=== PATIENT | female | born 1950 | race African-American/Black ===

== ENCOUNTER → 2017-02-17 | Outpatient (CLI) | payer MEDICAID ==
[2016-04-05 20:13] VITALS: BP 210/103
--- NOTE | 2017-02-17 13:11 | CT ---
HISTORY: Persistent headache and visual loss. Study: CT brain without contrast Comparison: None. Technique: Multiple axial images of the brain were obtained from the skull base to the vertex without administra tion of IV contrast. Dose reduction techniques including Automated Exposure Control (AEC) and adjust ment of mA and kV were utilized. Findings: Age related cortical atrophy and chronic small vessel ischemic changes. No acute intraparenchymal hem orrhage or mass can be identified. No extra-axial fluid collections are seen. No alteration in the attenuation of the brain parenchyma can be identified to suggest acute or subacute ischemic change. The ventricular system is symmetric and nondilated. The extracranial structures are grossly unremark able. IMPRESSION: No acute intracranial pathology. Reported By:
== END ==
LOC: RAD 12:02
PROVIDERS: ATTEND Nurse Practitioner Family
DX: G44.52 New daily persistent headache (NDPH) (principal); H54.7 Unspecified visual loss
CPT/HCPCS: 70450

== ENCOUNTER 2017-05-25 16:21 | Observation (INO) | payer MEDICAID ==
[2017-05-25 19:55] LABS: BASOPHILS # (AUTO) 0.1 X10^3/uL (0.0-0.1); BASOPHILS % (AUTO) 1.3 % (0.2-1.0); EOSINOPHILS # (AUTO) 0.1 x10^3/uL (0.0-0.2); EOSINOPHILS % (AUTO) 2.6 % (0.9-2.9); HEMATOCRIT 37.4 % (36.0-47.0); HEMOGLOBIN 12.2 g/dL (12.0-16.0); LYMPHOCYTES # (AUTO) 1.1 X10^3/uL (1.3-2.9); LYMPHOCYTES % (AUTO) 22.9 % (21.0-51.0); MEAN CORPUSCULAR HEMOGLOBIN 26.4 pg (27.0-34.0); MEAN CORPUSCULAR HGB CONC 32.7 g/dL (33.0-35.0); MEAN CORPUSCULAR VOLUME 80.9 fL (80.0-100.0); MEAN PLATELET VOLUME 8.1 fL (7.4-11.0); MONOCYTES # (AUTO) 0.3 x10^3/uL (0.3-0.8); MONOCYTES % (AUTO) 5.6 % (0.0-13.0); NEUTROPHILS # (AUTO) 3.3 x10^3/uL (2.2-4.8); NEUTROPHILS % (AUTO) 67.6 % (42.0-75.0); PLATELET COUNT 198 X10^3/uL (150.0-450.0); RED BLOOD COUNT 4.62 X10^6/uL (3.5-5.4); RED CELL DISTRIBUTION WIDTH 15.8 % (11.6-16.5); WHITE BLOOD COUNT 4.9 X10^3/uL (3.6-10.0)
[2017-05-25] MEDS ORDERED: NS 1/2 1000 ML IV 1,000 ML IV SCH (20:00)
[2017-05-25] MEDS ORDERED: NS 1000 ML 0 ML ONE (20:01)
[2017-05-25 20:07] LABS: BLOOD UREA NITROGEN 33 mg/dL (7-18); CALCIUM 9.3 mg/dL (8.5-10.1); CARBON DIOXIDE 30.3 mmol/L (21-32); CHLORIDE 102 mmol/L (98-107); COR NA(FOR HYPERGLY) 140 mmol/L (136-145); CREATININE 1.96 mg/dL (0.55-1.02); SODIUM 139 mmol/L (136-145); TROPONIN I 0.05 ng/mL (0-1.5); eGFR BLACK RACES 33 (>60); eGFR NON BLACK RACES 27 (>60)
[2017-05-25 20:12] LABS: ALANINE AMINOTRANSFERASE 20 Units/L (12-78); ALBUMIN 3.6 g/dL (3.4-5.0); ALKALINE PHOSPHATASE 72 Units/L (46-116); ASPARTATE AMINO TRANSFERASE 14 Units/L (15-37); CHOL/HDL RATIO 3.2 (0.0-5.0); CHOLESTEROL 224 mg/dL (0-200); CKMB % 0.9 % (<4); CREATINE KINASE 184 Units/L (26-192); CREATINE KINASE MB 1.7 ng/mL (0-4.0); HDL CHOLESTEROL 71 mg/dL (40-60); TOTAL PROTEIN 7.8 g/dL (6.4-8.2); TRIGLYCERIDES 136 mg/dL (0-150); TSH (3RD GENERATION) 2.583 uIU/mL (0.358-3.74)
[2017-05-25] MEDS ORDERED: RANITIDINE HCL 300 MG PO SCH (21:00)
[2017-05-25] MEDS: CATAPRES TAB 0.1 MG PO SCH ×2 (21:03→21:04)
[2017-05-25] MEDS: ZANTAC PO SCH (21:03)
[2017-05-25] MEDS: COREG TAB 25 MG PO SCH (21:04)
[2017-05-25] MEDS: ANTIVERT TAB 25 MG PO SCH (21:06)
[2017-05-25] MEDS ORDERED: NS 1/2 1000 ML IV 1,000 ML IV ONE (21:10)
--- NOTE | 2017-05-25 21:41 | CT ---
HISTORY: Vision impairment and dizziness. Study: CT brain without contrast Comparison: CT head dated February 17, 2017. Technique: Multiple axial images of the brain were obtained from the skull base to the vertex without administra tion of IV contrast. Dose reduction techniques including Automated Exposure Control (AEC) and adjust ment of mA and kV were utilized. Findings: Age-related cortical atrophy and chronic small vessel ischemic changes. No acute intraparenchymal hem orrhage or mass can be identified. No extra-axial fluid collections are seen. No alteration in the attenuation of the brain parenchyma can be identified to suggest acute or subacute ischemic change. The ventricular system is symmetric and nondilated. The extracranial structures are grossly unremark able. IMPRESSION: No acute intracranial pathology. Reported By:
[2017-05-25] MEDS ORDERED: PATIENT'S HOME MEDICATION (Meclizine Hcl [Meclizine Hcl] 12.5 MG) PO SCH (22:00)
--- NOTE | 2017-05-25 22:28 | RAD ---
HISTORY: Cardiomegaly and dizziness. Study: Portable chest. Comparison: Chest x-ray dated July 13, 2015. Findings: The trachea is midline. The cardiac silhouette is unremarkable. No obvious focal consolidation, ple ural effusion, or pneumothorax.. The bony thorax is unremarkable. IMPRESSION: No acute cardiopulmonary disease. Reported By:
[2017-05-26 04:13] LABS: BILIRUBIN,URINE NEGATIVE (NEGATIVE); BLOOD/HEMOGLOBIN,URINE 3+ (NEGATIVE); GLUCOSE, URINE NEGATIVE (NEGATIVE); KETONES,URINE NEGATIVE (NEGATIVE); LEUKOCYTE ESTERASE ,URINE 1+ (NEGATIVE); NITRITES,URINE NEGATIVE (NEGATIVE); PROTEIN,URINE 3+ (NEGATIVE); UROBILINOGEN,URINE NORMAL (NORMAL)
[2017-05-26 05:03] LABS: BASOPHILS # (AUTO) 0.1 X10^3/uL (0.0-0.1); BASOPHILS % (AUTO) 1.9 % (0.2-1.0); EOSINOPHILS # (AUTO) 0.1 x10^3/uL (0.0-0.2); EOSINOPHILS % (AUTO) 1.8 % (0.9-2.9); HEMATOCRIT 35.8 % (36.0-47.0); HEMOGLOBIN 11.8 g/dL (12.0-16.0); LYMPHOCYTES # (AUTO) 1.4 X10^3/uL (1.3-2.9); LYMPHOCYTES % (AUTO) 23.1 % (21.0-51.0); MEAN CORPUSCULAR HEMOGLOBIN 26.5 pg (27.0-34.0); MEAN CORPUSCULAR VOLUME 80.3 fL (80.0-100.0); MEAN PLATELET VOLUME 8.8 fL (7.4-11.0); MONOCYTES # (AUTO) 0.3 x10^3/uL (0.3-0.8); MONOCYTES % (AUTO) 5.2 % (0.0-13.0); NEUTROPHILS # (AUTO) 4.2 x10^3/uL (2.2-4.8); PLATELET COUNT 172 X10^3/uL (150.0-450.0); RED BLOOD COUNT 4.46 X10^6/uL (3.5-5.4); RED CELL DISTRIBUTION WIDTH 15.7 % (11.6-16.5); WHITE BLOOD COUNT 6.1 X10^3/uL (3.6-10.0)
[2017-05-26] MEDS: ANTIVERT TAB 25 MG PO SCH (05:12)
[2017-05-26] MEDS: NORCO 5/325 MG TAB PO PRN ×2 (05:13→10:53)
[2017-05-26 05:15] LABS: ALBUMIN 3.3 g/dL (3.4-5.0); CALCIUM 8.8 mg/dL (8.5-10.1); CARBON DIOXIDE 24.6 mmol/L (21-32); COR CA(FOR HYPOALB) 9.4 mg/dL (8.5-10.1); CREATININE 1.88 mg/dL (0.55-1.02); TOTAL PROTEIN 7.3 g/dL (6.4-8.2)
[2017-05-26 06:09] LABS: APPEARANCE,URINE CLOUDY (CLEAR); BACTERIA,URINE 3+ /HPF (NEGATIVE); COLOR,URINE DARK YELLOW (YELLOW); SQUAMOUS EPITHELIAL CELL,UR NUMEROUS /HPF (NEGATIVE)
[2017-05-26 06:10] LABS: AMORPHOUS SEDIMENT,UR 2+ /HPF (NEGATIVE)
[2017-05-26] MEDS ORDERED: NORVASC TAB 10 MG PO SCH (09:00)
[2017-05-26] MEDS ORDERED: PATIENT'S HOME MEDICATION (Amlodipine Besylate [Amlodipine Besylate] 10 MG) PO SCH (09:00)
[2017-05-26] MEDS ORDERED: ZESTRIL TAB 40 MG PO SCH (09:00)
[2017-05-26] MEDS: CATAPRES TAB 0.1 MG PO SCH (09:36)
[2017-05-26] MEDS: COREG TAB 25 MG PO SCH (09:36)
[2017-05-26] MEDS: ZANTAC PO SCH (09:37)
[2017-05-26 12:48] VITALS: BP 124/76
[2017-05-26 14:30] VITALS: BMI 55.7
== END 2017-05-26 16:45 | disposition home or self-care (01) ==
LOC: MED/SURG 16:21
PROVIDERS: ADMIT Internal Medicine; ATTEND Internal Medicine
DX: I16.0 Hypertensive urgency (principal); R94.31 Abnormal electrocardiogram [ECG] [EKG]; R94.4 Abnormal results of kidney function studies; R73.09 Other abnormal glucose; E78.00 Pure hypercholesterolemia, unspecified; R51 Headache; I50.30 Unspecified diastolic (congestive) heart failure; K21.9 Gastro-esophageal reflux disease without esophagitis; M19.90 Unspecified osteoarthritis, unspecified site; H53.8 Other visual disturbances
CPT/HCPCS: 36415; 70450; 71010; 80053; 80061; 81001; 82550; 82553; 84439; 84443; 84484; 85025; 93005; 93010; A4222; G0378

== ENCOUNTER 2017-10-31 11:58 | Inpatient (IN) | payer MEDICAID ==
[2017-10-31] MEDS ORDERED: HumuLIN R SUBCUT PRN (12:14)
--- NOTE | 2017-10-31 12:20 | DR.H&P ---
H&P - History & Physical for Day of: H&P Date: 10/31/17 - Chief Complaint Chief Complaint: sob, wheezing, swelling to legs - Allergies Allergies/Adverse Reactions: Allergies Allergy/AdvReac Type Severity Reaction Status Date / Time No Known Drug Allergies Allergy Verified 05/25/17 19:41 - History of Present Illness History of Present Illness: PT IS 67 WF DIRECT ADMIT FROM DR SIMS OFFICE WITH CO SOB, COUGH AND WHEEZING, LOWER EXTREMITY EDEMA. PT HAS PMH OF CHF, COPD , OA, HTN, DM. PT ADMITTED FOR TREATMENT AND EVALUATION FOR INCREASED SOB AND COPD WITH EXCERBATION. - Past Medical History Past Medical History: Arthritis, CHF, Coronary Artery Disease, Diabetes, Hypertension - Past Surgical History Surgical History: - Family History Family Medical History: Hypertension - Social History Does patient currently use any type of tobacco product: No Have you used tobacco products in the last 12 months: No Type of Tobacco Use: None Does any household member use tobacco: No Alcohol Use: None Drug Use: None - Review of Systems Constitutional: Weakness, Malaise Eyes: No Symptoms Reported ENT: Throat Pain Respiratory: Shortness of Breath, SOB with Excertion, Wheezing Cardiovascular: Edema Gastrointestinal: Nausea Genitourinary: No Symptoms Reported Musculoskeletal: Back Pain, Leg Pain Skin: No Symptoms Reported Neurological: Weakness - Physical Exam Vital Signs: Blood Pressure [Right Arm] 124/76 Blood Pressure 124/76 Oriented: Normal Eyes: Normal Ear: Normal Nose: Normal Throat: Normal Respiratory: Wheezes Throughout, RLL Diminished, LLL Diminished Cardiovascular: Edema : Normal Auscultation: Bowel Sounds: Normal Palpation: Normal Tenderness: Normal Skin: Decreased Turgur Musculoskeletal: Back:Thoracic, Back:Lumbar Psychiatric: Anxiety Affect: Anxious Speech Pattern: Clear, Appropriate - Assessment/Plan (1) COPD (chronic obstructive pulmonary disease) with acute bronchitis Status: Acute Plan: ADMIT, PNEUMONIA PROTOCOL. IV ABTX, SPUTUM, ABG ON ADMISSION. TELEMETRY , BP CONTROL. RESP THERAPY, ADMISSION LABS. BLOOD SUGAR CONTROL (2) CHF (congestive heart failure) Status: Acute (3) Hypertension Status: Acute (4) Hypertension Status: Acute
[2017-10-31] MEDS ORDERED: SNACK - Diabetic Appropriate PO SCH (20:00)
[2017-10-31] MEDS ORDERED: NS 1/2 1000 ML IV 1,000 ML IV SCH (21:20)
[2017-10-31] MEDS ORDERED: TUSSIONEX PENNKINETIC SUSP PO PRN (21:20)
[2017-10-31] MEDS ORDERED: NS 1/2 1000 ML IV 1,000 ML IV ONE (21:41)
[2017-10-31] MEDS: ROBITUSSIN DM PO SCH (22:01)
[2017-10-31] MEDS: ZITHROMAX INJ 500 MG VIAL 500 MG in NS 250 ML IV 250 ML IV SCH (22:02)
[2017-10-31 22:15] LABS: BASOPHILS # (AUTO) 0.1 X10^3/uL (0.0-0.1); BASOPHILS % (AUTO) 0.8 % (0.2-1.0); EOSINOPHILS # (AUTO) 0.1 x10^3/uL (0.0-0.2); EOSINOPHILS % (AUTO) 2.1 % (0.9-2.9); HEMATOCRIT 35.9 % (36.0-47.0); HEMOGLOBIN 11.8 g/dL (12.0-16.0); LYMPHOCYTES # (AUTO) 1.8 X10^3/uL (1.3-2.9); LYMPHOCYTES % (AUTO) 28.2 % (21.0-51.0); MEAN CORPUSCULAR HEMOGLOBIN 26.7 pg (27.0-34.0); MEAN CORPUSCULAR HGB CONC 32.9 g/dL (33.0-35.0); MEAN CORPUSCULAR VOLUME 80.9 fL (80.0-100.0); MEAN PLATELET VOLUME 8.8 fL (7.4-11.0); MONOCYTES # (AUTO) 0.2 x10^3/uL (0.3-0.8); MONOCYTES % (AUTO) 3.9 % (0.0-13.0); NEUTROPHILS # (AUTO) 4.1 x10^3/uL (2.2-4.8); PLATELET COUNT 182 X10^3/uL (150.0-450.0); RED BLOOD COUNT 4.44 X10^6/uL (3.5-5.4); RED CELL DISTRIBUTION WIDTH 16.6 % (11.6-16.5); WHITE BLOOD COUNT 6.3 X10^3/uL (3.6-10.0)
[2017-10-31 22:43] VITALS: BMI 57.4
[2017-10-31 23:26] LABS: ALBUMIN 3.3 g/dL (3.4-5.0); CALCIUM 8.2 mg/dL (8.5-10.1); CARBON DIOXIDE 25.7 mmol/L (21-32); COR CA(FOR HYPOALB) 8.8 mg/dL (8.5-10.1); CREATININE 2.14 mg/dL (0.55-1.02); TOTAL PROTEIN 7.2 g/dL (6.4-8.2)
[2017-10-31 23:52] LABS: ABG BASE EXCESS 1.7 mmol/L (-2.0-2.0); ABG HCO3 26.6 mmol/L (22-26)
[2017-10-31 23:53] LABS: ABG ALLEN TEST POS
[2017-11-01] MEDS ORDERED: SALINE 3% 15 ML NEB TX ONE (01:23)
[2017-11-01] MEDS ORDERED: SALINE 3% 15 ML NEB TX NEB ONE (01:30)
[2017-11-01] MEDS ORDERED: NORMODYNE INJ 20 MG VIAL IV PRN (02:16)
--- NOTE | 2017-11-01 04:07 | RAD ---
PA and lateral Chest Indication: Shortness of breath Comparison: 05/25/2017 Findings: The trachea is midline. The cardiac silhouette is unremarkable. Increased peribronchial thickening bilaterally suggest bronchitis. No focal airspace opacity, pleural effusion or pneumothorax.. The [place] thorax is unremarkable. IMPRESSION: 1. Bilateral increased peribronchial thickening suggests acute bronchitis without evidence of bronch opneumonia. Reported By:
[2017-11-01] MEDS: DUONEB 0.5 MG/3 MG NEB SCH ×5 (05:50→20:46)
[2017-11-01 06:14] LABS: BASOPHILS % (AUTO) 0.5 % (0.2-1.0); EOSINOPHILS # (AUTO) 0.1 x10^3/uL (0.0-0.2); EOSINOPHILS % (AUTO) 2.1 % (0.9-2.9); HEMATOCRIT 33.2 % (36.0-47.0); LYMPHOCYTES # (AUTO) 1.6 X10^3/uL (1.3-2.9); LYMPHOCYTES % (AUTO) 30.6 % (21.0-51.0); MEAN CORPUSCULAR HEMOGLOBIN 26.6 pg (27.0-34.0); MEAN CORPUSCULAR HGB CONC 33.1 g/dL (33.0-35.0); MEAN CORPUSCULAR VOLUME 80.2 fL (80.0-100.0); MEAN PLATELET VOLUME 8.1 fL (7.4-11.0); MONOCYTES # (AUTO) 0.2 x10^3/uL (0.3-0.8); MONOCYTES % (AUTO) 4.6 % (0.0-13.0); NEUTROPHILS # (AUTO) 3.4 x10^3/uL (2.2-4.8); NEUTROPHILS % (AUTO) 62.2 % (42.0-75.0); PLATELET COUNT 155 X10^3/uL (150.0-450.0); RED BLOOD COUNT 4.14 X10^6/uL (3.5-5.4); RED CELL DISTRIBUTION WIDTH 16.2 % (11.6-16.5); WHITE BLOOD COUNT 5.4 X10^3/uL (3.6-10.0)
[2017-11-01 06:53] LABS: ALBUMIN 3.1 g/dL (3.4-5.0); CALCIUM 8.1 mg/dL (8.5-10.1); COR CA(FOR HYPOALB) 8.8 mg/dL (8.5-10.1); CREATININE 1.94 mg/dL (0.55-1.02)
[2017-11-01] MEDS: ROBITUSSIN DM PO SCH ×4 (08:20→20:50)
[2017-11-01] MEDS: PULMICORT NEB TX 0.5 MG NEB SCH ×2 (09:38→20:46)
--- NOTE | 2017-11-01 12:39 | RAD ---
Right shoulder three views Indication: Pain after fall Findings: Acromioclavicular and glenohumeral joints demonstrate degenerative change without cortical lucency or malalignment. Impression: Degenerative change without acute fracture Reported By:
--- NOTE | 2017-11-01 12:42 | RAD ---
Cervical spine three views Indication: Pain after fall Findings: Prevertebral soft tissues are normal. Craniocervical junction is intact there is disc space narrowing at C6-C7 cervicothoracic junction not well visualized. Impression: 1. No convincing displaced fracture, within the cervical thoracic junction is poorly evaluated. Corre late with point tenderness and follow-up with further imaging if there is high suspicion for acute in jury Reported By:
--- NOTE | 2017-11-01 13:39 | PCM.PROG ---
Progress Note - Progress Note for Day of Date: 11/01/17 - Subjective Subjective: 67 BF ADMITTED ON 10/31 WITH COPD EXACERBATION, SOB, WHEEZING AND LOWER EXTREMITY SWELLING WITH WEAKNESS. 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 PT CONTINUES WITH CO SOB AND WHEEZING. PT CO RIGHT SHOULDER PAIN AND NECK PAIN FROM FALL COMMUNICATION EQUIPMENT MECHANIC DUE TO WEAKNESS. PLAN TO OBTAIN XRAYS OF SHOULDER AND CPSINE, CONTINUE JT NEBS, LOW DOSE STEROIDS, IV ATBX, BLOOD SUGAR CONTROL - Past Medical Family Social History Past Med/Fam/Surg Hx: No changes since H&P Allergies: Allergies No Known Drug Allergies Allergy (Verified 10/31/17 21:01) - Review of Systems ROS: No change since H&P - Vital Signs and I&O's Vital Signs: Temperature 97.6 F Pulse Rate [Radial] 67 Pulse Rate 69 Respiratory Rate 17 Blood Pressure [Right Arm] 141/85 Blood Pressure 124/76 O2 Sat by Pulse Oximetry 95 Intake and Output: Intake & Output 10/30/17 10/31/17 11/01/17 11/02/17 11:59 11:59 11:59 11:59 Intake Total 500 Balance 500 - Physical Exam Oriented: Normal Eyes: Normal Ear: Normal Nose: Normal Throat: Normal Respiratory: Diminished, Wheezes Cardiovascular: Edema : Normal Auscultation: Bowel Sounds: Normal Tenderness: Normal Skin: Decreased Turgur Musculoskeletal: Right, Shoulder, Back:Thoracic, Back:Lumbar Psychiatric: Anxiety Affect: Anxious Speech Pattern: Clear, Appropriate - Laboratory and Diagnostics Result Diagrams: 11/01/17 05:32 11/01/17 05:32 Labs: Laboratory WBC 5.4 X10^3/uL (3.6-10.0) 11/01/17 05:32 RBC 4.14 X10^6/uL (3.5-5.4) 11/01/17 05:32 Hgb 11.0 g/dL (12.0-16.0) L 11/01/17 05:32 Hct 33.2 % (36.0-47.0) L 11/01/17 05:32 MCV 80.2 fL (80.0-100.0) 11/01/17 05:32 MCH 26.6 pg (27.0-34.0) L 11/01/17 05:32 MCHC 33.1 g/dL (33.0-35.0) 11/01/17 05:32 RDW 16.2 % (11.6-16.5) 11/01/17 05:32 Plt Count 155 X10^3/uL (150.0-450.0) 11/01/17 05:32 MPV 8.1 fL (7.4-11.0) 11/01/17 05:32 Neut % (Auto) 62.2 % (42.0-75.0) 11/01/17 05:32 Lymph % (Auto) 30.6 % (21.0-51.0) 11/01/17 05:32 [place] % (Auto) 4.6 % (0.0-13.0) 11/01/17 05:32 Eos % (Auto) 2.1 % (0.9-2.9) 11/01/17 05:32 Baso % (Auto) 0.5 % (0.2-1.0) 11/01/17 05:32 Neut # (Auto) 3.4 x10^3/uL (2.2-4.8) 11/01/17 05:32 Lymph # (Auto) 1.6 X10^3/uL (1.3-2.9) 11/01/17 05:32 [place] # (Auto) 0.2 x10^3/uL (0.3-0.8) L 11/01/17 05:32 Eos # (Auto) 0.1 x10^3/uL (0.0-0.2) 11/01/17 05:32 Baso # (Auto) 0.0 X10^3/uL (0.0-0.1) 11/01/17 05:32 Absolute Nucleated RBC 0.0 /100WBC 11/01/17 05:32 Sample Site Right radial 10/31/17 23:45 ABG pH 7.410 (7.35-7.45) 10/31/17 23:45 ABG pCO2 42.0 mmHg (35.0-45.0) 10/31/17 23:45 ABG pO2 85.0 mmHg (80.0-100.0) 10/31/17 23:45 ABG HCO3 26.6 mmol/L (22-26) H 10/31/17 23:45 ABG O2 Saturation 96.0 % (90-100) 10/31/17 23:45 ABG Base Excess 1.7 mmol/L (-2.0-2.0) 10/31/17 23:45 Francisco Javier Test Pos 10/31/17 23:45 A-a Gradient 12.0 mmHg 10/31/17 23:45 FiO2 21.000 10/31/17 23:45 Blood Gas Comments Pricila well jts 10/31/17 23:45 Sodium 139 mmol/L (136-145) 11/01/17 05:32 Corrected Sodium 140 mmol/L (136-145) 11/01/17 05:32 Potassium 3.6 mmol/L (3.5-5.1) 11/01/17 05:32 Chloride 106 mmol/L (98-107) 11/01/17 05:32 Carbon Dioxide 25.0 mmol/L (21-32) 11/01/17 05:32 BUN 29 mg/dL (7-18) H 11/01/17 05:32 Creatinine 1.94 mg/dL (0.55-1.02) H 11/01/17 05:32 Est GFR (MDRD) Af Amer 33 (>60) L 11/01/17 05:32 Est GFR (MDRD) Non-Af 28 (>60) L 11/01/17 05:32 Glucose 131 mg/dL (65-99) H 11/01/17 05:32 POC Glucose (mg/dL) 129 mg/dL (65-99) H 11/01/17 11:23 Calcium 8.1 mg/dL (8.5-10.1) L 11/01/17 05:32 Corrected Calcium 8.8 mg/dL (8.5-10.1) 11/01/17 05:32 Magnesium 1.8 mg/dL (1.7-2.9) 11/01/17 05:32 Total Bilirubin 0.40 mg/dL (0.2-1.0) 11/01/17 05:32 AST 14 Units/L (15-37) L 11/01/17 05:32 ALT 15 Units/L (12-78) 11/01/17 05:32 Alkaline Phosphatase 67 Units/L (46-116) 11/01/17 05:32 Total Protein 7.0 g/dL (6.4-8.2) 11/01/17 05:32 Albumin 3.1 g/dL (3.4-5.0) L 11/01/17 05:32 Globulin 3.9 g/dL (2.5-4.5) 11/01/17 05:32 Albumin/Globulin Ratio 0.8 Ratio (1.1-2.1) L 11/01/17 05:32 - Plan (1) COPD (chronic obstructive pulmonary disease) with acute bronchitis Status: Acute Plan: PNEUMONIA PROTOCOL. IV ABTX, SPUTUM, ABG ON ADMISSION. TELEMETRY, BP CONTROL. RESP THERAPY, AM LABS, LOW DOSE SOLU MEDROL IV. 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 PAIN CONTROL
[2017-11-01] MEDS: ANTIVERT TAB 25 MG PO SCH ×2 (13:45→21:00)
[2017-11-01] MEDS: MILK OF MAGNESIA PO SCH ×2 (13:57→21:05)
[2017-11-01] MEDS: COLACE CAP 100 MG PO SCH ×2 (13:57→21:05)
[2017-11-01] MEDS: SOLU-Medrol 40 MG VIAL IVP SCH ×2 (15:21→22:09)
[2017-11-01] MEDS: NORCO 7.5/325 MG TAB PO PRN (15:22)
[2017-11-01] MEDS ORDERED: SNACK - Diabetic Appropriate PO SCH (20:00)
[2017-11-01] MEDS: SNACK - Diabetic Appropriate PO SCH (20:48)
[2017-11-01] MEDS: COREG TAB 25 MG PO SCH (20:49)
[2017-11-01] MEDS: ZANTAC PO SCH (20:50)
[2017-11-01] MEDS: ZITHROMAX INJ 500 MG VIAL 500 MG in NS 250 ML IV 250 ML IV SCH (20:51)
[2017-11-01] MEDS: CATAPRES TAB 0.1 MG PO SCH (20:57)
[2017-11-01] MEDS: HumuLIN R SUBCUT PRN (21:11)
[2017-11-02] MEDS: DUONEB 0.5 MG/3 MG NEB SCH ×6 (01:14→20:41)
[2017-11-02] MEDS ORDERED: K-LYTE EFFERVESCENT PO PRN (02:32)
[2017-11-02] MEDS ORDERED: K-RIDER 10 MEQ/NS 100 ML 10 MEQ/100 ML BAG IV PRN (02:32)
[2017-11-02] MEDS ORDERED: POTASSIUM CHL 60 MEQ/NS 0.45% 500 ML IV PRN (02:32)
[2017-11-02] MEDS ORDERED: POTASSIUM CHLORIDE LIQ 20 MEQ UDC PO PRN (02:32)
[2017-11-02] MEDS ORDERED: POTASSIUM CHL 40 MEQ/NS 0.45% 500 ML IV PRN (02:32)
[2017-11-02] MEDS: MAGNESIUM SULFATE 1 GM/100 mL PREMIX 1 GM/100 ML BAG IV PRN ×2 (02:41→03:50)
[2017-11-02] MEDS: ANTIVERT TAB 25 MG PO SCH ×3 (05:49→21:00)
[2017-11-02] MEDS: SOLU-Medrol 40 MG VIAL IVP SCH (05:52)
[2017-11-02] MEDS: HumuLIN R SUBCUT PRN ×2 (06:32→12:25)
[2017-11-02 06:42] LABS: BASOPHILS % (AUTO) 0.5 % (0.2-1.0); EOSINOPHILS % (AUTO) 0.1 % (0.9-2.9); HEMATOCRIT 38.5 % (36.0-47.0); HEMOGLOBIN 12.5 g/dL (12.0-16.0); LYMPHOCYTES # (AUTO) 0.5 X10^3/uL (1.3-2.9); LYMPHOCYTES % (AUTO) 5.9 % (21.0-51.0); MEAN CORPUSCULAR HEMOGLOBIN 26.8 pg (27.0-34.0); MEAN CORPUSCULAR HGB CONC 32.6 g/dL (33.0-35.0); MEAN CORPUSCULAR VOLUME 82.3 fL (80.0-100.0); MONOCYTES # (AUTO) 0.1 x10^3/uL (0.3-0.8); MONOCYTES % (AUTO) 0.7 % (0.0-13.0); NEUTROPHILS # (AUTO) 7.3 x10^3/uL (2.2-4.8); NEUTROPHILS % (AUTO) 92.8 % (42.0-75.0); PLATELET COUNT 211 X10^3/uL (150.0-450.0); RED BLOOD COUNT 4.68 X10^6/uL (3.5-5.4); RED CELL DISTRIBUTION WIDTH 16.3 % (11.6-16.5); WHITE BLOOD COUNT 7.9 X10^3/uL (3.6-10.0)
[2017-11-02] MEDS: NORCO 7.5/325 MG TAB PO PRN ×3 (06:57→20:56)
[2017-11-02 07:09] LABS: ALANINE AMINOTRANSFERASE 19 Units/L (12-78); ALBUMIN 3.7 g/dL (3.4-5.0); ALKALINE PHOSPHATASE 82 Units/L (46-116); ASPARTATE AMINO TRANSFERASE 13 Units/L (15-37); BLOOD UREA NITROGEN 28 mg/dL (7-18); CALCIUM 8.5 mg/dL (8.5-10.1); CARBON DIOXIDE 25.6 mmol/L (21-32); CHLORIDE 102 mmol/L (98-107); COR NA(FOR HYPERGLY) 138 mmol/L (136-145); CREATININE 1.74 mg/dL (0.55-1.02); SODIUM 136 mmol/L (136-145); TOTAL PROTEIN 8.2 g/dL (6.4-8.2); eGFR BLACK RACES 38 (>60); eGFR NON BLACK RACES 31 (>60)
[2017-11-02 07:26] LABS: PLATELET MORPHOLOGY COMMENT NORMAL (NORMAL)
[2017-11-02] MEDS: ROBITUSSIN DM PO SCH ×4 (08:53→20:56)
[2017-11-02] MEDS: ZANTAC PO SCH ×2 (08:53→20:55)
[2017-11-02] MEDS: COREG TAB 25 MG PO SCH ×2 (08:53→20:55)
[2017-11-02] MEDS: ASPIRIN 81 MG CHEWTAB PO SCH (08:54)
[2017-11-02] MEDS: CATAPRES TAB 0.1 MG PO SCH ×2 (08:54→20:56)
[2017-11-02] MEDS: ZESTRIL TAB 40 MG PO SCH (08:54)
[2017-11-02] MEDS: PULMICORT NEB TX 0.5 MG NEB SCH ×2 (09:25→20:41)
--- NOTE | 2017-11-02 11:54 | PCM.PROG ---
Progress Note - Progress Note for Day of Date: 11/02/17 - Subjective Subjective: 67 BF ADMITTED ON 10/31 WITH COPD EXACERBATION, SOB, WHEEZING AND LOWER EXTREMITY SWELLING WITH WEAKNESS. 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 PT CONTINUES WITH CO SOB AND WHEEZING, UNABLE TO PRODUCE SPUTUM. CONTINUE JT NEBS, LOW DOSE STEROIDS, IV ATBX, BLOOD SUGAR CONTROL - Past Medical Family Social History Past Med/Fam/Surg Hx: No changes since H&P Allergies: Allergies No Known Drug Allergies Allergy (Verified 10/31/17 21:01) - Review of Systems ROS: No change since H&P - Vital Signs and I&O's Vital Signs: Temperature 97.5 F Pulse Rate [Right] 64 Pulse Rate [Radial] 59 Pulse Rate 73 Respiratory Rate 15 Blood Pressure [Right Arm] 184/83 Blood Pressure 124/76 O2 Sat by Pulse Oximetry 96 Intake and Output: Intake & Output 10/30/17 10/31/17 11/01/17 11/02/17 11:59 11:59 11:59 11:59 Intake Total 500 1750 Output Total 670 Balance 500 1080 - Physical Exam Oriented: Normal Eyes: Normal Ear: Normal Nose: Normal Throat: Normal Respiratory: Wheezes, Rhonchi Cardiovascular: Edema : Normal Auscultation: Bowel Sounds: Normal Tenderness: Normal Skin: Decreased Turgur Musculoskeletal: Right, Shoulder, Back:Thoracic, Back:Lumbar Psychiatric: Anxiety Affect: Anxious Speech Pattern: Clear, Appropriate - Laboratory and Diagnostics Result Diagrams: 11/02/17 06:15 11/02/17 06:15 Labs: 10/31/17 21:52 Blood Blood Culture - Preliminary 10/31/17 21:40 Blood Blood Culture - Preliminary Laboratory WBC 7.9 X10^3/uL (3.6-10.0) 11/02/17 06:15 RBC 4.68 X10^6/uL (3.5-5.4) 11/02/17 06:15 Hgb 12.5 g/dL (12.0-16.0) 11/02/17 06:15 Hct 38.5 % (36.0-47.0) 11/02/17 06:15 MCV 82.3 fL (80.0-100.0) 11/02/17 06:15 MCH 26.8 pg (27.0-34.0) L 11/02/17 06:15 MCHC 32.6 g/dL (33.0-35.0) L 11/02/17 06:15 RDW 16.3 % (11.6-16.5) 11/02/17 06:15 Plt Count 211 X10^3/uL (150.0-450.0) 11/02/17 06:15 Plt Count Comment Adequate (ADEQUATE) 11/02/17 06:15 MPV 8.0 fL (7.4-11.0) 11/02/17 06:15 Neut % (Auto) 92.8 % (42.0-75.0) H 11/02/17 06:15 Lymph % (Auto) 5.9 % (21.0-51.0) L 11/02/17 06:15 [place] % (Auto) 0.7 % (0.0-13.0) 11/02/17 06:15 Eos % (Auto) 0.1 % (0.9-2.9) L 11/02/17 06:15 Baso % (Auto) 0.5 % (0.2-1.0) 11/02/17 06:15 Neut # (Auto) 7.3 x10^3/uL (2.2-4.8) H 11/02/17 06:15 Lymph # (Auto) 0.5 X10^3/uL (1.3-2.9) L 11/02/17 06:15 [place] # (Auto) 0.1 x10^3/uL (0.3-0.8) L 11/02/17 06:15 Eos # (Auto) 0.0 x10^3/uL (0.0-0.2) 11/02/17 06:15 Baso # (Auto) 0.0 X10^3/uL (0.0-0.1) 11/02/17 06:15 Absolute Nucleated RBC 0.0 /100WBC 11/02/17 06:15 Total Counted 100 11/02/17 06:15 Neutrophils % (Manual) 93 % (39-76) H 11/02/17 06:15 Lymphocytes % (Manual) 7 % (13-43) L 11/02/17 06:15 Plt Morphology Comment Normal (NORMAL) 11/02/17 06:15 RBC Morphology Normal (NORMAL) 11/02/17 06:15 Sample Site Right radial 10/31/17 23:45 ABG pH 7.410 (7.35-7.45) 10/31/17 23:45 ABG pCO2 42.0 mmHg (35.0-45.0) 10/31/17 23:45 ABG pO2 85.0 mmHg (80.0-100.0) 10/31/17 23:45 ABG HCO3 26.6 mmol/L (22-26) H 10/31/17 23:45 ABG O2 Saturation 96.0 % (90-100) 10/31/17 23:45 ABG Base Excess 1.7 mmol/L (-2.0-2.0) 10/31/17 23:45 Francisco Javier Test Pos 10/31/17 23:45 A-a Gradient 12.0 mmHg 10/31/17 23:45 FiO2 21.000 10/31/17 23:45 Blood Gas Comments Pricila well jts 10/31/17 23:45 Sodium 136 mmol/L (136-145) 11/02/17 06:15 Corrected Sodium 138 mmol/L (136-145) 11/02/17 06:15 Potassium 4.4 mmol/L (3.5-5.1) 11/02/17 06:15 Chloride 102 mmol/L (98-107) 11/02/17 06:15 Carbon Dioxide 25.6 mmol/L (21-32) 11/02/17 06:15 BUN 28 mg/dL (7-18) H 11/02/17 06:15 Creatinine 1.74 mg/dL (0.55-1.02) H 11/02/17 06:15 Est GFR (MDRD) Af Amer 38 (>60) L 11/02/17 06:15 Est GFR (MDRD) Non-Af 31 (>60) L 11/02/17 06:15 Glucose 172 mg/dL (65-99) H 11/02/17 06:15 POC Glucose (mg/dL) 241 mg/dL (65-99) H 11/02/17 11:12 Calcium 8.5 mg/dL (8.5-10.1) 11/02/17 06:15 Corrected Calcium TNP 11/02/17 06:15 Magnesium 2.7 mg/dL (1.7-2.9) 11/02/17 06:15 Total Bilirubin 0.30 mg/dL (0.2-1.0) 11/02/17 06:15 AST 13 Units/L (15-37) L 11/02/17 06:15 ALT 19 Units/L (12-78) 11/02/17 06:15 Alkaline Phosphatase 82 Units/L (46-116) 11/02/17 06:15 Total Protein 8.2 g/dL (6.4-8.2) 11/02/17 06:15 Albumin 3.7 g/dL (3.4-5.0) 11/02/17 06:15 Globulin 4.5 g/dL (2.5-4.5) 11/02/17 06:15 Albumin/Globulin Ratio 0.8 Ratio (1.1-2.1) L 11/02/17 06:15 - Plan (1) COPD (chronic obstructive pulmonary disease) with acute bronchitis Status: Acute Plan: PNEUMONIA PROTOCOL. IV ABTX, SPUTUM UNCOLLECTED, ENCOURAGED PULMONARY TOILETING. ABG ON ADMISSION. TELEMETRY, BP CONTROL. RESP THERAPY, AM LABS, LOW DOSE SOLU MEDROL IV WITH IMPROVED SOB AND WHEEZING THIS AM. 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 PAIN CONTROL
[2017-11-02] MEDS ORDERED: SALINE 3% 15 ML NEB TX ONE (13:48)
[2017-11-02] MEDS: SNACK - Diabetic Appropriate PO SCH (20:55)
[2017-11-02] MEDS: COLACE CAP 100 MG PO SCH (20:56)
[2017-11-02] MEDS: MILK OF MAGNESIA PO SCH (20:57)
[2017-11-03] MEDS: DUONEB 0.5 MG/3 MG NEB SCH ×3 (00:57→09:29)
[2017-11-03 05:38] LABS: BASOPHILS % (AUTO) 0.3 % (0.2-1.0); EOSINOPHILS % (AUTO) 0.1 % (0.9-2.9); HEMATOCRIT 32.7 % (36.0-47.0); HEMOGLOBIN 10.9 g/dL (12.0-16.0); LYMPHOCYTES # (AUTO) 1.4 X10^3/uL (1.3-2.9); LYMPHOCYTES % (AUTO) 18.8 % (21.0-51.0); MEAN CORPUSCULAR HEMOGLOBIN 26.6 pg (27.0-34.0); MEAN CORPUSCULAR HGB CONC 33.3 g/dL (33.0-35.0); MEAN CORPUSCULAR VOLUME 79.8 fL (80.0-100.0); MEAN PLATELET VOLUME 8.2 fL (7.4-11.0); MONOCYTES # (AUTO) 0.4 x10^3/uL (0.3-0.8); MONOCYTES % (AUTO) 4.6 % (0.0-13.0); NEUTROPHILS # (AUTO) 5.8 x10^3/uL (2.2-4.8); NEUTROPHILS % (AUTO) 76.2 % (42.0-75.0); PLATELET COUNT 186 X10^3/uL (150.0-450.0); WHITE BLOOD COUNT 7.6 X10^3/uL (3.6-10.0)
[2017-11-03 05:39] LABS: ALBUMIN 3.2 g/dL (3.4-5.0); CALCIUM 8.1 mg/dL (8.5-10.1); CARBON DIOXIDE 28.4 mmol/L (21-32); COR CA(FOR HYPOALB) 8.7 mg/dL (8.5-10.1); CREATININE 2.04 mg/dL (0.55-1.02); TOTAL PROTEIN 7.4 g/dL (6.4-8.2)
[2017-11-03] MEDS: ANTIVERT TAB 25 MG PO SCH (06:00)
[2017-11-03] MEDS: PULMICORT NEB TX 0.5 MG NEB SCH (09:30)
[2017-11-03] MEDS: ZANTAC PO SCH (09:56)
[2017-11-03] MEDS: CATAPRES TAB 0.1 MG PO SCH (09:57)
[2017-11-03] MEDS: ZESTRIL TAB 40 MG PO SCH (09:57)
[2017-11-03] MEDS: ASPIRIN 81 MG CHEWTAB PO SCH (09:57)
[2017-11-03] MEDS: COREG TAB 25 MG PO SCH (09:57)
[2017-11-03] MEDS: ROBITUSSIN DM PO SCH (09:57)
[2017-11-03 11:11] VITALS: BP 174/76
== END 2017-11-03 11:10 | disposition home or self-care (01) | DRG 192 ==
LOC: ICU 11:58 → OBSVTOIN 11-01 09:00 → MED/SURG 11-02 19:05
PROVIDERS: ADMIT Internal Medicine; ATTEND Internal Medicine
DX: J44.1 Chronic obstructive pulmonary disease with (acute) exacerbation (principal); J20.8 Acute bronchitis due to other specified organisms; R94.4 Abnormal results of kidney function studies; E11.65 Type 2 diabetes mellitus with hyperglycemia; R06.02 Shortness of breath; R60.0 Localized edema; I10 Essential (primary) hypertension; I25.10 Atherosclerotic heart disease of native coronary artery without angina pectoris; I50.9 Heart failure, unspecified; M25.511 Pain in right shoulder; M54.2 Cervicalgia; Z91.81 History of falling
CPT/HCPCS: 36415; 36600; 71046; 72040; 73030; 80053; 82803; 83735; 85025; 87040; 87070; 87205; 93005; 93010; 94640; A4222; G0378; J0456; J1815; J2920; J3490; J7620; J7626

== ENCOUNTER 2018-05-25 12:51 | Observation (INO) ==
[2018-05-25 13:00] VITALS: BMI 59.5
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
[2018-05-25 16:16] LABS: BASOPHILS % (AUTO) 0.8 % (0.2-1.0); EOSINOPHILS # (AUTO) 0.1 x10^3/uL (0.0-0.2); EOSINOPHILS % (AUTO) 1.3 % (0.9-2.9); HEMATOCRIT 34.6 % (36.0-47.0); HEMOGLOBIN 10.9 g/dL (12.0-16.0); LYMPHOCYTES # (AUTO) 2.2 X10^3/uL (1.3-2.9); MEAN CORPUSCULAR HEMOGLOBIN 26.3 pg (27.0-34.0); MEAN CORPUSCULAR HGB CONC 31.5 g/dL (33.0-35.0); MEAN CORPUSCULAR VOLUME 83.6 fL (80.0-100.0); MEAN PLATELET VOLUME 8.1 fL (7.4-11.0); MONOCYTES # (AUTO) 0.4 x10^3/uL (0.3-0.8); MONOCYTES % (AUTO) 7.1 % (0.0-13.0); NEUTROPHILS # (AUTO) 2.5 x10^3/uL (2.2-4.8); NEUTROPHILS % (AUTO) 48.8 % (42.0-75.0); PLATELET COUNT 211 X10^3/uL (150.0-450.0); RED BLOOD COUNT 4.14 X10^6/uL (3.5-5.4); RED CELL DISTRIBUTION WIDTH 16.3 % (11.6-16.5); WHITE BLOOD COUNT 5.2 X10^3/uL (3.6-10.0)
[2018-05-25 16:24] LABS: ALBUMIN 3.3 g/dL (3.4-5.0); CALCIUM 8.8 mg/dL (8.5-10.1); CARBON DIOXIDE 24.9 mmol/L (21-32); COR CA(FOR HYPOALB) 9.4 mg/dL (8.5-10.1); CREATININE 2.39 mg/dL (0.55-1.02); TOTAL PROTEIN 7.7 g/dL (6.4-8.2)
[2018-05-25 16:39] LABS: PLATELET MORPHOLOGY COMMENT NORMAL (NORMAL)
[2018-05-25] MEDS ORDERED: NS 1000 ML 1,000 ML IV ONE (17:36)
[2018-05-25] MEDS ORDERED: NS 1000 ML 1,000 ML ONE (17:37)
[2018-05-25 18:32] LABS: BILIRUBIN,URINE NEGATIVE (NEGATIVE); BLOOD/HEMOGLOBIN,URINE 1+ (NEGATIVE); GLUCOSE, URINE NEGATIVE (NEGATIVE); KETONES,URINE NEGATIVE (NEGATIVE); LEUKOCYTE ESTERASE ,URINE NEGATIVE (NEGATIVE); NITRITES,URINE NEGATIVE (NEGATIVE); PROTEIN,URINE 2+ (NEGATIVE); UROBILINOGEN,URINE NORMAL (NORMAL)
[2018-05-25 18:33] LABS: APPEARANCE,URINE HAZY (CLEAR); COLOR,URINE YELLOW (YELLOW)
[2018-05-25 18:38] LABS: RBC,URINE 0-2 /HPF (NONE SEEN)
[2018-05-25 18:39] LABS: AMORPHOUS SEDIMENT,UR TRACE /HPF (NEGATIVE); BACTERIA,URINE NEGATIVE /HPF (NEGATIVE); SQUAMOUS EPITHELIAL CELL,UR NEGATIVE /HPF (NEGATIVE)
--- NOTE | 2018-05-25 19:37 | DR.DIZZY ---
HPI Time seen Time Seen by Provider: 05/25/18 14:34 PCP Primary Care Physician: KARLEE Complaint Chief Complaint:: PT. HAD A FALL AT HOME. EMS WENT TO ASSIST PT. AND PT. WAS UNABLE TO STAND. PT. JUST GOT HOME YESTERDAY FROM [facility] IN [place], [place]. PT. STATES SHE AMBULATES WITH A CANE AT HOME. PT. DENIES PAIN FROM FALL. Source History Provided: Patient and EMS Mode of Arrival Mode of Arrival: EMS Timing Onset of Chief Complaint: 05/25/18 Context Stroke Symptoms: None PMH PMH Past Medical History: Yes Past Medical History: Arthritis, CHF, Coronary Artery Disease, CVA, Diabetes and Hypertension Past Surgical History: Yes Surgical History: Family History History of Family Medical Conditions: Yes Family Medical History: Hypertension Social History Does patient currently use any type of tobacco product: No Have you used tobacco products in the last 12 months: No Type of Tobacco Use: None Does any household member use tobacco: No Alcohol Use: None Do you use any recreational Drugs:: No Lives With: Family Lives Where: Home infectious screening In the last 2 months have you had wt loss of >10#?: NO Have you had fever, night sweats or hemotysis?: No Have you traveled outside the country in the last 6 months?: No Isolation: Standard PE Vital Signs Vitals: Temperature 99 F Pulse Rate [Right Brachial] 70 Pulse Rate 70 Respiratory Rate 20 Blood Pressure [Left Arm] 186/84 Blood Pressure [Right Arm] 136/71 Blood Pressure 138/89 O2 Sat by Pulse Oximetry 100 General Limitations: No Limitations and Language Barrier General Appearance: Alert and In No Apparent Distress Head Head Exam: Normal Inspection, Atraumatic and Normocephalic Eyes Eye exam: Normal Appearance, PERRL and EOMI Pupils: Regular, Round: Bilateral Sclera/Conjunctival: Normal Inspection: Bilateral Posterior Chamber: Deferred: Bilateral ENT ENT Exam: Normal Exam and Normal Oropharynx Neck Neck Exam: Normal Inspection and Trachea Midline Chest Chest Inspection: Normal Inspection and Tenderness Respiratory Respiratory Exam: Normal Lung Sounds Bilat Respiratory Exam: Bilateral: Clear to Auscultation Cardiovascular Cardiovascular Exam: Regular Rate and Normal Rhythm Abdominal Exam Abdominal Exam: Normal Bowel Sounds and Soft Extremeties Extremities Exam: Normal Inspection Back Back Exam: Normal Inspection Neurologic Neurological Exam: Alert, Oriented X3 and CN II-XII Intact Cranial Nerve Exam: EOM Function (II, III, IV, ): Normal Psychiatric Psychiatric Exam: Normal Affect, Normal Mood and Depressed Skin Skin Exam: Warm, Dry and Intact COURSE Treatment Treatment: NS 1.5L. Reevaluation 1st: Improved ROR Labs Reviewed Laboratory Results Reviewed?: Yes Result Diagrams: 05/25/18 16:05 05/25/18 16:05 Laboratory: WBC 5.2 X10^3/uL (3.6-10.0) 05/25/18 16:05 RBC 4.14 X10^6/uL (3.5-5.4) 05/25/18 16:05 Hgb 10.9 g/dL (12.0-16.0) L 05/25/18 16:05 Hct 34.6 % (36.0-47.0) L 05/25/18 16:05 MCV 83.6 fL (80.0-100.0) 05/25/18 16:05 MCH 26.3 pg (27.0-34.0) L 05/25/18 16:05 MCHC 31.5 g/dL (33.0-35.0) L 05/25/18 16:05 RDW 16.3 % (11.6-16.5) 05/25/18 16:05 Plt Count 211 X10^3/uL (150.0-450.0) 05/25/18 16:05 Plt Count Comment Adequate (ADEQUATE) 05/25/18 16:05 MPV 8.1 fL (7.4-11.0) 05/25/18 16:05 Neut % (Auto) 48.8 % (42.0-75.0) 05/25/18 16:05 Lymph % (Auto) 42.0 % (21.0-51.0) 05/25/18 16:05 Crisp % (Auto) 7.1 % (0.0-13.0) 05/25/18 16:05 Eos % (Auto) 1.3 % (0.9-2.9) 05/25/18 16:05 Baso % (Auto) 0.8 % (0.2-1.0) 05/25/18 16:05 Neut # (Auto) 2.5 x10^3/uL (2.2-4.8) 05/25/18 16:05 Lymph # (Auto) 2.2 X10^3/uL (1.3-2.9) 05/25/18 16:05 Crisp # (Auto) 0.4 x10^3/uL (0.3-0.8) 05/25/18 16:05 Eos # (Auto) 0.1 x10^3/uL (0.0-0.2) 05/25/18 16:05 Baso # (Auto) 0.0 X10^3/uL (0.0-0.1) 05/25/18 16:05 Absolute Nucleated RBC 0.1 /100WBC 05/25/18 16:05 Total Counted 100 05/25/18 16:05 Neutrophils % (Manual) 65 % (39-76) 05/25/18 16:05 Lymphocytes % (Manual) 30 % (13-43) 05/25/18 16:05 Monocytes % (Manual) 5 % (4-9) 05/25/18 16:05 Plt Morphology Comment Normal (NORMAL) 05/25/18 16:05 RBC Morphology Normal (NORMAL) 05/25/18 16:05 Sodium 139 mmol/L (136-145) 05/25/18 16:05 Corrected Sodium 140 mmol/L (136-145) 05/25/18 16:05 Potassium 4.1 mmol/L (3.5-5.1) 05/25/18 16:05 Chloride 104 mmol/L (98-107) 05/25/18 16:05 Carbon Dioxide 24.9 mmol/L (21-32) 05/25/18 16:05 BUN 52 mg/dL (7-18) H 05/25/18 16:05 Creatinine 2.39 mg/dL (0.55-1.02) H 05/25/18 16:05 Est GFR (MDRD) Af Amer 26 (>60) L 05/25/18 16:05 Est GFR (MDRD) Non-Af 22 (>60) L 05/25/18 16:05 Glucose 161 mg/dL (65-99) H 05/25/18 16:05 POC Glucose (mg/dL) 142 mg/dL (65-99) H 05/25/18 15:09 Calcium 8.8 mg/dL (8.5-10.1) 05/25/18 16:05 Corrected Calcium 9.4 mg/dL (8.5-10.1) 05/25/18 16:05 Total Bilirubin 0.20 mg/dL (0.2-1.0) 05/25/18 16:05 AST 12 Units/L (15-37) L 05/25/18 16:05 ALT 14 Units/L (12-78) 05/25/18 16:05 Alkaline Phosphatase 63 Units/L (46-116) 05/25/18 16:05 Total Protein 7.7 g/dL (6.4-8.2) 05/25/18 16:05 Albumin 3.3 g/dL (3.4-5.0) L 05/25/18 16:05 Globulin 4.4 g/dL (2.5-4.5) 05/25/18 16:05 Albumin/Globulin Ratio 0.8 Ratio (1.1-2.1) L 05/25/18 16:05 Specimen Type Catherized urine 05/25/18 18: Urine Color Yellow (YELLOW) 05/25/18: Urine Appearance Hazy (CLEAR) 05/25/18 18: Urine pH 5.0 (5.0 - 8.0) 05/25/18: Ur Specific [place] 1.020 (1.000-1.030) 05/25/18: Urine Protein 2+ (NEGATIVE) 05/25/18 18: Urine Glucose (UA) Negative (NEGATIVE) 05/25/18 18: Urine Ketones Negative (NEGATIVE) 05/25/18: Urine Occult Blood 1+ (NEGATIVE) 05/25/18: Urine Nitrite Negative (NEGATIVE) 05/25/18 18: Urine Bilirubin Negative (NEGATIVE) 05/25/18 18: Urine Urobilinogen Normal (NORMAL) 05/25/18 18: Ur Leukocyte Esterase Negative (NEGATIVE) 05/25/18: Urine RBC 0-2 /HPF (NONE SEEN) 05/25/18 18: Urine WBC None seen /HPF (NONE SEEN) 05/25/18 18:23 Ur Squamous Epith Cells Negative /HPF (NEGATIVE) 05/25/18 18: Amorphous Sediment Trace /HPF (NEGATIVE) 05/25/18 18: Urine Bacteria Negative /HPF (NEGATIVE) 05/25/18 18:23 Ur Culture Indicated? No/not indicated 05/25/18 18:23 Diagnosis Discharge Problem: Non-specific low back pain, Prerenal azotemia ADDITIONAL NOTES Additional Notes Additional Notes: Patient admitted to hospital
[2018-05-25] MEDS ORDERED: LEVAQUIN PREMIX IV 750 MG 750 MG/150 ML BAG IV ONE (19:43)
[2018-05-25] MEDS: NS 1000 ML 1,000 ML IV SCH (19:57)
[2018-05-25] MEDS ORDERED: ROBITUSSIN DM PO PRN (20:03)
[2018-05-25] MEDS ORDERED: ZOFRAN TAB 4 MG SL PRN ×2 (20:03→20:13)
[2018-05-25] MEDS ORDERED: RESTORIL CAP 15 MG PO PRN (20:03)
[2018-05-25] MEDS ORDERED: MAALOX or MYLANTA PO PRN (20:03)
[2018-05-25] MEDS ORDERED: TYLENOL SUPP 650 MG PR PRN (20:03)
[2018-05-25] MEDS ORDERED: PHENERGAN INJ 25 MG IM PRN (20:03)
--- NOTE | 2018-05-25 20:45 | RAD ---
History: Status post fall Exam: Portable chest Comparison: 10/31/2017 Technique: Portable AP chest was obtained Findings: The heart is mildly enlarged but unchanged. The pulmonary vessels are normal. No consolidation or effusion is seen. The bones are intact. IMPRESSION: Stable chest with no acute abnormality seen. Reported By:
[2018-05-25] MEDS ORDERED: NORCO 5/325 MG TAB PO PRN (21:03)
[2018-05-25] MEDS: ZANTAC PO SCH (22:00)
[2018-05-26] MEDS: COREG TAB 25 MG PO SCH ×3 (01:06→21:07)
[2018-05-26] MEDS: NS 1000 ML 1,000 ML IV SCH ×5 (04:48→22:45)
[2018-05-26 05:10] LABS: BASOPHILS # (AUTO) 0.1 X10^3/uL (0.0-0.1); BASOPHILS % (AUTO) 1.4 % (0.2-1.0); EOSINOPHILS # (AUTO) 0.1 x10^3/uL (0.0-0.2); EOSINOPHILS % (AUTO) 1.9 % (0.9-2.9); HEMATOCRIT 32.4 % (36.0-47.0); HEMOGLOBIN 10.2 g/dL (12.0-16.0); LYMPHOCYTES # (AUTO) 1.2 X10^3/uL (1.3-2.9); LYMPHOCYTES % (AUTO) 22.4 % (21.0-51.0); MEAN CORPUSCULAR HEMOGLOBIN 26.4 pg (27.0-34.0); MEAN CORPUSCULAR HGB CONC 31.4 g/dL (33.0-35.0); MEAN PLATELET VOLUME 8.1 fL (7.4-11.0); MONOCYTES # (AUTO) 0.4 x10^3/uL (0.3-0.8); MONOCYTES % (AUTO) 7.4 % (0.0-13.0); NEUTROPHILS # (AUTO) 3.6 x10^3/uL (2.2-4.8); NEUTROPHILS % (AUTO) 66.9 % (42.0-75.0); PLATELET COUNT 212 X10^3/uL (150.0-450.0); RED BLOOD COUNT 3.86 X10^6/uL (3.5-5.4); RED CELL DISTRIBUTION WIDTH 16.3 % (11.6-16.5); WHITE BLOOD COUNT 5.4 X10^3/uL (3.6-10.0)
[2018-05-26 05:31] LABS: ALANINE AMINOTRANSFERASE 14 Units/L (12-78); ALBUMIN 3.1 g/dL (3.4-5.0); ALKALINE PHOSPHATASE 57 Units/L (46-116); ASPARTATE AMINO TRANSFERASE 13 Units/L (15-37); BLOOD UREA NITROGEN 46 mg/dL (7-18); CALCIUM 8.5 mg/dL (8.5-10.1); CARBON DIOXIDE 26.9 mmol/L (21-32); CHLORIDE 105 mmol/L (98-107); COR CA(FOR HYPOALB) 9.2 mg/dL (8.5-10.1); CREATINE KINASE 186 Units/L (26-192); CREATINE KINASE MB 1.9 ng/mL (0-4.0); CREATININE 2.19 mg/dL (0.55-1.02); SODIUM 141 mmol/L (136-145); TOTAL PROTEIN 7.2 g/dL (6.4-8.2); TROPONIN I < 0.02 ng/mL (0-1.5); eGFR NON BLACK RACES 24 (>60)
[2018-05-26] MEDS ORDERED: LANTUS SC SCH ×2 (09:00→21:00)
[2018-05-26] MEDS ORDERED: LEVAQUIN PREMIX IV 750 MG 750 MG/150 ML BAG IV SCH (09:00)
[2018-05-26] MEDS ORDERED: PREVNAR 13 IM ONE (09:30)
[2018-05-26] MEDS ORDERED: FLUVIRIN IM ONE (09:30)
[2018-05-26] MEDS: NORVASC TAB 10 MG PO SCH (09:54)
[2018-05-26] MEDS: MOBIC TAB 15 MG PO SCH (09:54)
[2018-05-26] MEDS: ZESTRIL TAB 40 MG PO SCH (09:54)
[2018-05-26] MEDS: ZANTAC PO SCH (09:54)
[2018-05-26] MEDS ORDERED: HumuLIN R SUBCUT PRN (10:44)
[2018-05-26] MEDS ORDERED: NS 1000 ML 1,000 ML IV ONE (11:18)
[2018-05-26 14:12] LABS: CALCIUM 8.6 mg/dL (8.5-10.1); CREATININE 2.16 mg/dL (0.55-1.02)
[2018-05-26] MEDS ORDERED: SNACK - Diabetic Appropriate PO SCH ×2 (20:00)
[2018-05-27] MEDS: NS 1000 ML 1,000 ML IV SCH (05:00)
[2018-05-27 06:21] LABS: BASOPHILS % (AUTO) 0.9 % (0.2-1.0); EOSINOPHILS # (AUTO) 0.1 x10^3/uL (0.0-0.2); HEMATOCRIT 28.4 % (36.0-47.0); HEMOGLOBIN 9.3 g/dL (12.0-16.0); LYMPHOCYTES # (AUTO) 1.6 X10^3/uL (1.3-2.9); LYMPHOCYTES % (AUTO) 32.7 % (21.0-51.0); MEAN CORPUSCULAR HEMOGLOBIN 26.6 pg (27.0-34.0); MEAN CORPUSCULAR HGB CONC 32.6 g/dL (33.0-35.0); MEAN CORPUSCULAR VOLUME 81.7 fL (80.0-100.0); MEAN PLATELET VOLUME 8.3 fL (7.4-11.0); MONOCYTES # (AUTO) 0.3 x10^3/uL (0.3-0.8); NEUTROPHILS # (AUTO) 2.7 x10^3/uL (2.2-4.8); NEUTROPHILS % (AUTO) 57.4 % (42.0-75.0); PLATELET COUNT 168 X10^3/uL (150.0-450.0); RED BLOOD COUNT 3.48 X10^6/uL (3.5-5.4); RED CELL DISTRIBUTION WIDTH 16.1 % (11.6-16.5); WHITE BLOOD COUNT 4.7 X10^3/uL (3.6-10.0)
[2018-05-27 06:40] LABS: CARBON DIOXIDE 24.6 mmol/L (21-32); COR CA(FOR HYPOALB) 9.8 mg/dL (8.5-10.1); CREATININE 1.92 mg/dL (0.55-1.02); TOTAL PROTEIN 6.8 g/dL (6.4-8.2)
[2018-05-27 07:15] LABS: PLATELET MORPHOLOGY COMMENT NORMAL (NORMAL)
[2018-05-27] MEDS ORDERED: ZANTAC PO SCH (09:00)
[2018-05-27] MEDS: ZESTRIL TAB 40 MG PO SCH (09:16)
[2018-05-27] MEDS: MOBIC TAB 15 MG PO SCH (09:17)
[2018-05-27] MEDS: COREG TAB 25 MG PO SCH (09:17)
[2018-05-27] MEDS: NORVASC TAB 10 MG PO SCH (09:18)
[2018-05-27 12:28] VITALS: BP 134/68
--- NOTE | 2018-06-13 23:03 | DR.H&P ---
H&P - History & Physical for Day of: H&P Date: 05/25/18 - Chief Complaint Chief Complaint: WEAKNESS, SOB, FALLS, BACK PAIN - History of Present Illness History of Present Illness: IS A 67 YEAR OLD PATIENT OF WHO PRESENTED TO THE EMERGENCY ROOM WITH COMPLAINTS OF FALLING AT HOME. SHE CALLED EMS FOR ASSISTANCE WHEN SHE FELL. EMS REPORTED THAT SHE WAS UNABLE TO STAND. SHE WAS REPORTEDLY RELEASED FROM [facility] ONE DAY PRIOR. SHE WAS IN REHAB FOR THERAPY DUE TO CVA. ON ARRIVAL, SHE COMPLAINED OF SHORTNESS OF BREATH, WEAKNESS, AND LOWER BACK PAIN. VITALS WERE 99.0-70-20-100%NC-138/89. LABS WERE OBTAINED. ABNORMAL LAB VALUES INCLUDED THE FOLLOWING: HGB 10.9, HCT 34.6, BUN 52, CREATININE 2.39, GLUCOSE 161, AST 12, ALBUMIN 3.3. URINALYSIS UNREMARKABLE. A CHEST XRAY WAS OBTAINED AND REVEALED: Stable chest with no acute abnormality seen. SHE WAS GIVEN A NORMAL SALINE BOLUS IN THE ER AND THEN STARTED ON NORMAL SALINE AT 150ML/HR. SHE WAS ADMITTED FOR FURTHER EVALUATION AND TREATMENT OF COPD EXACERBATION, DEHYDRATION, AND FREQUENT FALLS. WE PLANNED TO FOLLOW UP WITH AM LABS AND CONTINUE TO MONITOR. - Past Medical History Past Medical History: Coronary Artery Disease, Hypertension, Diabetes, CVA, Arthritis, CHF - Past Surgical History Surgical History: - Family History Family Medical History: Hypertension - Social History Does patient currently use any type of tobacco product: No Have you used tobacco products in the last 12 months: No Type of Tobacco Use: None Does any household member use tobacco: No Alcohol Use: None Drug Use: None - Medications Home Medications: No Known Drug Allergies Allergy (Verified 05/25/18 12:55) CONTINUE taking the following medications hydroxyzine HCl 25 mg PO HS 05/25/18 [History] - Review of Systems Constitutional: Weakness. denies: Fever, Chills Eyes: No Symptoms Reported ENT: No Symptoms Reported Respiratory: Cough, Shortness of Breath Cardiovascular: No Symptoms Reported Gastrointestinal: No Symptoms Reported Genitourinary: No Symptoms Reported Musculoskeletal: Back Pain Skin: No Symptoms Reported Neurological: Weakness - Physical Exam Vital Signs: Temperature 98.1 F Pulse Rate [Left Brachial] 65 Pulse Rate [Right Brachial] 58 Pulse Rate 70 Respiratory Rate 18 Blood Pressure [Left Arm] 165/74 Blood Pressure [Right Arm] 134/68 Blood Pressure 138/89 O2 Sat by Pulse Oximetry 96 Oriented: Normal Eyes: Normal Ear: Normal Nose: Normal Throat: Normal Respiratory: Diminished Throughout Cardiovascular: Normal. negative: S3, S4, Murmur : Normal Auscultation: Bowel Sounds: Normal Palpation: Normal Tenderness: Normal Skin: Normal Musculoskeletal: Back:Lumbar Psychiatric: Normal Mood Description: Calm Affect: Normal Speech Pattern: Clear - Assessment/Plan (1) Dehydration Status: Acute Plan: ADMIT, NORMAL SALINE AT 150ML/HR, CONTINUE TO MONITOR (2) COPD exacerbation Status: Acute Plan: LEVAQUIN IV, RESPIRATORY TX, SUPPLEMENTAL OXYGEN, CONTINUE TO MONITOR (3) Generalized weakness Status: Acute (4) Non-specific low back pain Status: Acute (5) Prerenal azotemia Status: Acute Plan: NORMAL SALINE AT 150ML/HR, CONTINUE TO MONITOR - Allergies Allergies/Adverse Reactions: Allergies Allergy/AdvReac Type Severity Reaction Status Date / Time No Known Drug Allergies Allergy Verified 05/25/18 12:55
--- NOTE | 2018-06-13 23:18 | PCM.PROG ---
Progress Note - Progress Note for Day of Date of Exam: 05/26/18 - Subjective Subjective: WAS ADMITTED FOR FURTHER EVALUATION AND TREATMENT OF COPD EXACERBATION, DEHYDRATION, GENERALIZED WEAKNESS, AND FREQUENT FALLS. TODAY, SHE IS ALERT AND ORIENTED, LYING IN BED ON MORNING ROUNDS. SHE CONTINUES WITH COMPLAINTS OF GENERALIZED WEAKNESS AND SHORTNESS OF BREATH. STAFF REPORTS THAT SHE HAS BEEN OUT OF BED AND AMBULATED TO THE BATHROOM WITH ASSISTANCE. ON EXAMINATION, HEART IS REGULAR IN RATE AND RHYTHM. BILATERAL LUNGS ARE NOTED WITH DIMINISHED LUNG SOUNDS THROUGHOUT. ABDOMEN IS ROUND, SOFT, AND NON-TENDER WITH NORMAL BOWEL SOUNDS NOTED IN ALL QUADRANTS. SHE IS NOTED WITH GENERALIZED EDEMA. HER VITALS THIS MORNING ARE 97.9-64-20-100%-119/58. LABS WERE OBTAINED. ABNORMAL LAB VALUES INCLUDE THE FOLLOWING: BUN 46, CREATININE 2.19, GLUCOSE 108, AST 13, ALBUMIN 3.1. TODAY, WE WILL CONTINUE WITH IV FLUIDS, IV ANTIBIOTICS, AND CURRENT PLAN OF CARE. WE WILL HAVE PHYSICAL THERAPY CONSULT WITH PATIENT TODAY. OTHERWISE, WE PLAN TO FOLLOW UP WITH AM LABS AND CONTINUE TO MONITOR. - Past Medical Family Social History Past Med/Fam/Surg Hx: No changes since H&P Allergies: Allergies No Known Drug Allergies Allergy (Verified 05/25/18 12:55) - Review of Systems ROS: No change since H&P - Vital Signs and I&O's Vital Signs: Temperature 98.1 F Pulse Rate [Left Brachial] 65 Pulse Rate [Right Brachial] 58 Pulse Rate 70 Respiratory Rate 18 Blood Pressure [Left Arm] 165/74 Blood Pressure [Right Arm] 134/68 Blood Pressure 138/89 O2 Sat by Pulse Oximetry 96 - Physical Exam Oriented: Normal Eyes: Normal Ear: Normal Nose: Normal Throat: Normal Respiratory: Diminished Cardiovascular: Normal. negative: S3, S4, Murmur : Normal Auscultation: Bowel Sounds: Normal Palpation: Normal Tenderness: Normal Skin: Normal Musculoskeletal: Back:Lumbar Psychiatric: Normal Mood Description: Calm Affect: Normal Speech Pattern: Clear - Laboratory and Diagnostics Result Diagrams: 05/27/18 05:20 05/27/18 05:20 Labs: Laboratory WBC 4.7 X10^3/uL (3.6-10.0) 05/27/18 05:20 RBC 3.48 X10^6/uL (3.5-5.4) L 05/27/18 05:20 Hgb 9.3 g/dL (12.0-16.0) L 05/27/18 05:20 Hct 28.4 % (36.0-47.0) L 05/27/18 05:20 MCV 81.7 fL (80.0-100.0) 05/27/18 05:20 MCH 26.6 pg (27.0-34.0) L 05/27/18 05:20 MCHC 32.6 g/dL (33.0-35.0) L 05/27/18 05:20 RDW 16.1 % (11.6-16.5) 05/27/18 05:20 Plt Count 168 X10^3/uL (150.0-450.0) 05/27/18 05:20 Plt Count Comment Adequate (ADEQUATE) 05/27/18 05:20 MPV 8.3 fL (7.4-11.0) 05/27/18 05:20 Neut % (Auto) 57.4 % (42.0-75.0) 05/27/18 05:20 Lymph % (Auto) 32.7 % (21.0-51.0) 05/27/18 05:20 [place] % (Auto) 7.0 % (0.0-13.0) 05/27/18 05:20 Eos % (Auto) 2.0 % (0.9-2.9) 05/27/18 05:20 Baso % (Auto) 0.9 % (0.2-1.0) 05/27/18 05:20 Neut # (Auto) 2.7 x10^3/uL (2.2-4.8) 05/27/18 05:20 Lymph # (Auto) 1.6 X10^3/uL (1.3-2.9) 05/27/18 05:20 [place] # (Auto) 0.3 x10^3/uL (0.3-0.8) 05/27/18 05:20 Eos # (Auto) 0.1 x10^3/uL (0.0-0.2) 05/27/18 05:20 Baso # (Auto) 0.0 X10^3/uL (0.0-0.1) 05/27/18 05:20 Absolute Nucleated RBC 0.0 /100WBC 05/27/18 05:20 Total Counted 100 05/27/18 05:20 Neutrophils % (Manual) 58 % (39-76) 05/27/18 05:20 Lymphocytes % (Manual) 34 % (13-43) 05/27/18 05:20 Monocytes % (Manual) 6 % (4-9) 05/27/18 05:20 Eosinophils % (Manual) 2 % (0-6) 05/27/18 05:20 Plt Morphology Comment Normal (NORMAL) 05/27/18 05:20 RBC Morphology Normal (NORMAL) 05/27/18 05:20 Sodium 142 mmol/L (136-145) 05/27/18 05:20 Corrected Sodium 143 mmol/L (136-145) 05/27/18 05:20 Potassium 3.7 mmol/L (3.5-5.1) 05/27/18 05:20 Chloride 108 mmol/L (98-107) H 05/27/18 05:20 Carbon Dioxide 24.6 mmol/L (21-32) 05/27/18 05:20 BUN 40 mg/dL (7-18) H 05/27/18 05:20 Creatinine 1.92 mg/dL (0.55-1.02) H 05/27/18 05:20 Est GFR (MDRD) Af Amer 34 (>60) L 05/27/18 05:20 Est GFR (MDRD) Non-Af 28 (>60) L 05/27/18 05:20 Glucose 123 mg/dL (65-99) H 05/27/18 05:20 POC Glucose (mg/dL) 124 mg/dL (65-99) H 05/27/18 05:58 Calcium 9.0 mg/dL (8.5-10.1) 05/27/18 05:20 Corrected Calcium 9.8 mg/dL (8.5-10.1) 05/27/18 05:20 Total Bilirubin 0.20 mg/dL (0.2-1.0) 05/27/18 05:20 AST 15 Units/L (15-37) 05/27/18 05:20 ALT 15 Units/L (12-78) 05/27/18 05:20 Alkaline Phosphatase 54 Units/L (46-116) 05/27/18 05:20 Creatine Kinase 186 Units/L (26-192) 05/26/18 04:40 CK-MB (CK-2) 1.9 ng/mL (0-4.0) 05/26/18 04:40 CK/CKMB % Calc 1.0 % (<4) 05/26/18 04:40 Troponin I < 0.02 ng/mL (0-1.5) 05/26/18 04:40 Total Protein 6.8 g/dL (6.4-8.2) 05/27/18 05:20 Albumin 3.0 g/dL (3.4-5.0) L 05/27/18 05:20 Globulin 3.8 g/dL (2.5-4.5) 05/27/18 05:20 Albumin/Globulin Ratio 0.8 Ratio (1.1-2.1) L 05/27/18 05:20 Specimen Type Catherized urine 05/25/18 18: Urine Color Yellow (YELLOW) 05/25/18: Urine Appearance Hazy (CLEAR) 05/25/18: Urine pH 5.0 (5.0 - 8.0) 05/25/18: Ur Specific [place] 1.020 (1.000-1.030) 05/25/18: Urine Protein 2+ (NEGATIVE) 05/25/18 Urine Glucose (UA) Negative (NEGATIVE) 05/25/18: Urine Ketones Negative (NEGATIVE) 05/25/18 18: Urine Occult Blood 1+ (NEGATIVE) 05/25/18: Urine Nitrite Negative (NEGATIVE) 05/25/18: Urine Bilirubin Negative (NEGATIVE) 05/25/18 18: Urine Urobilinogen Normal (NORMAL) 05/25/18: Ur Leukocyte Esterase Negative (NEGATIVE) 05/25/18: Urine RBC 0-2 /HPF (NONE SEEN) 05/25/18: Urine WBC None seen /HPF (NONE SEEN) 05/25/18: Ur Squamous Epith Cells Negative /HPF (NEGATIVE) 05/25/18 18: Amorphous Sediment Trace /HPF (NEGATIVE) 05/25/18 18: Urine Bacteria Negative /HPF (NEGATIVE) 05/25/18 18: Ur Culture Indicated? No/not indicated 05/25/18 18:23 - Plan (1) Dehydration Status: Acute Plan: ADMIT, NORMAL SALINE AT 150ML/HR, CONTINUE TO MONITOR (2) COPD exacerbation Status: Acute Plan: LEVAQUIN IV, RESPIRATORY TX, SUPPLEMENTAL OXYGEN, CONTINUE TO MONITOR (3) Generalized weakness Status: Acute (4) Non-specific low back pain Status: Acute (5) Prerenal azotemia Status: Acute Plan: NORMAL SALINE AT 150ML/HR, CONTINUE TO MONITOR
--- NOTE | 2018-06-15 22:50 | DR.CARTERD ---
- Discharge Summary for: Discharge Summary for Date of:: 05/27/18 - Admission Date Date of Admission: 05/25/18 - Admission Diagnoses Admission Diagnosis: (1) COPD exacerbation (2) Dehydration (3) Generalized weakness (4) Non-specific low back pain (5) Prerenal azotemia - Discharge Date Discharge Date: 05/27/18 - Discharge Diagnoses Discharge Diagnosis: (1) COPD exacerbation (2) Dehydration (3) Generalized weakness (4) Non-specific low back pain (5) Prerenal azotemia - Hospital Course Hospital Course: DAY ONE, IS A 67 YEAR OLD PATIENT OF WHO PRESENTED TO THE EMERGENCY ROOM WITH COMPLAINTS OF FALLING AT HOME. SHE CALLED EMS FOR ASSISTANCE WHEN SHE FELL. EMS REPORTED THAT SHE WAS UNABLE TO STAND. SHE WAS REPORTEDLY RELEASED FROM [facility] ONE DAY PRIOR. SHE WAS IN REHAB FOR THERAPY DUE TO CVA. ON ARRIVAL, SHE COMPLAINED OF SHORTNESS OF BREATH, WEAKNESS, AND LOWER BACK PAIN. VITALS WERE 99.0-70-20-100%NC-138/89. LABS WERE OBTAINED. ABNORMAL LAB VALUES INCLUDED THE FOLLOWING: HGB 10.9, HCT 34.6, BUN 52, CREATININE 2.39, GLUCOSE 161, AST 12, ALBUMIN 3.3. URINALYSIS UNREMARKABLE. A CHEST XRAY WAS OBTAINED AND REVEALED: Stable chest with no acute abnormality seen. SHE WAS GIVEN A NORMAL SALINE BOLUS IN THE ER AND THEN STARTED ON NORMAL SALINE AT 150ML/HR. SHE WAS ADMITTED FOR FURTHER EVALUATION AND TREATMENT OF COPD EXACERBATION, DEHYDRATION, AND FREQUENT FALLS. WE FOLLOWED UP WITH AM LABS AND CONTINUED TO MONITOR. DAY TWO, SHE WAS ALERT AND ORIENTED, LYING IN BED ON MORNING ROUNDS. SHE CONTINUED WITH COMPLAINTS OF GENERALIZED WEAKNESS AND SHORTNESS OF BREATH. STAFF REPORTED THAT SHE HAD BEEN OUT OF BED AND AMBULATED TO THE BATHROOM WITH ASSISTANCE. ON EXAMINATION, HEART WAS REGULAR IN RATE AND RHYTHM. BILATERAL LUNGS WERE NOTED WITH DIMINISHED LUNG SOUNDS THROUGHOUT. ABDOMEN WAS ROUND, SOFT, AND NON-TENDER WITH NORMAL BOWEL SOUNDS NOTED IN ALL QUADRANTS. SHE WAS NOTED WITH GENERALIZED EDEMA. HER VITALS THIS MORNING ARE 97.9-64-20-100%-119/58. LABS WERE OBTAINED. ABNORMAL LAB VALUES INCLUDED THE FOLLOWING: BUN 46, CREATININE 2.19, GLUCOSE 108, AST 13, ALBUMIN 3.1. WE CONTINUED WITH IV FLUIDS, IV ANTIBIOTICS, AND CURRENT PLAN OF CARE.WE HAD PHYSICAL THERAPY CONSULT WITH PATIENT TODAY. WE FOLLOWED UP WITH AM LABS AND CONTINUED TO MONITOR. DAY THREE, PATIENT ALERT AND ORIENTED ON MORNING ROUNDS. NO COMPLAINTS VOICED WERE VOICED THIS AM. NO SIGNS AND SYMPTOMS OF ACUTE DISTRESS NOTED. LUNG SOUNDS NOTED TO BE CLEAR ON AUSCULTATION. LABS WERE WITHIN NORMAL RANGE FOR PATIENT. VITALS WERE STABLE. WE PLANNED FOR DISCHARGE. INSTRUCTIONS FOR MEDICATIONS AND FOLLOW UP WERE DISCUSSED WITH PATIENT AND FAMILY, BOTH VOICED UNDERSTANDING. PATIENT DISCHARGED HOME IN STABLE CONDITION WITH FAMILY. - Discharge Medications Discharge Medications: Home Medication List hydroxyzine HCl 25 mg PO HS 05/25/18 [History] Prescriptions: Ambulatory Orders lisinopril 40 mg PO DAILY #30 tab 05/26/17 ranitidine HCl 300 mg PO BID #60 tab 05/26/17 amlodipine 10 mg PO DAILY 11/01/17 carvedilol 12.5 mg PO BID 11/01/17 insulin glargine [Lantus U-100 Insulin] 50 unit SQ DAILY 11/01/17 meloxicam 15 mg PO DAILY 11/01/17 - Discharge Disposition Discharge Disposition: PATIENT TO FOLLOW UP WITH PCP DR. Jose DESIR IN ONE WEEK.
== END 2018-05-27 12:50 | disposition home or self-care (01) ==
LOC: ER 12:51 → OBS 12:51 → MED/SURG 20:38
PROVIDERS: ADMIT Internal Medicine; ATTEND Internal Medicine
DX: Z86.73 Personal history of transient ischemic attack (TIA), and cerebral infarction without residual deficits; E86.0 Dehydration; R94.4 Abnormal results of kidney function studies; J44.1 Chronic obstructive pulmonary disease with (acute) exacerbation; Y92.89 Other specified places as the place of occurrence of the external cause; Z23 Encounter for immunization; R29.6 Repeated falls; I25.10 Atherosclerotic heart disease of native coronary artery without angina pectoris; R53.1 Weakness; I10 Essential (primary) hypertension; E87.6 Hypokalemia; R06.02 Shortness of breath; M54.5 Low back pain; R79.89 Other specified abnormal findings of blood chemistry; E11.65 Type 2 diabetes mellitus with hyperglycemia; R26.89 Other abnormalities of gait and mobility; W18.39XA Other fall on same level, initial encounter; Z79.899 Other long term (current) drug therapy
CPT/HCPCS: 36415; 51702; 71010; 71045; 80048; 80053; 81001; 82550; 82553; 84484; 85025; 90686; 94760; 96367; 96372; 96374; 96375; 97162; 97166; 99282; 99284; A4222; 90670; G0378; J1956; J7030

== ENCOUNTER 2018-07-01 02:29 | Inpatient (IN) ==
[2018-07-01 02:45] VITALS: BMI 63.5
[2018-07-01] MEDS ORDERED: NORMODYNE INJ 100 MG VIAL IVP ONE ×2 (02:45→03:35)
[2018-07-01] MEDS ORDERED: NORMODYNE INJ 100 MG VIAL ONE ×2 (02:46→04:27)
[2018-07-01] MEDS ORDERED: ZOFRAN INJ 4 MG VIAL ONE (03:04)
[2018-07-01] MEDS ORDERED: ZOFRAN INJ 4 MG VIAL IVP ONE ×2 (03:04→06:36)
--- NOTE | 2018-07-01 03:21 | DR.HTN ---
HPI Time Seen Time Seen by Provider: 07/01/18 02:34 Primary Care Physician Primary Care Physician: KARLEE HPI Comment HPI Comment: HERE VIA EMS. PATIENT WAS CONFUSE MOST OF THE DAY. SHE IS WEAK AND SLEEPY. NO FEVER. PATIENT SAID SHE IS NOT FEELING WELL. PATIENTS FAMILY SAID SHE WAS COMPLAINING OF DIZZINESS. Complaints Chief Complaint Doctors Comments: VOMITIAT HOME AND BP ELEVATED. Chief Complaint:: PT INFORMED EMS THAT SHE STARTED HAVING NAUSEA AND VOMITING ABOUT AN HOUR AGO. UPON EMS ARRIVAL PT HBP 220/124. UPON HER ARRIVAL TO ED PT NOTED WITH HBP AND NOTED HAVING VOMITED A VERY SMALL AMOUNT OF GREEN COLORED EMESIS. Self Treatment fo Chief Complaint: NONE Reviewed Nurses Notes Reviewed: Yes Source History Provided: EMS Mode of Arrival Mode of Arrival: EMS Timing Onset of Chief Complaint: 07/01/18 Severity What was the maximum recorded B/P?: 220/124 Severity: Severe Context Circumstances: Spontaneous Onset History of: Hypertension Treatment of HTN Prior to Arrival: Taking meds as prescribed Associated Signs and Symptoms HTN Associated Signs and Symptoms: N/V and Dizziness PMH PMH Past Medical History: Yes Past Medical History: Arthritis, CHF, Coronary Artery Disease, CVA, Diabetes and Hypertension Past Surgical History: Yes Surgical History: Past Surgical History Comment: PERICARDIAL WINDOW Family History History of Family Medical Conditions: Yes Family Medical History: Hypertension Social History Does patient currently use any type of tobacco product: No Have you used tobacco products in the last 12 months: No Type of Tobacco Use: None Does any household member use tobacco: No Alcohol Use: None Do you use any recreational Drugs:: No Lives With: Family Lives Where: Home infectious screening In the last 2 months have you had wt loss of >10#?: NO Have you had fever, night sweats or hemotysis?: No Have you traveled outside the country in the last 6 months?: No ROS Review of Systems Constitutional: Weakness and Fatigue Eyes: No Symptoms Reported ENTM: No Symptoms Reported Respiratoy: Non-Productive Cough, Short of Breath and Wheezing Cardiovascular: Edema Gastrointestinal/Abdominal: Abdominal Pain, Nausea and Vomiting Genitourinary: No Symptoms Reported Neurological: Headache, Weakness and Dizziness Musculoskeletal: Joint Pain and Joint Swelling Integumentary: Change in Color and Dryness Hematologic/Lymphatic: Easy Bleeding and Easy Bruising Endocrine: No Symptoms Reported Psychiatric: No Symptoms Reported All Other Systems: Reviewed and Negative Unable to Obtain Due To: Altered mental status PE Vital Signs Vitals: Temperature 98.7 F Pulse Rate [Apical] 56 Pulse Rate 67 Respiratory Rate 18 Blood Pressure [Left Arm] 175/90 Blood Pressure [Right Arm] 134/68 Blood Pressure 237/105 O2 Sat by Pulse Oximetry 100 General Limitations: Altered Mental Status and Other (SLEEPY.) General Appearance: Alert and In Distress Head Head Exam: Normal Inspection Eyes Eye exam: PERRL; negative Scleral Icterus and Conjunctival Injection Pupils: Regular, Round: Bilateral Sclera/Conjunctival: Normal Inspection: Bilateral ENT ENT Exam: Normal Oropharynx, Normal External Ear Exam and TM's Normal Bilaterally Neck Neck Exam: Trachea Midline; negative Tenderness, Meningismus and Lymphadenopathy Chest Chest Inspection: Normal Inspection and Symmetric Chest Wall Rise Respiratory Respiratory Exam: Normal Lung Sounds Bilat Respiratory Exam: Bilateral: Clear to Auscultation Cardiovascular Cardiovascular Exam: Regular Rate and Normal Rhythm Abdominal Exam Abdominal Exam: Normal Inspection, Normal Bowel Sounds, Soft and Tenderness Abdominal Tenderness: Diffuse and Moderate Extremities Extremities Exam: Normal Inspection Back Back Exam: Normal Inspection and Paraspinal Tenderness Neurologic Speech: Total Aphasia (SLEEPY) Cranial Nerve Exam: Gag reflex (XI): Normal Upper Motor Neuron Exam: Babinski Sign: Normal Psychiatric Psychiatric Exam: Normal Affect and Normal Mood Skin Skin Exam: Dry and Erythema MDM Additional Information Obtained Additional Information Obtained From: Old Records and Family Differential Diagnosis Differential Diagnosis: CHF, Hypertensive urgency, Pulmonary edema and Renal insufficiency Differential Diagnosis Comment: NM, PNEUMONIA, GASTRITIS, CHOLECYSTITIS, GALL STONE, UTI COURSE Treatment Treatment: SEE ORDERS. Consultation Consultation Comments: DISCUSS PATIENT WITH KARLEE MAYER. HE WILL ADMIT PATIENT. Education/Counseling Education/Counseling: Patient and Family Educated On: Diagnosis ROR Labs Reviewed Laboratory Results Reviewed?: Yes Result Diagrams: 07/01/18 03:26 07/01/18 03:26 Laboratory: WBC 7.8 X10^3/uL (3.6-10.0) 07/01/18 03:26 RBC 4.31 X10^6/uL (3.5-5.4) 07/01/18 03:26 Hgb 11.3 g/dL (12.0-16.0) L 07/01/18 03:26 Hct 35.5 % (36.0-47.0) L 07/01/18 03:26 MCV 82.2 fL (80.0-100.0) 07/01/18 03:26 MCH 26.3 pg (27.0-34.0) L 07/01/18 03:26 MCHC 31.9 g/dL (33.0-35.0) L 07/01/18 03:26 RDW 16.3 % (11.6-16.5) 07/01/18 03:26 Plt Count 249 X10^3/uL (150.0-450.0) 07/01/18 03:26 MPV 7.8 fL (7.4-11.0) 07/01/18 03:26 Neut % (Auto) 73.2 % (42.0-75.0) 07/01/18 03:26 Lymph % (Auto) 18.8 % (21.0-51.0) L 07/01/18 03:26 [place] % (Auto) 4.0 % (0.0-13.0) 07/01/18 03:26 Eos % (Auto) 2.8 % (0.9-2.9) 07/01/18 03:26 Baso % (Auto) 1.2 % (0.2-1.0) H 07/01/18 03:26 Neut # (Auto) 5.7 x10^3/uL (2.2-4.8) H 07/01/18 03:26 Lymph # (Auto) 1.5 X10^3/uL (1.3-2.9) 07/01/18 03:26 [place] # (Auto) 0.3 x10^3/uL (0.3-0.8) 07/01/18 03:26 Eos # (Auto) 0.2 x10^3/uL (0.0-0.2) 07/01/18 03:26 Baso # (Auto) 0.1 X10^3/uL (0.0-0.1) 07/01/18 03:26 Absolute Nucleated RBC 0.0 /100WBC 07/01/18 03:26 Sodium 139 mmol/L (136-145) 07/01/18 03:26 Corrected Sodium 141 mmol/L (136-145) 07/01/18 03:26 Potassium 3.5 mmol/L (3.5-5.1) 07/01/18 03:26 Chloride 104 mmol/L (98-107) 07/01/18 03:26 Carbon Dioxide 24.9 mmol/L (21-32) 07/01/18 03:26 BUN 44 mg/dL (7-18) H 07/01/18 03:26 Creatinine 2.11 mg/dL (0.55-1.02) H 07/01/18 03:26 Est GFR (MDRD) Af Amer 30 (>60) L 07/01/18 03:26 Est GFR (MDRD) Non-Af 25 (>60) L 07/01/18 03:26 Glucose 192 mg/dL (65-99) H 07/01/18 03:26 Calcium 9.2 mg/dL (8.5-10.1) 07/01/18 03:26 Corrected Calcium TNP 07/01/18 03:26 Total Bilirubin 0.20 mg/dL (0.2-1.0) 07/01/18 03:26 AST 15 Units/L (15-37) 07/01/18 03:26 ALT 19 Units/L (12-78) 07/01/18 03:26 Alkaline Phosphatase 80 Units/L (46-116) 07/01/18 03:26 Total Protein 8.2 g/dL (6.4-8.2) 07/01/18 03:26 Albumin 3.6 g/dL (3.4-5.0) 07/01/18 03:26 Globulin 4.6 g/dL (2.5-4.5) H 07/01/18 03:26 Albumin/Globulin Ratio 0.8 Ratio (1.1-2.1) L 07/01/18 03:26 EKG [place]: Normal Rhythm: NSR
[2018-07-01 03:36] LABS: BASOPHILS # (AUTO) 0.1 X10^3/uL (0.0-0.1); BASOPHILS % (AUTO) 1.2 % (0.2-1.0); EOSINOPHILS # (AUTO) 0.2 x10^3/uL (0.0-0.2); EOSINOPHILS % (AUTO) 2.8 % (0.9-2.9); HEMATOCRIT 35.5 % (36.0-47.0); HEMOGLOBIN 11.3 g/dL (12.0-16.0); LYMPHOCYTES # (AUTO) 1.5 X10^3/uL (1.3-2.9); LYMPHOCYTES % (AUTO) 18.8 % (21.0-51.0); MEAN CORPUSCULAR HEMOGLOBIN 26.3 pg (27.0-34.0); MEAN CORPUSCULAR HGB CONC 31.9 g/dL (33.0-35.0); MEAN CORPUSCULAR VOLUME 82.2 fL (80.0-100.0); MEAN PLATELET VOLUME 7.8 fL (7.4-11.0); MONOCYTES # (AUTO) 0.3 x10^3/uL (0.3-0.8); NEUTROPHILS # (AUTO) 5.7 x10^3/uL (2.2-4.8); NEUTROPHILS % (AUTO) 73.2 % (42.0-75.0); PLATELET COUNT 249 X10^3/uL (150.0-450.0); RED BLOOD COUNT 4.31 X10^6/uL (3.5-5.4); RED CELL DISTRIBUTION WIDTH 16.3 % (11.6-16.5); WHITE BLOOD COUNT 7.8 X10^3/uL (3.6-10.0)
[2018-07-01 03:47] LABS: ALANINE AMINOTRANSFERASE 19 Units/L (12-78); ALBUMIN 3.6 g/dL (3.4-5.0); ALKALINE PHOSPHATASE 80 Units/L (46-116); ASPARTATE AMINO TRANSFERASE 15 Units/L (15-37); BLOOD UREA NITROGEN 44 mg/dL (7-18); CALCIUM 9.2 mg/dL (8.5-10.1); CARBON DIOXIDE 24.9 mmol/L (21-32); CHLORIDE 104 mmol/L (98-107); COR NA(FOR HYPERGLY) 141 mmol/L (136-145); CREATININE 2.11 mg/dL (0.55-1.02); SODIUM 139 mmol/L (136-145); TOTAL PROTEIN 8.2 g/dL (6.4-8.2); eGFR NON BLACK RACES 25 (>60)
[2018-07-01] MEDS ORDERED: PHENERGAN INJ 25 MG ONE (04:19)
[2018-07-01] MEDS ORDERED: PHENERGAN INJ 25 MG IVP ONE (04:19)
[2018-07-01] MEDS ORDERED: NORMODYNE INJ 20 MG VIAL IVP ONE (04:23)
[2018-07-01] MEDS ORDERED: NS 250 ML IV 250 ML IV ONE (04:27)
[2018-07-01] MEDS: NORMODYNE INJ 100 MG VIAL 250 MG in NS 250 ML IV 200 ML IV PRN ×2 (04:41→09:48)
--- NOTE | 2018-07-01 05:15 | RAD ---
AP chest Indication: Nausea and vomiting with elevated blood pressure Comparison: 05/25/2018 Findings: Heart size is enlarged. Increased interstitial opacities suspicious for mild interstitial edema. No focal airspace consolidation, pleural effusion or pneumothorax. No acute osseous abnormality. Impression: Cardiomegaly with increased interstitial opacities suspicious for cardiomegaly in the setting of CHF. Reported By:
--- NOTE | 2018-07-01 05:18 | CT ---
CT brain without contrast Indication: Elevated blood pressure Comparison: 04/28/18 Technique: Multiple axial images of the brain were obtained from the skull base to the vertex without administration of IV contrast. Findings: Bilateral periventricular and deep white matter hypoattenuation with bilateral lacunar infarcts within the basal ganglia and internal capsules are again noted. Mild generalized cerebral atrophy. No acute intraparenchymal hemorrhage or mass can be identified. No extra-axial fluid collections are seen. No alteration in the attenuation of the brain parenchyma can be identified to suggest acute or subacute ischemic change. The ventricular system is symmetric and nondilated. The extracranial structures are grossly unremarkable. IMPRESSION: 1. No acute intracranial hemorrhage. 2. Stable generalized cerebral atrophy with bilateral basal ganglia and internal capsule lacunar infarcts. Reported By:
--- NOTE | 2018-07-01 05:27 | CT ---
CT abdomen and pelvis without contrast Indication: Nausea and vomiting Comparison: 04/05/2016 Technique: Multiple axial images of the abdomen and pelvis were obtained from the lung bases to the pubic symphysis without the administration of IV contrast. Coronal and sagittal reformatted images were also provided. Findings: Overall sensitivity in detection of solid organ injury, mass or inflammatory change along with vascular injury or mesenteric hematoma is severely limited given lack of IV contrast administration. The lung bases are clear. Given limitations of a noncontrast examination no focal hepatic lesion is identified. The gallbladder contains tiny amount of layering stones/sludge without pericholecystic stranding or fluid. Bile ducts are normal in caliber. The spleen, pancreas and adrenal glands are normal. The right kidney contains nonobstructing stone like within the renal pelvis. The left kidney also suspect represent a tiny nonobstructing stone within the upper pole. No hydronephrosis or ureteral stone identified within either collecting system. Streak artifact significantly limits visualization of the pelvis. The colon is unremarkable. The appendix is not identified. No definite pelvic free fluid. Abdominal aorta is normal in caliber. Review of bone windows demonstrates no acute osseous abnormality. There is a minimal grade 1 anterolisthesis of L4. There is moderate spondylosis at L5-S1. Impression: Suspected tiny stones within the right renal pelvis and left upper pole without evidence of hydronephrosis or ureteral stone. Cholelithiasis and/or gallbladder sludge without CT evidence of acute cholecystitis. Reported By:
[2018-07-01] MEDS ORDERED: ZOFRAN INJ 4 MG VIAL IVP PRN (06:36)
[2018-07-01 07:34] LABS: BILIRUBIN,URINE NEGATIVE (NEGATIVE); BLOOD/HEMOGLOBIN,URINE 3+ (NEGATIVE); GLUCOSE, URINE 2+ (NEGATIVE); KETONES,URINE NEGATIVE (NEGATIVE); LEUKOCYTE ESTERASE ,URINE NEGATIVE (NEGATIVE); NITRITES,URINE NEGATIVE (NEGATIVE); PH,URINE 6.5 (5.0 - 8.0); PROTEIN,URINE 3+ (NEGATIVE); UROBILINOGEN,URINE NORMAL (NORMAL)
[2018-07-01 07:51] LABS: APPEARANCE,URINE CLEAR (CLEAR); BACTERIA,URINE NEGATIVE /HPF (NEGATIVE); COLOR,URINE YELLOW (YELLOW); SQUAMOUS EPITHELIAL CELL,UR MODERATE /HPF (NEGATIVE)
[2018-07-01 07:52] LABS: AMORPHOUS SEDIMENT,UR 1+ /HPF (NEGATIVE)
[2018-07-01] MEDS: LASIX IVP SCH (09:38)
[2018-07-01] MEDS: ROCEPHIN VIAL 1 GRAM IVP SCH (09:38)
[2018-07-01] MEDS: XOPENEX 1.25 MG/3 ML NEBULE NEB SCH ×3 (11:21→17:43)
--- NOTE | 2018-07-01 13:48 | DR.H&P ---
H&P - History & Physical for Day of: H&P Date: 07/01/18 - Chief Complaint Chief Complaint: weakness, dizzy, co n/v - History of Present Illness History of Present Illness: 67 BF ER ADMISSION AFTER PRESENTING HERE VIA EMS. PATIENT FAMILY REPORTS SHE WAS CONFUSED MOST OF THE DAY. SHE IS WEAK AND SLEEPY. NO FEVER. PATIENT SAID SHE IS NOT FEELING WELL. PATIENTS FAMILY SAID SHE WAS COMPLAINING OF DIZZINESS. HAD N/V X1 PRIOR TO ARRIVAL. PT HAS PMH OF COPD, HTN, CVD, OA, DM. PT RECENTLY SUFFERED A STROKE AFFECTING LEFT UPPER AND LOWER MOBILITY. PT ADMITTED TO TREAT HYPERTENSIVE URGENCY, EVALUATE ACUTE ILLNESS, GI COMPLAINTS. - Past Medical History Past Medical History: Coronary Artery Disease, Hypertension, Diabetes, CVA, Arthritis, CHF - Past Surgical History Surgical History: - Family History Family Medical History: Hypertension - Social History Does patient currently use any type of tobacco product: No Have you used tobacco products in the last 12 months: No Type of Tobacco Use: None Does any household member use tobacco: No Alcohol Use: None Drug Use: None - Medications Home Medications: No Known Drug Allergies Allergy (Verified 07/01/18 02:37) - Review of Systems Constitutional: Weakness Eyes: No Symptoms Reported ENT: No Symptoms Reported Respiratory: Shortness of Breath Cardiovascular: Edema Gastrointestinal: Nausea, Vomiting Musculoskeletal: Back Pain, Leg Pain Skin: No Symptoms Reported Neurological: Weakness - Physical Exam Vital Signs: Temperature 97.8 F Pulse Rate [Apical] 56 Pulse Rate 57 Respiratory Rate 14 Blood Pressure [Left Arm] 155/79 Blood Pressure [Right Arm] 134/68 Blood Pressure 158/74 O2 Sat by Pulse Oximetry 89 Oriented: Normal Eyes: Normal Ear: Normal Nose: Normal Throat: Normal Respiratory: RLL Diminished, LLL Diminished Cardiovascular: Normal, Edema : Normal Auscultation: Bowel Sounds: Normal Palpation: Normal Tenderness: Epigastric, Mild Skin: Decreased Turgur Musculoskeletal: Left, Arm, Leg, Back:Thoracic, Back:Lumbar, Motor Deficit, Sensory Deficit Mood Description: Calm Speech Pattern: Appropriate, Delayed - Assessment/Plan (1) Hypertensive urgency Status: Acute Plan: ADMIT ICU, R/O ACUTE CVA. BP MANAGEMENT AND CARDIAC MONITORING. STRICT I & OS, SSI, RESP CONSULT, SUPPLEMENTAL O2. PAIN AND NAUSEA CONTROL. RESUME COREG AND NORVASC PO, CXR ON ADMISSION. REPEAT AM LABS AND CXR. (2) Generalized weakness Status: Acute (3) Nausea & vomiting Status: Acute (4) CHF (congestive heart failure) Status: Acute (5) Hypertension Status: Acute - Allergies Allergies/Adverse Reactions: Allergies Allergy/AdvReac Type Severity Reaction Status Date / Time No Known Drug Allergies Allergy Verified 07/01/18 02:37
[2018-07-01] MEDS: NORVASC TAB 10 MG PO SCH (15:12)
[2018-07-01] MEDS ORDERED: K-RIDER 10 MEQ/NS 100 ML 10 MEQ/100 ML BAG IV PRN (15:59)
[2018-07-01] MEDS ORDERED: POTASSIUM CHL 60 MEQ/NS 0.45% 500 ML IV PRN (15:59)
[2018-07-01] MEDS ORDERED: POTASSIUM CHLORIDE LIQ 20 MEQ UDC PO PRN (15:59)
[2018-07-01] MEDS ORDERED: KLOR-CON PO PRN (15:59)
[2018-07-01] MEDS ORDERED: K-DUR TAB 20 MEQ PO PRN (15:59)
[2018-07-01] MEDS ORDERED: MICRO K EXTEN CAP 10 MEQ PO PRN (15:59)
[2018-07-01] MEDS ORDERED: POTASSIUM CHL 40 MEQ/NS 0.45% 500 ML IV PRN (15:59)
[2018-07-01] MEDS ORDERED: MAGNESIUM SULFATE 1 GRAM/100 mL PREMIX 1 GM/100 ML BAG IV PRN (15:59)
[2018-07-01] MEDS: APRESOLINE TAB 10 MG PO SCH ×2 (16:50→20:24)
[2018-07-01] MEDS: SNACK - Diabetic Appropriate PO SCH (20:05)
[2018-07-01] MEDS ORDERED: COREG TAB 12.5 MG PO SCH (21:00)
[2018-07-01] MEDS ORDERED: COREG TAB 25 MG PO SCH (21:00)
[2018-07-02] MEDS: XOPENEX 1.25 MG/3 ML NEBULE NEB SCH ×5 (00:13→17:04)
[2018-07-02] MEDS ORDERED: TYLENOL 325 MG TAB PO PRN (01:04)
[2018-07-02] MEDS ORDERED: TYLENOL 325 MG TAB PO ONE (01:06)
[2018-07-02 06:06] LABS: BASOPHILS # (AUTO) 0.1 X10^3/uL (0.0-0.1); BASOPHILS % (AUTO) 0.9 % (0.2-1.0); EOSINOPHILS % (AUTO) 0.7 % (0.9-2.9); HEMATOCRIT 38.9 % (36.0-47.0); HEMOGLOBIN 12.5 g/dL (12.0-16.0); LYMPHOCYTES # (AUTO) 1.7 X10^3/uL (1.3-2.9); LYMPHOCYTES % (AUTO) 28.1 % (21.0-51.0); MEAN CORPUSCULAR HGB CONC 32.1 g/dL (33.0-35.0); MEAN PLATELET VOLUME 7.8 fL (7.4-11.0); MONOCYTES # (AUTO) 0.3 x10^3/uL (0.3-0.8); MONOCYTES % (AUTO) 4.3 % (0.0-13.0); NEUTROPHILS # (AUTO) 3.9 x10^3/uL (2.2-4.8); PLATELET COUNT 190 X10^3/uL (150.0-450.0); RED CELL DISTRIBUTION WIDTH 16.7 % (11.6-16.5); WHITE BLOOD COUNT 5.9 X10^3/uL (3.6-10.0)
[2018-07-02 06:12] LABS: PLATELET MORPHOLOGY COMMENT NORMAL (NORMAL)
[2018-07-02 06:21] LABS: ALANINE AMINOTRANSFERASE 17 Units/L (12-78); ALBUMIN 3.4 g/dL (3.4-5.0); ALKALINE PHOSPHATASE 78 Units/L (46-116); ASPARTATE AMINO TRANSFERASE 14 Units/L (15-37); BLOOD UREA NITROGEN 38 mg/dL (7-18); CALCIUM 9.2 mg/dL (8.5-10.1); CARBON DIOXIDE 31.3 mmol/L (21-32); CHLORIDE 103 mmol/L (98-107); COR NA(FOR HYPERGLY) 141 mmol/L (136-145); CREATININE 2.07 mg/dL (0.55-1.02); SODIUM 141 mmol/L (136-145); TOTAL PROTEIN 7.8 g/dL (6.4-8.2); eGFR NON BLACK RACES 26 (>60)
[2018-07-02] MEDS: ROCEPHIN VIAL 1 GRAM IVP SCH (09:34)
[2018-07-02] MEDS: LASIX IVP SCH (09:34)
[2018-07-02] MEDS: APRESOLINE TAB 10 MG PO SCH ×4 (09:34→20:28)
[2018-07-02] MEDS: NORVASC TAB 10 MG PO SCH (09:34)
--- NOTE | 2018-07-02 15:34 | RAD ---
Examination: KUB History: Abdominal pain the intestinal gas pattern is unremarkable. There is no evidence for abdominal mass, pathologic calcification or ascites. Impression: No acute findings on KUB. Reported By:
[2018-07-02 15:45] LABS: AMYLASE 69 Units/L (25-115); LIPASE 86 Units/L (73-393)
[2018-07-02] MEDS: SNACK - Diabetic Appropriate PO SCH (20:17)
[2018-07-02] MEDS: PROTONIX INJ 40 MG VIAL IVP SCH (20:28)
[2018-07-02] MEDS: COREG TAB 6.25 MG PO SCH (20:28)
[2018-07-02] MEDS: HumuLIN R SUBCUT PRN (20:28)
[2018-07-03] MEDS: XOPENEX 1.25 MG/3 ML NEBULE NEB SCH ×4 (00:56→17:12)
[2018-07-03] MEDS ORDERED: NORCO 5/325 MG TAB PO PRN (03:21)
[2018-07-03] MEDS ORDERED: NORCO 5/325 MG TAB ONE (03:22)
[2018-07-03 06:00] LABS: BASOPHILS # (AUTO) 0.1 X10^3/uL (0.0-0.1); EOSINOPHILS # (AUTO) 0.1 x10^3/uL (0.0-0.2); EOSINOPHILS % (AUTO) 2.3 % (0.9-2.9); HEMATOCRIT 32.9 % (36.0-47.0); LYMPHOCYTES # (AUTO) 1.8 X10^3/uL (1.3-2.9); LYMPHOCYTES % (AUTO) 34.6 % (21.0-51.0); MEAN CORPUSCULAR HEMOGLOBIN 26.2 pg (27.0-34.0); MEAN CORPUSCULAR VOLUME 81.8 fL (80.0-100.0); MEAN PLATELET VOLUME 8.1 fL (7.4-11.0); MONOCYTES # (AUTO) 0.4 x10^3/uL (0.3-0.8); MONOCYTES % (AUTO) 6.9 % (0.0-13.0); NEUTROPHILS # (AUTO) 2.9 x10^3/uL (2.2-4.8); NEUTROPHILS % (AUTO) 55.2 % (42.0-75.0); PLATELET COUNT 204 X10^3/uL (150.0-450.0); RED BLOOD COUNT 4.02 X10^6/uL (3.5-5.4); RED CELL DISTRIBUTION WIDTH 16.4 % (11.6-16.5); WHITE BLOOD COUNT 5.2 X10^3/uL (3.6-10.0)
[2018-07-03 06:02] LABS: HEMOGLOBIN 10.5 g/dL (12.0-16.0)
[2018-07-03 06:10] LABS: ALANINE AMINOTRANSFERASE 18 Units/L (12-78); ALBUMIN 2.9 g/dL (3.4-5.0); ALKALINE PHOSPHATASE 66 Units/L (46-116); ASPARTATE AMINO TRANSFERASE 14 Units/L (15-37); BLOOD UREA NITROGEN 44 mg/dL (7-18); CALCIUM 8.6 mg/dL (8.5-10.1); CARBON DIOXIDE 28.1 mmol/L (21-32); CHLORIDE 103 mmol/L (98-107); COR CA(FOR HYPOALB) 9.5 mg/dL (8.5-10.1); CREATININE 2.73 mg/dL (0.55-1.02); SODIUM 139 mmol/L (136-145); TOTAL PROTEIN 6.7 g/dL (6.4-8.2); eGFR NON BLACK RACES 19 (>60)
[2018-07-03] MEDS: PROTONIX INJ 40 MG VIAL IVP SCH ×2 (08:58→20:41)
[2018-07-03] MEDS: NORVASC TAB 10 MG PO SCH (08:58)
[2018-07-03] MEDS: COREG TAB 6.25 MG PO SCH ×2 (08:58→20:40)
[2018-07-03] MEDS: LASIX IVP SCH (08:58)
[2018-07-03] MEDS: APRESOLINE TAB 10 MG PO SCH ×4 (08:58→21:30)
[2018-07-03] MEDS: ROCEPHIN VIAL 1 GRAM IVP SCH (08:58)
--- NOTE | 2018-07-03 17:16 | PCM.PROG ---
Progress Note - Progress Note for Day of Date of Exam: 07/03/18 - Subjective Subjective: Mrs. Duarte is a 67-year-old black female who was an ER admission with TIA, rule out acute CVA, congestive heart failure, as well as cholelithiasis. The patients daughter stated that she had been very weak prior to admission and had an episode of nausea and vomiting times one. The patient had severely elevated blood pressure. She was admitted with hypertensive urgency and was started on IV Labetalol drip, which has been discontinued at this time. The patient is on Coreg and hydralazine, as well as an NORMA for blood pressure control. This morning, the patients blood pressure is 137/65. We did decreased her Coreg to 6.25 mg two times a day due to some bradycardia in the 50s which persisted. The patient denies any chest pain this morning. She continues to complain of some generalized weakness and some nausea. She is currently just on ice chips. The patient does have a history of some mild renal insufficiency. Her BUN on admission was 44 and creatine was 2.11, it is 44 and 2.73 this morning. PT STATES SHE FEELS BETTER THIS AM, IS HOLDING DOWN FLUIDS. PT LASIX D/CD DUE TO RENAL FUNCTION, ENCOURAGED PO HYDRATION - Past Medical Family Social History Past Med/Fam/Surg Hx: No changes since H&P Allergies: Allergies No Known Drug Allergies Allergy (Verified 07/01/18 02:37) - Review of Systems ROS: No change since H&P - Vital Signs and I&O's Vital Signs: Temperature 98.7 F Pulse Rate [Apical] 56 Pulse Rate 70 Respiratory Rate 23 Blood Pressure [Left Arm] 155/79 Blood Pressure [Right Arm] 134/68 Blood Pressure 137/65 O2 Sat by Pulse Oximetry 95 Intake and Output: Intake & Output 07/01/18 07/02/18 07/03/18 07/04/18 11:59 11:59 11:59 11:59 Intake Total 330 / 330 220 / 220 920 / 920 490 / 490 Output Total 1200 / 1200 1800 / 1800 1150 / 1150 500 / 500 Balance -870 / -870 -1580 / -1580 -230 / -230 -10 / -10 - Physical Exam Oriented: Normal Eyes: Normal Ear: Normal Nose: Normal Throat: Normal Respiratory: Diminished Cardiovascular: Normal, Edema : Normal Auscultation: Bowel Sounds: Normal Tenderness: Epigastric, Mild Skin: Decreased Turgur Musculoskeletal: Left, Arm, Leg, Back:Thoracic, Back:Lumbar, Motor Deficit, Sensory Deficit Mood Description: Calm Speech Pattern: Clear, Appropriate - Laboratory and Diagnostics Result Diagrams: 07/03/18 05:08 07/03/18 05:08 Labs: Laboratory WBC 5.2 X10^3/uL (3.6-10.0) 07/03/18 05:08 RBC 4.02 X10^6/uL (3.5-5.4) 07/03/18 05:08 Hgb 10.5 g/dL (12.0-16.0) L D 07/03/18 05:08 Hct 32.9 % (36.0-47.0) L 07/03/18 05:08 MCV 81.8 fL (80.0-100.0) 07/03/18 05:08 MCH 26.2 pg (27.0-34.0) L 07/03/18 05:08 MCHC 32.0 g/dL (33.0-35.0) L 07/03/18 05:08 RDW 16.4 % (11.6-16.5) 07/03/18 05:08 Plt Count 204 X10^3/uL (150.0-450.0) 07/03/18 05:08 Plt Count Comment Adequate (ADEQUATE) 07/02/18 05:46 MPV 8.1 fL (7.4-11.0) 07/03/18 05:08 Neut % (Auto) 55.2 % (42.0-75.0) 07/03/18 05:08 Lymph % (Auto) 34.6 % (21.0-51.0) 07/03/18 05:08 [place] % (Auto) 6.9 % (0.0-13.0) 07/03/18 05:08 Eos % (Auto) 2.3 % (0.9-2.9) 07/03/18 05:08 Baso % (Auto) 1.0 % (0.2-1.0) 07/03/18 05:08 Neut # (Auto) 2.9 x10^3/uL (2.2-4.8) 07/03/18 05:08 Lymph # (Auto) 1.8 X10^3/uL (1.3-2.9) 07/03/18 05:08 [place] # (Auto) 0.4 x10^3/uL (0.3-0.8) 07/03/18 05:08 Eos # (Auto) 0.1 x10^3/uL (0.0-0.2) 07/03/18 05:08 Baso # (Auto) 0.1 X10^3/uL (0.0-0.1) 07/03/18 05:08 Absolute Nucleated RBC 0.1 /100WBC 07/03/18 05:08 Total Counted 100 07/02/18 05:46 Neutrophils % (Manual) 81 % (39-76) H 07/02/18 05:46 Lymphocytes % (Manual) 17 % (13-43) 07/02/18 05:46 Monocytes % (Manual) 2 % (4-9) L 07/02/18 05:46 Plt Morphology Comment Normal (NORMAL) 07/02/18 05:46 RBC Morphology Normal (NORMAL) 07/02/18 05:46 INR Target Range - 07/01/18 03:26 INR 0.96 (0.8-1.3) 07/01/18 03:26 APTT 29.3 SECONDS (22.9-36.5) 07/01/18 03:26 PTT Comment - 07/01/18 03:26 Sodium 139 mmol/L (136-145) 07/03/18 05:08 Corrected Sodium TNP 07/03/18 05:08 Potassium 3.8 mmol/L (3.5-5.1) 07/03/18 05:08 Chloride 103 mmol/L (98-107) 07/03/18 05:08 Carbon Dioxide 28.1 mmol/L (21-32) 07/03/18 05:08 BUN 44 mg/dL (7-18) H 07/03/18 05:08 Creatinine 2.73 mg/dL (0.55-1.02) H 07/03/18 05:08 Est GFR (MDRD) Af Amer 22 (>60) L 07/03/18 05:08 Est GFR (MDRD) Non-Af 19 (>60) L 07/03/18 05:08 Glucose 110 mg/dL (65-99) H 07/03/18 05:08 Calcium 8.6 mg/dL (8.5-10.1) 07/03/18 05:08 Corrected Calcium 9.5 mg/dL (8.5-10.1) 07/03/18 05:08 Magnesium 2.0 mg/dL (1.7-2.9) 07/01/18 03:26 Total Bilirubin 0.20 mg/dL (0.2-1.0) 07/03/18 05:08 AST 14 Units/L (15-37) L 07/03/18 05:08 ALT 18 Units/L (12-78) 07/03/18 05:08 Alkaline Phosphatase 66 Units/L (46-116) 07/03/18 05:08 Total Protein 6.7 g/dL (6.4-8.2) 07/03/18 05:08 Albumin 2.9 g/dL (3.4-5.0) L 07/03/18 05:08 Globulin 3.8 g/dL (2.5-4.5) 07/03/18 05:08 Albumin/Globulin Ratio 0.8 Ratio (1.1-2.1) L 07/03/18 05:08 Amylase 69 Units/L (25-115) 07/02/18 15:16 Lipase 86 Units/L (73-393) 07/02/18 15:16 Specimen Type Catherized urine 07/01/18 07:00 Urine Color Yellow (YELLOW) 07/01/18 07:00 Urine Appearance Clear (CLEAR) 07/01/18 07:00 Urine pH 6.5 (5.0 - 8.0) 07/01/18 07:00 Ur Specific [place] 1.010 (1.000-1.030) 07/01/18 07:00 Urine Protein 3+ (NEGATIVE) 07/01/18 07:00 Urine Glucose (UA) 2+ (NEGATIVE) 07/01/18 07:00 Urine Ketones Negative (NEGATIVE) 07/01/18 07:00 Urine Occult Blood 3+ (NEGATIVE) 07/01/18 07:00 Urine Nitrite Negative (NEGATIVE) 07/01/18 07:00 Urine Bilirubin Negative (NEGATIVE) 07/01/18 07:00 Urine Urobilinogen Normal (NORMAL) 07/01/18 07:00 Ur Leukocyte Esterase Negative (NEGATIVE) 07/01/18 07:00 Urine RBC 3-5 /HPF (NONE SEEN) 07/01/18 07:00 Urine WBC 0-2 /HPF (NONE SEEN) 07/01/18 07:00 Ur Squamous Epith Cells Moderate /HPF (NEGATIVE) 07/01/18 07:00 Amorphous Sediment 1+ /HPF (NEGATIVE) 07/01/18 07:00 Urine Bacteria Negative /HPF (NEGATIVE) 07/01/18 07:00 Ur Culture Indicated? No/not indicated 07/01/18 07:00 - Plan (1) Hypertensive urgency Status: Inactive Plan: BP MANAGEMENT AND CARDIAC MONITORING. STRICT I & OS, SSI, RESP CONSULT, SUPPLEMENTAL O2. PAIN AND NAUSEA CONTROL. RESUME COREG AND NORVASC PO, KUB WITHOUT ACUTE FINDINGS. REPEAT AM LABS AND CXR. (2) Generalized weakness Status: Acute (3) Nausea & vomiting Status: Acute (4) CHF (congestive heart failure) Status: Chronic Plan: HOLD LASIX TODAY, CONTINUE STRICT I & OS. BLADDER TRAINING (5) Hypertension Status: Chronic
[2018-07-03] MEDS: SNACK - Diabetic Appropriate PO SCH (20:41)
[2018-07-03] MEDS: HumuLIN R SUBCUT PRN (20:41)
[2018-07-04] MEDS: XOPENEX 1.25 MG/3 ML NEBULE NEB SCH ×4 (00:42→17:23)
[2018-07-04 06:20] LABS: BASOPHILS # (AUTO) 0.1 X10^3/uL (0.0-0.1); BASOPHILS % (AUTO) 1.1 % (0.2-1.0); EOSINOPHILS # (AUTO) 0.2 x10^3/uL (0.0-0.2); EOSINOPHILS % (AUTO) 3.2 % (0.9-2.9); HEMATOCRIT 33.9 % (36.0-47.0); HEMOGLOBIN 10.7 g/dL (12.0-16.0); LYMPHOCYTES # (AUTO) 2.1 X10^3/uL (1.3-2.9); MEAN CORPUSCULAR HEMOGLOBIN 25.8 pg (27.0-34.0); MEAN CORPUSCULAR HGB CONC 31.6 g/dL (33.0-35.0); MEAN CORPUSCULAR VOLUME 81.7 fL (80.0-100.0); MEAN PLATELET VOLUME 8.1 fL (7.4-11.0); MONOCYTES # (AUTO) 0.3 x10^3/uL (0.3-0.8); MONOCYTES % (AUTO) 5.7 % (0.0-13.0); NEUTROPHILS # (AUTO) 2.5 x10^3/uL (2.2-4.8); PLATELET COUNT 188 X10^3/uL (150.0-450.0); RED BLOOD COUNT 4.15 X10^6/uL (3.5-5.4); RED CELL DISTRIBUTION WIDTH 16.6 % (11.6-16.5)
[2018-07-04 06:24] LABS: ALBUMIN 2.9 g/dL (3.4-5.0); CALCIUM 8.7 mg/dL (8.5-10.1); CARBON DIOXIDE 26.1 mmol/L (21-32); COR CA(FOR HYPOALB) 9.6 mg/dL (8.5-10.1); CREATININE 2.46 mg/dL (0.55-1.02); TOTAL PROTEIN 6.7 g/dL (6.4-8.2)
[2018-07-04 07:02] LABS: PLATELET MORPHOLOGY COMMENT NORMAL (NORMAL)
[2018-07-04] MEDS: APRESOLINE TAB 10 MG PO SCH ×5 (08:23→18:40)
[2018-07-04] MEDS: ROCEPHIN VIAL 1 GRAM IVP SCH (10:02)
[2018-07-04] MEDS: NORVASC TAB 10 MG PO SCH (10:02)
[2018-07-04] MEDS: PROTONIX INJ 40 MG VIAL IVP SCH ×2 (10:02→21:30)
[2018-07-04] MEDS: COREG TAB 6.25 MG PO SCH ×2 (10:02→21:30)
[2018-07-04] MEDS ORDERED: NS 1/2 1000 ML IV 1,000 ML IV ONE (11:13)
[2018-07-04] MEDS: HumuLIN R SUBCUT PRN (11:41)
[2018-07-04] MEDS: NS 1/2 1000 ML IV 1,000 ML IV SCH (12:49)
--- NOTE | 2018-07-04 15:30 | PCM.PROG ---
Progress Note - Progress Note for Day of Date of Exam: 07/04/18 - Subjective Subjective: Mrs. Duarte is a 67-year-old black female who was an ER admission with TIA, rule out acute CVA, congestive heart failure, as well as cholelithiasis w/o cystitis. The patients daughter stated that she had been very weak prior to admission and had an episode of nausea and vomiting times one. The patient had severely elevated blood pressure. She was admitted with hypertensive urgency and was started on IV Labetalol drip, which has been discontinued at this time. The patient is on Coreg and hydralazine, as well as norvasc for blood pressure control. This morning, the patients blood pressure is stable. The patient does have a history of some mild renal insufficiency. Her BUN 45, creat2.46 this morning. PT STATES SHE FEELS BETTER THIS AM, IS HOLDING DOWN FLUIDS. PT LASIX D/CD DUE TO RENAL FUNCTION, ENCOURAGED PO HYDRATION. PT CHANGED TO MED/SURG STATUS. REGULAR DIET. - Past Medical Family Social History Past Med/Fam/Surg Hx: No changes since H&P Allergies: Allergies No Known Drug Allergies Allergy (Verified 07/01/18 02:37) - Review of Systems ROS: No change since H&P - Vital Signs and I&O's Vital Signs: Temperature 98.1 F Pulse Rate [Apical] 56 Pulse Rate 61 Respiratory Rate 18 Blood Pressure [Left Arm] 155/79 Blood Pressure [Right Arm] 134/68 Blood Pressure 140/63 O2 Sat by Pulse Oximetry 97 Intake and Output: Intake & Output 07/02/18 07/03/18 07/04/18 07/05/18 11:59 11:59 11:59 11:59 Intake Total 220 / 220 920 / 920 1620 / 1620 Output Total 1800 / 1800 1150 / 1150 1900 / 1900 Balance -1580 / -1580 -230 / -230 -280 / -280 - Physical Exam Oriented: Normal Eyes: Normal Ear: Normal Nose: Normal Throat: Normal Respiratory: Diminished Cardiovascular: Normal, Edema : Normal Auscultation: Bowel Sounds: Normal Tenderness: Epigastric, Mild Skin: Decreased Turgur Musculoskeletal: Left, Arm, Leg, Back:Thoracic, Back:Lumbar, Motor Deficit, Sensory Deficit Mood Description: Calm Speech Pattern: Clear, Appropriate - Laboratory and Diagnostics Result Diagrams: 07/04/18 05:36 01/22/19 05:36 Labs: Laboratory WBC 5.0 X10^3/uL (3.6-10.0) 07/04/18 05:36 RBC 4.15 X10^6/uL (3.5-5.4) 07/04/18 05:36 Hgb 10.7 g/dL (12.0-16.0) L 07/04/18 05:36 Hct 33.9 % (36.0-47.0) L 07/04/18 05:36 MCV 81.7 fL (80.0-100.0) 07/04/18 05:36 MCH 25.8 pg (27.0-34.0) L 07/04/18 05:36 MCHC 31.6 g/dL (33.0-35.0) L 07/04/18 05:36 RDW 16.6 % (11.6-16.5) H 07/04/18 05:36 Plt Count 188 X10^3/uL (150.0-450.0) 07/04/18 05:36 Plt Count Comment Adequate (ADEQUATE) 07/04/18 05:36 MPV 8.1 fL (7.4-11.0) 07/04/18 05:36 Neut % (Auto) 49.0 % (42.0-75.0) 07/04/18 05:36 Lymph % (Auto) 41.0 % (21.0-51.0) 07/04/18 05:36 [place] % (Auto) 5.7 % (0.0-13.0) 07/04/18 05:36 Eos % (Auto) 3.2 % (0.9-2.9) H 07/04/18 05:36 Baso % (Auto) 1.1 % (0.2-1.0) H 07/04/18 05:36 Neut # (Auto) 2.5 x10^3/uL (2.2-4.8) 07/04/18 05:36 Lymph # (Auto) 2.1 X10^3/uL (1.3-2.9) 07/04/18 05:36 [place] # (Auto) 0.3 x10^3/uL (0.3-0.8) 07/04/18 05:36 Eos # (Auto) 0.2 x10^3/uL (0.0-0.2) 07/04/18 05:36 Baso # (Auto) 0.1 X10^3/uL (0.0-0.1) 07/04/18 05:36 Absolute Nucleated RBC 0.1 /100WBC 07/04/18 05:36 Total Counted 100 07/04/18 05:36 Neutrophils % (Manual) 58 % (39-76) 07/04/18 05:36 Lymphocytes % (Manual) 36 % (13-43) 07/04/18 05:36 Monocytes % (Manual) 2 % (4-9) L 07/04/18 05:36 Eosinophils % (Manual) 4 % (0-6) 07/04/18 05:36 Plt Morphology Comment Normal (NORMAL) 07/04/18 05:36 RBC Morphology Normal (NORMAL) 07/04/18 05:36 INR Target Range - 07/01/18 03:26 INR 0.96 (0.8-1.3) 07/01/18 03:26 APTT 29.3 SECONDS (22.9-36.5) 07/01/18 03:26 PTT Comment - 07/01/18 03:26 Sodium 137 mmol/L (136-145) 07/04/18 05:36 Corrected Sodium 138 mmol/L (136-145) 07/04/18 05:36 Potassium 3.9 mmol/L (3.5-5.1) 07/04/18 05:36 Chloride 103 mmol/L (98-107) 07/04/18 05:36 Carbon Dioxide 26.1 mmol/L (21-32) 07/04/18 05:36 BUN 45 mg/dL (7-18) H 07/04/18 05:36 Creatinine 2.46 mg/dL (0.55-1.02) H 07/04/18 05:36 Est GFR (MDRD) Af Amer 25 (>60) L 07/04/18 05:36 Est GFR (MDRD) Non-Af 21 (>60) L 07/04/18 05:36 Glucose 133 mg/dL (65-99) H 07/04/18 05:36 Calcium 8.7 mg/dL (8.5-10.1) 07/04/18 05:36 Corrected Calcium 9.6 mg/dL (8.5-10.1) 07/04/18 05:36 Magnesium 2.0 mg/dL (1.7-2.9) 07/01/18 03:26 Total Bilirubin 0.20 mg/dL (0.2-1.0) 07/04/18 05:36 AST 11 Units/L (15-37) L 07/04/18 05:36 ALT 18 Units/L (12-78) 07/04/18 05:36 Alkaline Phosphatase 65 Units/L (46-116) 07/04/18 05:36 Total Protein 6.7 g/dL (6.4-8.2) 07/04/18 05:36 Albumin 2.9 g/dL (3.4-5.0) L 07/04/18 05:36 Globulin 3.8 g/dL (2.5-4.5) 07/04/18 05:36 Albumin/Globulin Ratio 0.8 Ratio (1.1-2.1) L 07/04/18 05:36 Amylase 69 Units/L (25-115) 07/02/18 15:16 Lipase 86 Units/L (73-393) 07/02/18 15:16 Specimen Type Catherized urine 07/01/18 07:00 Urine Color Yellow (YELLOW) 07/01/18 07:00 Urine Appearance Clear (CLEAR) 07/01/18 07:00 Urine pH 6.5 (5.0 - 8.0) 07/01/18 07:00 Ur Specific [place] 1.010 (1.000-1.030) 07/01/18 07:00 Urine Protein 3+ (NEGATIVE) 07/01/18 07:00 Urine Glucose (UA) 2+ (NEGATIVE) 07/01/18 07:00 Urine Ketones Negative (NEGATIVE) 07/01/18 07:00 Urine Occult Blood 3+ (NEGATIVE) 07/01/18 07:00 Urine Nitrite Negative (NEGATIVE) 07/01/18 07:00 Urine Bilirubin Negative (NEGATIVE) 07/01/18 07:00 Urine Urobilinogen Normal (NORMAL) 07/01/18 07:00 Ur Leukocyte Esterase Negative (NEGATIVE) 07/01/18 07:00 Urine RBC 3-5 /HPF (NONE SEEN) 07/01/18 07:00 Urine WBC 0-2 /HPF (NONE SEEN) 07/01/18 07:00 Ur Squamous Epith Cells Moderate /HPF (NEGATIVE) 07/01/18 07:00 Amorphous Sediment 1+ /HPF (NEGATIVE) 07/01/18 07:00 Urine Bacteria Negative /HPF (NEGATIVE) 07/01/18 07:00 Ur Culture Indicated? No/not indicated 07/01/18 07:00 - Plan (1) Hypertensive urgency Status: Inactive Plan: BP MANAGEMENT AND CARDIAC MONITORING. STRICT I & OS, SSI, RESP CONSULT, SUPPLEMENTAL O2. PAIN AND NAUSEA CONTROL. RESUME COREG AND NORVASC PO, KUB WITHOUT ACUTE FINDINGS. REPEAT AM LABS AND CXR. (2) Generalized weakness Status: Acute (3) Nausea & vomiting Status: Acute (4) CHF (congestive heart failure) Status: Chronic Plan: HOLDING LASIX, D/C VINCENT STRICT I& OS (5) Hypertension Status: Chronic
[2018-07-04 16:07] LABS: CALCIUM 9.4 mg/dL (8.5-10.1); CARBON DIOXIDE 27.7 mmol/L (21-32); CREATININE 2.39 mg/dL (0.55-1.02)
[2018-07-04 16:35] VITALS: BP 133/67
[2018-07-04] MEDS: SNACK - Diabetic Appropriate PO SCH (21:30)
[2018-07-05] MEDS: XOPENEX 1.25 MG/3 ML NEBULE NEB SCH ×4 (01:30→17:07)
[2018-07-05] MEDS: NS 1/2 1000 ML IV 1,000 ML IV SCH (03:17)
[2018-07-05] MEDS ORDERED: NS 1/2 1000 ML IV 1,000 ML IV ONE ×2 (04:44→18:08)
[2018-07-05 06:42] LABS: BASOPHILS # (AUTO) 0.1 X10^3/uL (0.0-0.1); BASOPHILS % (AUTO) 0.9 % (0.2-1.0); EOSINOPHILS # (AUTO) 0.2 x10^3/uL (0.0-0.2); EOSINOPHILS % (AUTO) 2.7 % (0.9-2.9); HEMATOCRIT 36.2 % (36.0-47.0); HEMOGLOBIN 11.6 g/dL (12.0-16.0); LYMPHOCYTES # (AUTO) 2.2 X10^3/uL (1.3-2.9); LYMPHOCYTES % (AUTO) 35.2 % (21.0-51.0); MEAN CORPUSCULAR HGB CONC 32.1 g/dL (33.0-35.0); MEAN PLATELET VOLUME 8.2 fL (7.4-11.0); MONOCYTES # (AUTO) 0.3 x10^3/uL (0.3-0.8); MONOCYTES % (AUTO) 5.3 % (0.0-13.0); NEUTROPHILS # (AUTO) 3.5 x10^3/uL (2.2-4.8); NEUTROPHILS % (AUTO) 55.9 % (42.0-75.0); PLATELET COUNT 220 X10^3/uL (150.0-450.0); RED BLOOD COUNT 4.47 X10^6/uL (3.5-5.4); RED CELL DISTRIBUTION WIDTH 16.8 % (11.6-16.5); WHITE BLOOD COUNT 6.3 X10^3/uL (3.6-10.0)
[2018-07-05 06:52] LABS: ALANINE AMINOTRANSFERASE 16 Units/L (12-78); ALBUMIN 3.4 g/dL (3.4-5.0); ALKALINE PHOSPHATASE 76 Units/L (46-116); ASPARTATE AMINO TRANSFERASE 14 Units/L (15-37); BLOOD UREA NITROGEN 40 mg/dL (7-18); CALCIUM 9.6 mg/dL (8.5-10.1); CARBON DIOXIDE 23.5 mmol/L (21-32); CHLORIDE 99 mmol/L (98-107); COR NA(FOR HYPERGLY) 134 mmol/L (136-145); SODIUM 133 mmol/L (136-145); TOTAL PROTEIN 7.9 g/dL (6.4-8.2); eGFR NON BLACK RACES 25 (>60)
[2018-07-05 07:23] LABS: PLATELET MORPHOLOGY COMMENT NORMAL (NORMAL)
[2018-07-05] MEDS: APRESOLINE TAB 10 MG PO SCH ×5 (09:31→21:52)
[2018-07-05] MEDS: ROCEPHIN VIAL 1 GRAM IVP SCH (09:31)
[2018-07-05] MEDS: PROTONIX INJ 40 MG VIAL IVP SCH ×2 (09:31→21:52)
[2018-07-05] MEDS: COREG TAB 6.25 MG PO SCH ×2 (09:31→21:52)
[2018-07-05] MEDS: NORVASC TAB 10 MG PO SCH (09:31)
[2018-07-05] MEDS: HumuLIN R SUBCUT PRN ×2 (12:01→17:24)
--- NOTE | 2018-07-05 13:37 | PCM.PROG ---
Progress Note - Progress Note for Day of Date of Exam: 07/05/18 - Subjective Subjective: Mrs. Duarte is a 67-year-old black female who was an ER admission with TIA, rule out acute CVA, congestive heart failure, as well as cholelithiasis w/o cystitis. The patients daughter stated that she had been very weak prior to admission and had an episode of nausea and vomiting times one. The patient had severely elevated blood pressure. She was admitted with hypertensive urgency and was started on IV Labetalol drip, which has been discontinued at this time. The patient is on Coreg and hydralazine, as well as norvasc for blood pressure control. This morning, the patients blood pressure is stable. The patient does have a history of some mild renal insufficiency. Her BUN 40, creat2.10 this morning. INCREASED IV FLUIDS TO 75CC/HR PT BASE LINE CREAT ~1.75 PT STATES SHE FEELS BETTER THIS AM, IS HOLDING DOWN FLUIDS. PT LASIX D/CD DUE TO RENAL FUNCTION, ENCOURAGED PO HYDRATION. PT CHANGED TO MED/SURG STATUS. REGULAR DIET. - Past Medical Family Social History Past Med/Fam/Surg Hx: No changes since H&P Allergies: Allergies No Known Drug Allergies Allergy (Verified 07/01/18 02:37) - Review of Systems ROS: No change since H&P - Vital Signs and I&O's Vital Signs: Temperature 98.8 F Pulse Rate [Apical] 56 Pulse Rate 65 Respiratory Rate 20 Blood Pressure [Left Arm] 155/79 Blood Pressure [Right Arm] 134/68 Blood Pressure 133/67 O2 Sat by Pulse Oximetry 98 Intake and Output: Intake & Output 07/03/18 07/04/18 07/05/18 07/06/18 11:59 11:59 11:59 11:59 Intake Total 920 / 920 1620 / 1620 1700 / 1700 Output Total 1150 / 1150 1900 / 1900 Balance -230 / -230 -280 / -280 1700 / 1700 - Physical Exam Oriented: Normal Eyes: Normal Ear: Normal Nose: Normal Throat: Normal Respiratory: Diminished Cardiovascular: Normal, Edema : Normal Auscultation: Bowel Sounds: Normal Tenderness: Epigastric, Mild Skin: Decreased Turgur Musculoskeletal: Left, Arm, Leg, Back:Thoracic, Back:Lumbar, Motor Deficit, Sensory Deficit Mood Description: Calm Speech Pattern: Clear, Appropriate - Laboratory and Diagnostics Result Diagrams: 07/05/18 06:12 07/05/18 06:12 Labs: Laboratory WBC 6.3 X10^3/uL (3.6-10.0) 07/05/18 06:12 RBC 4.47 X10^6/uL (3.5-5.4) 07/05/18 06:12 Hgb 11.6 g/dL (12.0-16.0) L 07/05/18 06:12 Hct 36.2 % (36.0-47.0) 07/05/18 06:12 MCV 81.0 fL (80.0-100.0) 07/05/18 06:12 MCH 26.0 pg (27.0-34.0) L 07/05/18 06:12 MCHC 32.1 g/dL (33.0-35.0) L 07/05/18 06:12 RDW 16.8 % (11.6-16.5) H 07/05/18 06:12 Plt Count 220 X10^3/uL (150.0-450.0) 07/05/18 06:12 Plt Count Comment Adequate (ADEQUATE) 07/05/18 06:12 MPV 8.2 fL (7.4-11.0) 07/05/18 06:12 Neut % (Auto) 55.9 % (42.0-75.0) 07/05/18 06:12 Lymph % (Auto) 35.2 % (21.0-51.0) 07/05/18 06:12 [place] % (Auto) 5.3 % (0.0-13.0) 07/05/18 06:12 Eos % (Auto) 2.7 % (0.9-2.9) 07/05/18 06:12 Baso % (Auto) 0.9 % (0.2-1.0) 07/05/18 06:12 Neut # (Auto) 3.5 x10^3/uL (2.2-4.8) 07/05/18 06:12 Lymph # (Auto) 2.2 X10^3/uL (1.3-2.9) 07/05/18 06:12 [place] # (Auto) 0.3 x10^3/uL (0.3-0.8) 07/05/18 06:12 Eos # (Auto) 0.2 x10^3/uL (0.0-0.2) 07/05/18 06:12 Baso # (Auto) 0.1 X10^3/uL (0.0-0.1) 07/05/18 06:12 Absolute Nucleated RBC 0.0 /100WBC 07/05/18 06:12 Total Counted 100 07/05/18 06:12 Neutrophils % (Manual) 60 % (39-76) 07/05/18 06:12 Lymphocytes % (Manual) 34 % (13-43) 07/05/18 06:12 Monocytes % (Manual) 2 % (4-9) L 07/05/18 06:12 Eosinophils % (Manual) 4 % (0-6) 07/05/18 06:12 Plt Morphology Comment Normal (NORMAL) 07/05/18 06:12 RBC Morphology Normal (NORMAL) 07/05/18 06:12 INR Target Range - 07/01/18 03:26 INR 0.96 (0.8-1.3) 07/01/18 03:26 APTT 29.3 SECONDS (22.9-36.5) 07/01/18 03:26 PTT Comment - 07/01/18 03:26 Sodium 133 mmol/L (136-145) L 07/05/18 06:12 Corrected Sodium 134 mmol/L (136-145) L 07/05/18 06:12 Potassium 3.9 mmol/L (3.5-5.1) 07/05/18 06:12 Chloride 99 mmol/L (98-107) 07/05/18 06:12 Carbon Dioxide 23.5 mmol/L (21-32) 07/05/18 06:12 BUN 40 mg/dL (7-18) H 07/05/18 06:12 Creatinine 2.10 mg/dL (0.55-1.02) H 07/05/18 06:12 Est GFR (MDRD) Af Amer 30 (>60) L 07/05/18 06:12 Est GFR (MDRD) Non-Af 25 (>60) L 07/05/18 06:12 Glucose 133 mg/dL (65-99) H 07/05/18 06:12 Calcium 9.6 mg/dL (8.5-10.1) 07/05/18 06:12 Corrected Calcium TNP 07/05/18 06:12 Magnesium 2.0 mg/dL (1.7-2.9) 07/01/18 03:26 Total Bilirubin 0.30 mg/dL (0.2-1.0) 07/05/18 06:12 AST 14 Units/L (15-37) L 07/05/18 06:12 ALT 16 Units/L (12-78) 07/05/18 06:12 Alkaline Phosphatase 76 Units/L (46-116) 07/05/18 06:12 Total Protein 7.9 g/dL (6.4-8.2) 07/05/18 06:12 Albumin 3.4 g/dL (3.4-5.0) 07/05/18 06:12 Globulin 4.5 g/dL (2.5-4.5) 07/05/18 06:12 Albumin/Globulin Ratio 0.8 Ratio (1.1-2.1) L 07/05/18 06:12 Amylase 69 Units/L (25-115) 07/02/18 15:16 Lipase 86 Units/L (73-393) 07/02/18 15:16 Specimen Type Catherized urine 07/01/18 07:00 Urine Color Yellow (YELLOW) 07/01/18 07:00 Urine Appearance Clear (CLEAR) 07/01/18 07:00 Urine pH 6.5 (5.0 - 8.0) 07/01/18 07:00 Ur Specific [place] 1.010 (1.000-1.030) 07/01/18 07:00 Urine Protein 3+ (NEGATIVE) 07/01/18 07:00 Urine Glucose (UA) 2+ (NEGATIVE) 07/01/18 07:00 Urine Ketones Negative (NEGATIVE) 07/01/18 07:00 Urine Occult Blood 3+ (NEGATIVE) 07/01/18 07:00 Urine Nitrite Negative (NEGATIVE) 07/01/18 07:00 Urine Bilirubin Negative (NEGATIVE) 07/01/18 07:00 Urine Urobilinogen Normal (NORMAL) 07/01/18 07:00 Ur Leukocyte Esterase Negative (NEGATIVE) 07/01/18 07:00 Urine RBC 3-5 /HPF (NONE SEEN) 07/01/18 07:00 Urine WBC 0-2 /HPF (NONE SEEN) 07/01/18 07:00 Ur Squamous Epith Cells Moderate /HPF (NEGATIVE) 07/01/18 07:00 Amorphous Sediment 1+ /HPF (NEGATIVE) 07/01/18 07:00 Urine Bacteria Negative /HPF (NEGATIVE) 07/01/18 07:00 Ur Culture Indicated? No/not indicated 07/01/18 07:00 - Plan (1) Hypertensive urgency Status: Inactive Plan: BP MANAGEMENT AND CARDIAC MONITORING. STRICT I & OS, SSI, RESP CONSULT, SUPPLEMENTAL O2. PAIN AND NAUSEA CONTROL. RESUME COREG AND NORVASC PO. REPEAT AM LABS AND CXR. (2) Generalized weakness Status: Acute (3) Nausea & vomiting Status: Acute (4) CHF (congestive heart failure) Status: Chronic Plan: HOLDING LASIX, D/C VINCENT STRICT I& OS (5) Hypertension Status: Chronic (6) Renal failure (ARF), acute on chronic Status: Acute Plan: GENTLE IV HYDRATION, ENCOURAGE ORAL HYDRATION. BP CONTROL, REPEAT AM LABS
[2018-07-05] MEDS: SNACK - Diabetic Appropriate PO SCH (20:00)
[2018-07-06] MEDS: NS 1/2 1000 ML IV 1,000 ML IV SCH
[2018-07-06] MEDS: XOPENEX 1.25 MG/3 ML NEBULE NEB SCH ×2 (01:15→05:30)
[2018-07-06 06:41] LABS: BASOPHILS % (AUTO) 0.5 % (0.2-1.0); EOSINOPHILS # (AUTO) 0.3 x10^3/uL (0.0-0.2); EOSINOPHILS % (AUTO) 4.6 % (0.9-2.9); HEMATOCRIT 35.4 % (36.0-47.0); HEMOGLOBIN 11.2 g/dL (12.0-16.0); LYMPHOCYTES # (AUTO) 1.6 X10^3/uL (1.3-2.9); LYMPHOCYTES % (AUTO) 27.3 % (21.0-51.0); MEAN CORPUSCULAR HEMOGLOBIN 25.9 pg (27.0-34.0); MEAN CORPUSCULAR HGB CONC 31.6 g/dL (33.0-35.0); MEAN PLATELET VOLUME 8.4 fL (7.4-11.0); MONOCYTES # (AUTO) 0.4 x10^3/uL (0.3-0.8); MONOCYTES % (AUTO) 6.9 % (0.0-13.0); NEUTROPHILS # (AUTO) 3.6 x10^3/uL (2.2-4.8); NEUTROPHILS % (AUTO) 60.7 % (42.0-75.0); PLATELET COUNT 195 X10^3/uL (150.0-450.0); RED BLOOD COUNT 4.31 X10^6/uL (3.5-5.4); RED CELL DISTRIBUTION WIDTH 16.3 % (11.6-16.5); WHITE BLOOD COUNT 5.8 X10^3/uL (3.6-10.0)
[2018-07-06 06:45] LABS: ALBUMIN 3.1 g/dL (3.4-5.0); CARBON DIOXIDE 24.9 mmol/L (21-32); COR CA(FOR HYPOALB) 9.7 mg/dL (8.5-10.1); CREATININE 2.07 mg/dL (0.55-1.02); TOTAL PROTEIN 7.1 g/dL (6.4-8.2)
[2018-07-06 07:04] LABS: PLATELET MORPHOLOGY COMMENT NORMAL (NORMAL)
[2018-07-06] MEDS: COREG TAB 6.25 MG PO SCH (09:11)
[2018-07-06] MEDS: APRESOLINE TAB 10 MG PO SCH (09:11)
[2018-07-06] MEDS: NORVASC TAB 10 MG PO SCH (09:11)
[2018-07-06] MEDS: ROCEPHIN VIAL 1 GRAM IVP SCH (09:12)
[2018-07-06] MEDS: PROTONIX INJ 40 MG VIAL IVP SCH (09:12)
== END 2018-07-06 12:05 | disposition home or self-care (01) | DRG 304 ==
LOC: ER 02:30 → ICU 06:11 → MED/SURG 07-04 12:53
PROVIDERS: ADMIT Internal Medicine; ATTEND Internal Medicine
DX: R10.84 Generalized abdominal pain; I16.0 Hypertensive urgency; R42 Dizziness and giddiness; R47.1 Dysarthria and anarthria; E11.65 Type 2 diabetes mellitus with hyperglycemia; M19.90 Unspecified osteoarthritis, unspecified site; R26.89 Other abnormalities of gait and mobility; R94.31 Abnormal electrocardiogram [ECG] [EKG]; N28.9 Disorder of kidney and ureter, unspecified; I50.9 Heart failure, unspecified; K80.80 Other cholelithiasis without obstruction; I10 Essential (primary) hypertension; I63.81 Other cerebral infarction due to occlusion or stenosis of small artery; R11.2 Nausea with vomiting, unspecified; J44.9 Chronic obstructive pulmonary disease, unspecified; R53.1 Weakness
CPT/HCPCS: 36415; 51702; 70450; 71010; 71045; 74000; 74018; 74176; 80048; 80053; 81001; 82150; 83690; 83735; 85025; 85610; 85730; 92507; 92523; 93005; 94640; 96365; 96374; 96375; 97110; 97116; 97162; 97166; 97535; 99282; 99285; A4222; C9113; J0696; J1815; J1940; J2405; J2550; J3490; J7050

== ENCOUNTER 2019-06-17 14:35 | Inpatient (IN) ==
--- NOTE | 2019-06-17 14:44 | DR.SOBA ---
HPI Time Seen Time Seen by Provider: 06/17/19 14:43 HPI Comment HPI Comment: PATIENT IS 68YR OLD FEMALE WITH INCREASING SOB, ELEVATED BP AND WHEEZING FOR SEVERAL HOURS. PATIENT HAVE HISTORY OF HTN AND CHF. CURRENTLY WITH GENERALIZED BODY PAIN 5/10. RUNNING LOW GRADE FEVER. SOB INCREASES WITH EXERTION . BP ELEVATED IN ER. CHEST TIGHTNESS WITH INCREASE SOB. PATIENT IS WEAK. Complaints Chief Complaint Doctors Comments: INCREASING SOB AND ELEVATED BP. Reviewed Nurses Notes Reviewed: Yes Source History Provided: Patient Mode of Arrival Mode of Arrival: Ambulatory Duration Duration: Hours Context Onset:: At Rest PE Risk Factors:: None History of:: CHF Modifying Factors Worsens:: Exertion Improves:: Rest Associated Signs and Symptoms Associated Signs and Symptoms: Wheeze, Cough and Chest Pain If Chest Pain Quality: Pleuritic and Other (GENERALIZED BODY PAIN, CHEST TIGHTNESS.) Location: denies Chest Wall (GENERALIZED PAIN.) If Cough Cough: Productive and Clear PMH PMH Past Medical History: Arthritis, CHF, Coronary Artery Disease, CVA, Diabetes and Hypertension Past Surgical History: Yes Surgical History: Family History Family Medical History: Hypertension Social History Do you use any recreational Drugs:: No infectious screening Isolation: Standard ROS Review of Systems Constitutional: See HPI, Fever, Weakness and Fatigue Eyes: No Symptoms Reported and See HPI ENTM: No Symptoms Reported and See HPI; negative Ear Pain, Nose Discharge, Nose Congestion and Throat Pain Respiratoy: See HPI, Productive Cough, Short of Breath and Wheezing Cardiovascular: See HPI, Chest Pain and Edema Gastrointestinal/Abdominal: No Symptoms Reported and See HPI; negative Diarrhea and Vomiting Genitourinary: No Symptoms Reported and See HPI; negative Dysuria, Frequency and Hematuria Neurological: No Symptoms Reported and See HPI Musculoskeletal: See HPI and Muscle Pain Integumentary: No Symptoms Reported and See HPI Hematologic/Lymphatic: See HPI, Easy Bleeding and Easy Bruising Endocrine: No Symptoms Reported and See HPI; negative Intolerance to Cold and Intolerance to Heat Psychiatric: No Symptoms Reported and See HPI All Other Systems: Reviewed and Negative PE Vital Signs Vitals: Temperature 99.8 F Pulse Rate 79 Respiratory Rate 36 Blood Pressure [Left Arm] 184/100 Blood Pressure 148/66 O2 Sat by Pulse Oximetry 96 General Limitations: No Limitations General Appearance: Alert and In No Apparent Distress Head Head Exam: Normal Inspection and Atraumatic Eyes Eye exam: Normal Appearance, PERRL and EOMI; negative Scleral Icterus and Conjunctival Injection ENT ENT Exam: Normal External Ear Exam; negative Normal Oropharynx and TM's Normal Bilaterally Neck Neck Exam: Normal Inspection Chest Chest Inspection: Symmetric Chest Wall Rise; negative Tenderness Respiratory Respiratory Exam: Prolonged Expiratory Phase and Respiratory Distress; negative Accessory Muscle Use and Chest Wall Tenderness Respiratory Exam: Bilateral: Wheezing and Bilateral: Rhonchi, Upper: Wheezing and Lower: Wheezing and Lower: Rhonchi Cardiovascular Cardiovascular Exam: Regular Rate, Normal Rhythm, Normal Heart Sounds and +S3; negative Systolic Murmur and Diastolic Murmur Abdominal Exam Abdominal Exam: Normal Inspection, Normal Bowel Sounds and Soft; negative Tenderness Extremities Extremities Exam: Normal Capillary Refill and Edema; negative Tenderness and Calf Tenderness Back Back Exam: Normal Inspection; negative Tenderness, (R) CVA Tenderness, (L) CVA Tenderness, Paraspinal Tenderness and Vertebral Tenderness Neurologic Neurological Exam: Alert, Oriented X3 and CN II-XII Intact; negative Motor Sensory Deficit Psychiatric Psychiatric Exam: Normal Affect and Normal Mood Skin Skin Exam: Warm, Dry, Intact, Normal Color and Other (EDEMA.) MDM Differential Diagnosis Differential Diagnosis: CHF, Hypertensive Emergency, Hyponatremia, Mycardial Infarction, Pneumonia, Pneumothorax, Respiratory Insufficiency, Sinusitis and URI COURSE Treatment Treatment: SEE ORDERS. SALINE NEB, LASIX 40MG IV. Education/Counseling Education/Counseling: Patient Educated On: Diagnosis ROR Labs Reviewed Laboratory Results Reviewed?: Yes Result Diagrams: 06/22/19 06:07 06/22/19 06:07 Laboratory: 06/17/19 17:15 Blood Blood Culture - Final 06/17/19 17:10 Blood Blood Culture - Final 06/17/19 15:48 Sputum - Expectorated Sputum Sputum Culture - Final 06/17/19 15:48 Sputum - Expectorated Sputum - Final WBC 3.7 X10^3/uL (3.6-10.0) 06/18/19 05:25 RBC 4.03 X10^6/uL (3.5-5.4) 06/18/19 05:25 Hgb 10.6 g/dL (12.0-16.0) L 06/18/19 05:25 Hct 32.8 % (36.0-47.0) L 06/18/19 05:25 MCV 81.5 fL (80.0-100.0) 06/18/19 05:25 MCH 26.4 pg (27.0-34.0) L 06/18/19 05:25 MCHC 32.5 g/dL (33.0-35.0) L 06/18/19 05:25 RDW 16.9 % (11.6-16.5) H 06/18/19 05:25 Plt Count 131 X10^3/uL (150.0-450.0) L 06/18/19 05:25 Plt Count Comment Adequate (ADEQUATE) 06/17/19 17:15 MPV 7.7 fL (7.4-11.0) 06/18/19 05:25 Neut % (Auto) 85.2 % (42.0-75.0) H 06/18/19 05:25 Lymph % (Auto) 6.6 % (21.0-51.0) L 06/18/19 05:25 [place] % (Auto) 7.3 % (0.0-13.0) 06/18/19 05:25 Eos % (Auto) 0.2 % (0.9-2.9) L 06/18/19 05:25 Baso % (Auto) 0.7 % (0.2-1.0) 06/18/19 05:25 Neut # (Auto) 3.1 x10^3/uL (2.2-4.8) 06/18/19 05:25 Lymph # (Auto) 0.2 X10^3/uL (1.3-2.9) L 06/18/19 05:25 [place] # (Auto) 0.3 x10^3/uL (0.3-0.8) 06/18/19 05:25 Eos # (Auto) 0.0 x10^3/uL (0.0-0.2) 06/18/19 05:25 Baso # (Auto) 0.0 X10^3/uL (0.0-0.1) 06/18/19 05:25 Absolute Nucleated RBC 0.1 /100WBC 06/18/19 05:25 Total Counted 100 06/17/19 17:15 Neutrophils % (Manual) 89 % (39-76) H 06/17/19 17:15 Lymphocytes % (Manual) 4 % (13-43) L 01/05/20 17:15 Monocytes % (Manual) 6 % (4-9) 06/17/19 17:15 Eosinophils % (Manual) 1 % (0-6) 06/17/19 17:15 Plt Morphology Comment Normal (NORMAL) 06/17/19 17:15 RBC Morphology Abnormal (NORMAL) A 06/17/19 17:15 Hypochromasia Slight A 06/17/19 17:15 Anisocytosis Slight A 06/17/19 17:15 Sample Site Rrad 06/17/19 15:28 ABG pH 7.350 (7.35-7.45) 06/17/19 15:28 ABG pCO2 50.0 mmHg (35.0-45.0) H 06/17/19 15:28 ABG pO2 62.0 mmHg (80.0-100.0) L 06/17/19 15:28 ABG HCO3 27.6 mmol/L (22-26) H 06/17/19 15:28 ABG O2 Saturation 90.0 % (90-100) 06/17/19 15:28 ABG Base Excess 1.3 mmol/L (-2.0-2.0) 06/17/19 15:28 Francisco Javier Test Pos 06/17/19 15:28 A-a Gradient 104.0 mmHg 06/17/19 15:28 FiO2 32.0 06/17/19 15:28 Blood Gas Comments Pt domingo well elj 06/17/19 15:28 Sodium 138 mmol/L (136-145) 06/18/19 05:25 Corrected Sodium 139 mmol/L (136-145) 06/18/19 05:25 Potassium 4.2 mmol/L (3.5-5.1) 06/18/19 05:25 Chloride 102 mmol/L (98-107) 06/18/19 05:25 Carbon Dioxide 26.1 mmol/L (21-32) 06/18/19 05:25 BUN 30 mg/dL (7-18) H 06/18/19 05:25 Creatinine 2.26 mg/dL (0.55-1.02) H 06/18/19 05:25 Est GFR (MDRD) Af Amer 28 (>60) L 06/18/19 05:25 Est GFR (MDRD) Non-Af 23 (>60) L 06/18/19 05:25 Glucose 129 mg/dL (65-99) H 06/18/19 05:25 Lactic Acid 0.6 mmol/L (0.4-2.0) 06/17/19 17:15 Calcium 8.4 mg/dL (8.5-10.1) L 06/18/19 05:25 Corrected Calcium TNP 06/17/19 17:15 Total Bilirubin 0.40 mg/dL (0.2-1.0) 06/17/19 17:15 AST 16 Units/L (15-37) 06/17/19 17:15 ALT 17 Units/L (12-78) 06/17/19 17:15 Alkaline Phosphatase 84 Units/L (46-116) 06/17/19 17:15 Creatine Kinase 191 Units/L (26-192) 06/17/19 17:15 CK-MB (CK-2) 1.7 ng/mL (0-4.0) 06/17/19 17:15 CK/CKMB % Calc 0.9 % (<4) 06/17/19 17:15 Troponin I < 0.02 ng/mL (0-1.5) 06/17/19 17:15 B-Natriuretic Peptide 182 pg/mL (0-79) H 06/17/19 17:15 Total Protein 8.7 g/dL (6.4-8.2) H 06/17/19 17:15 Albumin 3.7 g/dL (3.4-5.0) 06/17/19 17:15 Globulin 5.0 g/dL (2.5-4.5) H 06/17/19 17:15 Albumin/Globulin Ratio 0.7 Ratio (1.1-2.1) L 06/17/19 17:15 Specimen Type Catherized urine 06/17/19 23:00 Urine Color Pale yellow (YELLOW) 06/17/19 23:00 Urine Appearance Clear (CLEAR) 06/17/19 23:00 Urine pH 5.0 (5.0 - 8.0) 06/17/19 23:00 Ur Specific [place] 1.010 (1.000-1.030) 06/17/19 23:00 Urine Protein 4+ (NEGATIVE) 06/17/19 23:00 Urine Glucose (UA) Negative (NEGATIVE) 06/17/19 23:00 Urine Ketones Negative (NEGATIVE) 06/17/19 23:00 Urine Occult Blood 4+ (NEGATIVE) 06/17/19 23:00 Urine Nitrite Negative (NEGATIVE) 06/17/19 23:00 Urine Bilirubin Negative (NEGATIVE) 06/17/19 23:00 Urine Urobilinogen Normal (NORMAL) 06/17/19 23:00 Ur Leukocyte Esterase Negative (NEGATIVE) 06/17/19 23:00 Urine RBC 5-10 /HPF (0-3) A 06/17/19 23:00 Urine WBC 0-2 /HPF (0-5) 06/17/19 23:00 Ur Squamous Epith Cells Rare /HPF (NEGATIVE) 06/17/19 23:00 Urine Bacteria Negative /HPF (NEGATIVE) 06/17/19 23:00 Ur Culture Indicated? No/not indicated 06/17/19 23:00 Influenza Type A (PCR) Positive (NEGATIVE) A 06/17/19 18:57 Influenza Type B (PCR) Negative (NEGATIVE) 06/17/19 18:57 Other Results Comments: CHEST, 1 VIEW History: SOB, WHEEZING, AND ELEVATED BP Comparison: 07/01/2018 Findings: There is stable enlargement of the cardiac silhouette. There is persistent bilateral interstitial prominence, suggestive for mild edema. No acute alveolar infiltrate or significant effusion is identified. No pneumothorax. Impression: Stable cardiomegaly and mild interstitial edema. XRAY XRAY Interpreted by: Radiologist XRAY Findings: REPORT NOTED. EKG Rate: 86 [place]: Normal Rhythm: NSR Block: 1 Hypertrophy: None ST: Inf (ST T CHANGES.) and Nonsp Opioid Opioid Risk Tool Age ([place] box if 16-45): No Total: 0 Total Score Risk Category: Low Risk Copyright: [facility] predicting aberrant behaviors Instructions Instructions: Type 2 Diabetes Mellitus, Diagnosis, Adult Influenza, Adult, [id number]-[id number]-Wzex Hyperglycemia, Lqno-[id number]-Nebz Chronic Obstructive Pulmonary Disease Exacerbation, Uzxi-pn-Vjeh Acute Kidney Injury, Adult Chronic Kidney Disease, Adult, [id number] Community-Acquired Pneumonia, Adult
[2019-06-17 15:35] LABS: ABG BASE EXCESS 1.3 mmol/L (-2.0-2.0); ABG HCO3 27.6 mmol/L (22-26)
[2019-06-17 15:36] LABS: ABG ALLEN TEST POS
[2019-06-17] MEDS ORDERED: SALINE 3% 15 ML NEB TX NEB ONE (15:42)
[2019-06-17] MEDS ORDERED: SALINE 3% 15 ML NEB TX ONE (15:43)
--- NOTE | 2019-06-17 15:57 | RAD ---
CHEST, 1 VIEWHistory: SOB, WHEEZING, AND ELEVATED BPComparison: 07/01/2018Findings: There is stable enlargement of the cardiac silhouette. There is persistent bilateral interstitial prominence, suggestive for mild edema. No acute alveolar infiltrate or significant effusion is identified. No pneumothorax.Impression: Stable cardiomegaly and mild interstitial edema.Electronically signed by: REBECCA LOZADA (Jun 17, 2019 15:55:18)
[2019-06-17] MEDS ORDERED: LASIX IVP ONE ×2 (16:22→16:53)
[2019-06-17 17:30] LABS: BASOPHILS % (AUTO) 0.4 % (0.2-1.0); EOSINOPHILS % (AUTO) 0.2 % (0.9-2.9); HEMATOCRIT 37.2 % (36.0-47.0); LYMPHOCYTES # (AUTO) 2.2 X10^3/uL (1.3-2.9); LYMPHOCYTES % (AUTO) 42.1 % (21.0-51.0); MEAN CORPUSCULAR HEMOGLOBIN 26.4 pg (27.0-34.0); MEAN CORPUSCULAR HGB CONC 32.3 g/dL (33.0-35.0); MEAN CORPUSCULAR VOLUME 81.7 fL (80.0-100.0); MEAN PLATELET VOLUME 7.8 fL (7.4-11.0); MONOCYTES # (AUTO) 0.1 x10^3/uL (0.3-0.8); MONOCYTES % (AUTO) 2.6 % (0.0-13.0); NEUTROPHILS # (AUTO) 2.8 x10^3/uL (2.2-4.8); NEUTROPHILS % (AUTO) 54.7 % (42.0-75.0); PLATELET COUNT 155 X10^3/uL (150.0-450.0); RED BLOOD COUNT 4.55 X10^6/uL (3.5-5.4); RED CELL DISTRIBUTION WIDTH 16.9 % (11.6-16.5); WHITE BLOOD COUNT 5.2 X10^3/uL (3.6-10.0)
[2019-06-17 17:47] LABS: BLOOD UREA NITROGEN 32 mg/dL (7-18); CALCIUM 9.1 mg/dL (8.5-10.1); CARBON DIOXIDE 27.1 mmol/L (21-32); CHLORIDE 101 mmol/L (98-107); COR NA(FOR HYPERGLY) 136 mmol/L (136-145); SODIUM 136 mmol/L (136-145); TROPONIN I < 0.02 ng/mL (0-1.5); eGFR NON BLACK RACES 25 (>60)
[2019-06-17 17:52] LABS: ALANINE AMINOTRANSFERASE 17 Units/L (12-78); ALBUMIN 3.7 g/dL (3.4-5.0); ALKALINE PHOSPHATASE 84 Units/L (46-116); ASPARTATE AMINO TRANSFERASE 16 Units/L (15-37); CKMB % 0.9 % (<4); CREATINE KINASE 191 Units/L (26-192); CREATINE KINASE MB 1.7 ng/mL (0-4.0); TOTAL PROTEIN 8.7 g/dL (6.4-8.2)
[2019-06-17 17:56] LABS: ANISOCYTOSIS SLIGHT; PLATELET MORPHOLOGY COMMENT NORMAL (NORMAL)
[2019-06-17 17:57] LABS: HYPOCHROMASIA SLIGHT
[2019-06-17] MEDS ORDERED: APRESOLINE TAB 10 MG PO SCH ×2 (21:45→23:00)
[2019-06-17] MEDS ORDERED: NEURONTIN CAP 400 MG PO SCH ×2 (22:00→23:00)
[2019-06-17] MEDS ORDERED: CATAPRES TAB 0.2 MG PO ONE (22:15)
[2019-06-17] MEDS ORDERED: CATAPRES TAB 0.2 MG ONE (22:17)
[2019-06-17] MEDS ORDERED: HumuLIN R SUBCUT PRN (22:42)
[2019-06-17 23:24] LABS: BILIRUBIN,URINE NEGATIVE (NEGATIVE); BLOOD/HEMOGLOBIN,URINE 4+ (NEGATIVE); GLUCOSE, URINE NEGATIVE (NEGATIVE); KETONES,URINE NEGATIVE (NEGATIVE); LEUKOCYTE ESTERASE ,URINE NEGATIVE (NEGATIVE); NITRITES,URINE NEGATIVE (NEGATIVE); PROTEIN,URINE 4+ (NEGATIVE); UROBILINOGEN,URINE NORMAL (NORMAL)
[2019-06-17 23:35] LABS: APPEARANCE,URINE CLEAR (CLEAR); BACTERIA,URINE NEGATIVE /HPF (NEGATIVE); COLOR,URINE PALE YELLOW (YELLOW); SQUAMOUS EPITHELIAL CELL,UR RARE /HPF (NEGATIVE)
[2019-06-17] MEDS ORDERED: NS 250 ML IV 0 ML IV ONE (23:42)
[2019-06-17] MEDS ORDERED: FORTAZ or TAZICEF VIAL INJ ONE (23:42)
[2019-06-17] MEDS ORDERED: NS 50 ML IV 0 ML IV ONE (23:43)
[2019-06-18] MEDS ORDERED: DUONEB 0.5 MG/3 MG (3 mL) NEB SCH
[2019-06-18] MEDS: FORTAZ or TAZICEF VIAL INJ 500 MG in NS 25 ML IV 25 ML IV SCH ×4 (00:10→21:27)
[2019-06-18 00:49] VITALS: BMI 63.5
[2019-06-18] MEDS: DUONEB 0.5 MG/3 MG (3 mL) NEB SCH ×6 (01:40→21:00)
[2019-06-18 06:13] LABS: BASOPHILS % (AUTO) 0.7 % (0.2-1.0); EOSINOPHILS % (AUTO) 0.2 % (0.9-2.9); HEMATOCRIT 32.8 % (36.0-47.0); HEMOGLOBIN 10.6 g/dL (12.0-16.0); LYMPHOCYTES # (AUTO) 0.2 X10^3/uL (1.3-2.9); LYMPHOCYTES % (AUTO) 6.6 % (21.0-51.0); MEAN CORPUSCULAR HEMOGLOBIN 26.4 pg (27.0-34.0); MEAN CORPUSCULAR HGB CONC 32.5 g/dL (33.0-35.0); MEAN CORPUSCULAR VOLUME 81.5 fL (80.0-100.0); MEAN PLATELET VOLUME 7.7 fL (7.4-11.0); MONOCYTES # (AUTO) 0.3 x10^3/uL (0.3-0.8); MONOCYTES % (AUTO) 7.3 % (0.0-13.0); NEUTROPHILS # (AUTO) 3.1 x10^3/uL (2.2-4.8); NEUTROPHILS % (AUTO) 85.2 % (42.0-75.0); PLATELET COUNT 131 X10^3/uL (150.0-450.0); RED BLOOD COUNT 4.03 X10^6/uL (3.5-5.4); RED CELL DISTRIBUTION WIDTH 16.9 % (11.6-16.5); WHITE BLOOD COUNT 3.7 X10^3/uL (3.6-10.0)
[2019-06-18 07:35] LABS: CALCIUM 8.4 mg/dL (8.5-10.1); CARBON DIOXIDE 26.1 mmol/L (21-32); CREATININE 2.26 mg/dL (0.55-1.02)
[2019-06-18] MEDS: ZITHROMAX INJ 500 MG VIAL 500 MG in NS 250 ML IV 250 ML IV SCH (08:56)
[2019-06-18] MEDS: LASIX IVP SCH ×2 (08:57→21:27)
[2019-06-18] MEDS: ASPIRIN EC 81 MG PO SCH (08:58)
[2019-06-18] MEDS: NORVASC TAB 10 MG PO SCH (08:58)
[2019-06-18] MEDS: CLARITIN PO SCH (08:58)
[2019-06-18] MEDS ORDERED: CATAPRES TAB 0.1 MG PO SCH ×2 (09:00)
[2019-06-18] MEDS ORDERED: COREG TAB 6.25 MG PO SCH ×2 (09:00)
[2019-06-18] MEDS ORDERED: OMEPRAZOLE 20 MG PO SCH ×2 (09:00)
[2019-06-18] MEDS: NS 1000 ML 1,000 ML IV SCH ×2 (09:00→23:00)
[2019-06-18] MEDS ORDERED: LOVENOX INJ 40 MG SYR SC SCH (09:00)
[2019-06-18] MEDS ORDERED: PriLOSEC PO SCH (09:00)
[2019-06-18] MEDS ORDERED: NS 1000 ML 1,000 ML ONE (09:02)
--- NOTE | 2019-06-18 18:08 | DR.H&P ---
H&P - History & Physical for Day of: H&P Date: 06/18/19 - Chief Complaint Chief Complaint: FEVER, CHILLS, CCC, SOB - History of Present Illness History of Present Illness: PT IS 68 BF ER ADMISSION WITH ACUTE BRONCHITIS, INFLUENZA A CO CCC, CHILLS AND SOB. PT HAD PMH OF CVD, HTN, DM, CRF, OA. PT ADMITTED FOR TREATMENT OF ACUTE RESP DISTRESS, FLU A - Past Medical History Past Medical History: Coronary Artery Disease, Hypertension, Diabetes, CVA, Arthritis, CHF - Past Surgical History Surgical History: , Hysterectomy - Family History Family Medical History: Diabetes Mellitus, Cancer, [place], Hypertension - Social History Does patient currently use any type of tobacco product: No Have you used tobacco products in the last 12 months: No Type of Tobacco Use: None Does any household member use tobacco: No Alcohol Use: None Drug Use: None - Medications Home Medications: No Known Drug Allergies Allergy (Verified 07/01/18 02:37) CONTINUE taking the following medications aspirin [Aspir-81] 81 mg PO DAILY 06/17/19 [History] clonidine HCl 0.1 mg PO BID 06/17/19 [History] gabapentin 800 mg PO TID 06/17/19 [History] hydralazine 10 mg PO Q8H 06/17/19 [History] loratadine 10 mg PO DAILY 06/17/19 [History] omeprazole 20 mg PO DAILY 06/17/19 [History] - Review of Systems Constitutional: Fever, Chills, Sweats, Weakness Eyes: No Symptoms Reported ENT: Nose Discharge, Nose Congestion, Throat Pain Respiratory: Cough, Shortness of Breath, SOB with Excertion, Sputum, Wheezing Cardiovascular: Edema Gastrointestinal: Nausea, Vomiting Genitourinary: No Symptoms Reported Musculoskeletal: Back Pain, Leg Pain Skin: No Symptoms Reported Neurological: Weakness - Physical Exam Vital Signs: Temperature 99.3 F Pulse Rate 84 Respiratory Rate 29 Blood Pressure [Left Arm] 184/100 Blood Pressure 124/59 O2 Sat by Pulse Oximetry 99 Oriented: Normal Eyes: Normal Ear: Normal Nose: Discharge Throat: Dry Respiratory: Rhonchi Throughout, Wheezes Throughout, RLL Diminished, LLL Diminished Cardiovascular: Tachycardia, Edema : Normal Auscultation: Bowel Sounds: Normal Palpation: Normal Tenderness: Normal Skin: Decreased Turgur Musculoskeletal: Back:Thoracic, Back:Lumbar, Motor Deficit Psychiatric: Anxiety Affect: Anxious Speech Pattern: Clear, Appropriate - Assessment/Plan (1) Bronchopneumonia Status: Acute Plan: ADMIT ICU. RESP THERAPY, BLOOD AND SPUTUM CULTURES ORDERED ON ADMISSION. ABG, CXR ON ADMISSION. VERIFY HOME MEDICATION, ABG, SUPPLEMENTAL O2. VINCENT CATH STRICT I & OS, DUO NEBS, CARDIAC MONITORING. SSI CONTROL, BP MONITORING (2) Influenza A Status: Acute (3) Renal failure (ARF), acute on chronic Status: Acute (4) CHF (congestive heart failure) Status: Chronic (5) Hypertension Status: Chronic - Allergies Allergies/Adverse Reactions: Allergies Allergy/AdvReac Type Severity Reaction Status Date / Time No Known Drug Allergies Allergy Verified 07/01/18 02:37
[2019-06-18] MEDS ORDERED: SNACK - Diabetic Appropriate PO SCH (20:00)
[2019-06-18] MEDS: COLACE CAP 100 MG PO SCH (21:26)
[2019-06-18] MEDS: MILK OF MAGNESIA PO SCH (21:27)
[2019-06-19] MEDS: DUONEB 0.5 MG/3 MG (3 mL) NEB SCH ×6 (01:04→21:00)
[2019-06-19] MEDS: FORTAZ or TAZICEF VIAL INJ 500 MG in NS 25 ML IV 25 ML IV SCH (05:57)
[2019-06-19 06:26] LABS: ALBUMIN 2.8 g/dL (3.4-5.0); CALCIUM 8.1 mg/dL (8.5-10.1); CARBON DIOXIDE 28.7 mmol/L (21-32); COR CA(FOR HYPOALB) 9.1 mg/dL (8.5-10.1); CREATININE 2.65 mg/dL (0.55-1.02); TOTAL PROTEIN 7.1 g/dL (6.4-8.2)
[2019-06-19 06:27] LABS: BASOPHILS % (AUTO) 1.3 % (0.2-1.0); EOSINOPHILS % (AUTO) 0.4 % (0.9-2.9); HEMATOCRIT 34.3 % (36.0-47.0); HEMOGLOBIN 10.9 g/dL (12.0-16.0); LYMPHOCYTES # (AUTO) 0.4 X10^3/uL (1.3-2.9); LYMPHOCYTES % (AUTO) 14.1 % (21.0-51.0); MEAN CORPUSCULAR HEMOGLOBIN 26.2 pg (27.0-34.0); MEAN CORPUSCULAR HGB CONC 31.8 g/dL (33.0-35.0); MEAN CORPUSCULAR VOLUME 82.4 fL (80.0-100.0); MEAN PLATELET VOLUME 8.3 fL (7.4-11.0); MONOCYTES # (AUTO) 0.4 x10^3/uL (0.3-0.8); MONOCYTES % (AUTO) 13.3 % (0.0-13.0); NEUTROPHILS # (AUTO) 2.1 x10^3/uL (2.2-4.8); NEUTROPHILS % (AUTO) 70.9 % (42.0-75.0); PLATELET COUNT 120 X10^3/uL (150.0-450.0); RED BLOOD COUNT 4.17 X10^6/uL (3.5-5.4); RED CELL DISTRIBUTION WIDTH 16.9 % (11.6-16.5); WHITE BLOOD COUNT 2.9 X10^3/uL (3.6-10.0)
[2019-06-19 06:57] LABS: PLATELET MORPHOLOGY COMMENT NORMAL (NORMAL)
[2019-06-19] MEDS: LOVENOX INJ 30 MG SYR SC SCH (08:40)
[2019-06-19] MEDS: ASPIRIN EC 81 MG PO SCH (08:41)
[2019-06-19] MEDS: CLARITIN PO SCH (08:41)
[2019-06-19] MEDS: ZITHROMAX INJ 500 MG VIAL 500 MG in NS 250 ML IV 250 ML IV SCH (08:41)
[2019-06-19] MEDS: NORVASC TAB 10 MG PO SCH (08:41)
[2019-06-19] MEDS: NS 1000 ML 1,000 ML IV SCH (17:04)
[2019-06-19] MEDS: SNACK - Diabetic Appropriate PO SCH (20:00)
[2019-06-19] MEDS: COLACE CAP 100 MG PO SCH (21:00)
[2019-06-19] MEDS: MILK OF MAGNESIA PO SCH (21:00)
[2019-06-19] MEDS: FORTAZ or TAZICEF VIAL INJ 1 G in NS 100 ML IV + SPIKE MINIBAG* 100 ML IV SCH (21:00)
[2019-06-20] MEDS: DUONEB 0.5 MG/3 MG (3 mL) NEB SCH ×6 (00:35→20:35)
[2019-06-20] MEDS: NS 1000 ML 1,000 ML IV SCH ×2 (03:07→18:32)
[2019-06-20 06:18] LABS: BASOPHILS % (AUTO) 0.8 % (0.2-1.0); EOSINOPHILS # (AUTO) 0.1 x10^3/uL (0.0-0.2); EOSINOPHILS % (AUTO) 2.6 % (0.9-2.9); HEMATOCRIT 32.7 % (36.0-47.0); HEMOGLOBIN 10.4 g/dL (12.0-16.0); LYMPHOCYTES # (AUTO) 0.6 X10^3/uL (1.3-2.9); LYMPHOCYTES % (AUTO) 24.7 % (21.0-51.0); MEAN CORPUSCULAR HEMOGLOBIN 26.2 pg (27.0-34.0); MEAN CORPUSCULAR HGB CONC 31.8 g/dL (33.0-35.0); MEAN CORPUSCULAR VOLUME 82.1 fL (80.0-100.0); MEAN PLATELET VOLUME 7.5 fL (7.4-11.0); MONOCYTES # (AUTO) 0.3 x10^3/uL (0.3-0.8); MONOCYTES % (AUTO) 11.2 % (0.0-13.0); NEUTROPHILS # (AUTO) 1.5 x10^3/uL (2.2-4.8); NEUTROPHILS % (AUTO) 60.7 % (42.0-75.0); PLATELET COUNT 118 X10^3/uL (150.0-450.0); RED BLOOD COUNT 3.98 X10^6/uL (3.5-5.4); RED CELL DISTRIBUTION WIDTH 16.7 % (11.6-16.5); WHITE BLOOD COUNT 2.5 X10^3/uL (3.6-10.0)
[2019-06-20 06:45] LABS: ALBUMIN 2.6 g/dL (3.4-5.0); CALCIUM 7.9 mg/dL (8.5-10.1); CARBON DIOXIDE 29.6 mmol/L (21-32); CHOL/HDL RATIO 3.2 (0.0-5.0); CREATININE 2.63 mg/dL (0.55-1.02); TOTAL PROTEIN 6.9 g/dL (6.4-8.2)
[2019-06-20] MEDS: LOVENOX INJ 30 MG SYR SC SCH (09:01)
[2019-06-20] MEDS: FORTAZ or TAZICEF VIAL INJ 1 G in NS 100 ML IV + SPIKE MINIBAG* 100 ML IV SCH ×2 (09:02→21:04)
[2019-06-20] MEDS: ZITHROMAX INJ 500 MG VIAL 500 MG in NS 250 ML IV 250 ML IV SCH (09:02)
[2019-06-20] MEDS: ASPIRIN EC 81 MG PO SCH (09:02)
[2019-06-20] MEDS: CLARITIN PO SCH (09:02)
[2019-06-20] MEDS: NORVASC TAB 10 MG PO SCH (09:02)
--- NOTE | 2019-06-20 18:13 | RAD ---
CHEST, 1 VIEWHISTORY: WHEEZING, SOBStudy: Single view of the chest.Comparison:NoneFindings:Cardiomegaly.No focal consolidations, pleural effusions or pneumothorax. Osseous structures demonstrate no acute abnormality.IMPRESSION:1. No acute cardiopulmonary process.Electronically signed by: DELGADO GILL (Jun 20, 2019 18:12:36)
[2019-06-20] MEDS: SOLU-Medrol 40 MG VIAL IVP SCH (18:33)
[2019-06-20] MEDS: MILK OF MAGNESIA PO SCH (21:04)
[2019-06-20] MEDS: SNACK - Diabetic Appropriate PO SCH (21:04)
[2019-06-20] MEDS: COLACE CAP 100 MG PO SCH (21:04)
[2019-06-20] MEDS: HumuLIN R SUBCUT PRN (21:30)
[2019-06-21] MEDS: DUONEB 0.5 MG/3 MG (3 mL) NEB SCH ×6 (01:32→20:05)
[2019-06-21] MEDS ORDERED: SOLU-Medrol 40 MG VIAL ONE (05:40)
[2019-06-21 06:11] LABS: BASOPHILS % (AUTO) 0.5 % (0.2-1.0); HEMATOCRIT 32.9 % (36.0-47.0); HEMOGLOBIN 10.5 g/dL (12.0-16.0); LYMPHOCYTES # (AUTO) 0.2 X10^3/uL (1.3-2.9); MEAN CORPUSCULAR HEMOGLOBIN 26.1 pg (27.0-34.0); MEAN CORPUSCULAR HGB CONC 32.1 g/dL (33.0-35.0); MEAN CORPUSCULAR VOLUME 81.5 fL (80.0-100.0); MEAN PLATELET VOLUME 8.1 fL (7.4-11.0); MONOCYTES # (AUTO) 0.1 x10^3/uL (0.3-0.8); MONOCYTES % (AUTO) 5.4 % (0.0-13.0); NEUTROPHILS # (AUTO) 1.9 x10^3/uL (2.2-4.8); NEUTROPHILS % (AUTO) 86.1 % (42.0-75.0); PLATELET COUNT 144 X10^3/uL (150.0-450.0); RED BLOOD COUNT 4.03 X10^6/uL (3.5-5.4); RED CELL DISTRIBUTION WIDTH 16.2 % (11.6-16.5); WHITE BLOOD COUNT 2.2 X10^3/uL (3.6-10.0)
[2019-06-21] MEDS: HumuLIN R SUBCUT PRN ×4 (06:15→21:45)
[2019-06-21 06:19] LABS: ALBUMIN 2.6 g/dL (3.4-5.0); CALCIUM 8.3 mg/dL (8.5-10.1); COR CA(FOR HYPOALB) 9.4 mg/dL (8.5-10.1); CREATININE 2.55 mg/dL (0.55-1.02); TOTAL PROTEIN 7.2 g/dL (6.4-8.2)
[2019-06-21] MEDS: SOLU-Medrol 40 MG VIAL IVP SCH ×2 (06:23→23:52)
[2019-06-21 06:57] LABS: BAND NEUTROPHILS % 2 % (0-10)
[2019-06-21 06:58] LABS: PLATELET MORPHOLOGY COMMENT NORMAL (NORMAL)
[2019-06-21] MEDS: NS 1000 ML 1,000 ML IV SCH (09:30)
[2019-06-21] MEDS: CLARITIN PO SCH (09:58)
[2019-06-21] MEDS: NORVASC TAB 10 MG PO SCH (09:58)
[2019-06-21] MEDS: FORTAZ or TAZICEF VIAL INJ 1 G in NS 100 ML IV + SPIKE MINIBAG* 100 ML IV SCH (09:58)
[2019-06-21] MEDS: ASPIRIN EC 81 MG PO SCH (09:58)
[2019-06-21] MEDS: LOVENOX INJ 30 MG SYR SC SCH (10:02)
[2019-06-21] MEDS: ZITHROMAX INJ 500 MG VIAL 500 MG in NS 250 ML IV 250 ML IV SCH (10:58)
[2019-06-21] MEDS: SNACK - Diabetic Appropriate PO SCH (20:30)
[2019-06-21] MEDS: COLACE CAP 100 MG PO SCH (21:53)
[2019-06-21] MEDS: MILK OF MAGNESIA PO SCH (21:54)
[2019-06-22] MEDS: DUONEB 0.5 MG/3 MG (3 mL) NEB SCH ×3 (01:19→08:48)
[2019-06-22] MEDS: HumuLIN R SUBCUT PRN ×2 (06:12→12:29)
[2019-06-22 06:30] LABS: BASOPHILS % (AUTO) 1.1 % (0.2-1.0); EOSINOPHILS % (AUTO) 0.2 % (0.9-2.9); HEMATOCRIT 33.5 % (36.0-47.0); HEMOGLOBIN 10.8 g/dL (12.0-16.0); LYMPHOCYTES # (AUTO) 0.3 X10^3/uL (1.3-2.9); LYMPHOCYTES % (AUTO) 11.2 % (21.0-51.0); MEAN CORPUSCULAR HEMOGLOBIN 26.4 pg (27.0-34.0); MEAN CORPUSCULAR HGB CONC 32.3 g/dL (33.0-35.0); MEAN CORPUSCULAR VOLUME 81.9 fL (80.0-100.0); MEAN PLATELET VOLUME 8.1 fL (7.4-11.0); MONOCYTES # (AUTO) 0.1 x10^3/uL (0.3-0.8); MONOCYTES % (AUTO) 4.5 % (0.0-13.0); NEUTROPHILS # (AUTO) 2.3 x10^3/uL (2.2-4.8); PLATELET COUNT 149 X10^3/uL (150.0-450.0); RED BLOOD COUNT 4.09 X10^6/uL (3.5-5.4); RED CELL DISTRIBUTION WIDTH 16.3 % (11.6-16.5); WHITE BLOOD COUNT 2.8 X10^3/uL (3.6-10.0)
[2019-06-22 06:50] LABS: ALBUMIN 2.9 g/dL (3.4-5.0); CALCIUM 8.6 mg/dL (8.5-10.1); CARBON DIOXIDE 26.9 mmol/L (21-32); COR CA(FOR HYPOALB) 9.5 mg/dL (8.5-10.1); CREATININE 2.28 mg/dL (0.55-1.02); TOTAL PROTEIN 7.5 g/dL (6.4-8.2)
[2019-06-22] MEDS ORDERED: SOLU-Medrol 40 MG VIAL ONE (09:27)
[2019-06-22] MEDS: LOVENOX INJ 30 MG SYR SC SCH (09:32)
[2019-06-22] MEDS: ASPIRIN EC 81 MG PO SCH (09:36)
[2019-06-22] MEDS: NORVASC TAB 10 MG PO SCH (09:36)
[2019-06-22] MEDS: CLARITIN PO SCH (09:36)
[2019-06-22] MEDS: SOLU-Medrol 40 MG VIAL IVP SCH (09:37)
[2019-06-22 11:33] VITALS: BP 153/81
== END 2019-06-22 13:00 | disposition home health service (06) | DRG 194 ==
LOC: ER 14:35 → ICU 14:35 → INTOOBSV 23:11
PROVIDERS: ADMIT Internal Medicine; ATTEND Internal Medicine
DX: R06.02 Shortness of breath; I69.341 Monoplegia of lower limb following cerebral infarction affecting right dominant side; N18.9 Chronic kidney disease, unspecified; I50.9 Heart failure, unspecified; R26.89 Other abnormalities of gait and mobility; J10.1 Influenza due to other identified influenza virus with other respiratory manifestations; R94.31 Abnormal electrocardiogram [ECG] [EKG]; E11.65 Type 2 diabetes mellitus with hyperglycemia; I11.0 Hypertensive heart disease with heart failure; I25.10 Atherosclerotic heart disease of native coronary artery without angina pectoris; J18.8 Other pneumonia, unspecified organism; N17.8 Other acute kidney failure; R94.4 Abnormal results of kidney function studies
CPT/HCPCS: 36415; 36600; 71010; 71045; 80048; 80053; 80061; 81001; 82550; 82553; 82803; 83036; 83605; 83735; 83880; 84484; 85025; 87040; 87070; 87205; 87502; 93005; 94640; 96365; 96374; 97110; 97162; 97166; 97530; 97535; 99284; A4222; G0378; J0456; J0713; J1650; J1815; J1940; J2920; J7030; J7050; J7620

== ENCOUNTER 2019-08-01 08:46 | Inpatient (IN) ==
--- NOTE | 2019-08-01 09:21 | DR.WEAKNES ---
HPI - Time Seen Time seen: 17:15 - Primary Care Physician Primary Care Physician: KARLEE - Complaints Chief Complaint Doctors Comments: Chief complaint is leg weakness and leg pain. States she has had this for years and was seen 2 days ago for same. Patient stays at home and is checked on by home health and her daughter lives with her. Chief Complaint:: [facility] DISPATCHED OUT TO PATIENT FOR AMS, WEAKNESS AND WHEEZING. PATIENT STATED THAT HER AIDE CAME TO SEE HER THIS MORNING AND STATED THAT SHE WAS BREATHING BAD SO THEY CALLED EMS. PATIENTS C/O OF WEAKNESS IN LEGS AND LEG PAIN AND STATED THAT SHE HAS BEEN FALLING ALOT THAT SHE FELL X2 THIS AM. PATIENT ALERT AND ORIENTED. - Reviewed Nurses Notes Reviewed: Yes - Source History Provided: Patient, EMS - Mode of Arrival Mode of Arrival: EMS - Timing Onset of Chief Complaint: 08/01/19 Since onset, symptoms are:: Worsened Onset of Symptoms Start Date: 07/26/15 (years) - Duration Duration: Intermittent Duration: Days - Context Onset: Spontaneous Symptoms: Weakness, Difficulty walking Stroke Symptoms: Weakness of limb (both legs weak and entire body weak) - Location Weakness Location: Generalized, Leg (both) - Associated Signs and Symptoms Associated Signs and Symptoms: None (mordid obesity) PMH - PMH Past Medical History: Yes Past Medical History: Coronary Artery Disease, Hypertension, Diabetes, CVA, Arthritis, CHF Past Surgical History: Yes Surgical History: , Hysterectomy - Family History History of Family Medical Conditions: Yes Family Medical History: Diabetes Mellitus, Cancer, [place], Hypertension - Social History Alcohol Use: None Do you use any recreational Drugs:: No - infectious screening Have you traveled outside the country in the last 6 months?: No Isolation: Droplet ROS - Review of Systems Constitutional: Weakness Eyes: No Symptoms Reported ENTM: No Symptoms Reported Respiratoy: Other (distant breath sounds) Cardiovascular: No Symptoms Reported Gastrointestinal/Abdominal: No Symptoms Reported Genitourinary: No Symptoms Reported Neurological: Weakness Musculoskeletal: Leg (pain both legs) Integumentary: Other (lymphedema) Hematologic/Lymphatic: No Symptoms Reported Endocrine: No Symptoms Reported Psychiatric: Depression All Other Systems: Reviewed and Negative PE - General Limitations: Other (morbid obesity with decreased ambulation and ROM of joints) General Appearance: Alert, In No Apparent Distress - Head Head Exam: Normal Inspection - Eyes Eye exam: Normal Appearance, EOMI Pupils: Regular, Round: Bilateral Anterior Chamber: Normal Inspection: Bilateral - ENT ENT Exam: Normal Exam Mouth Exam: Normal Inspection Throat Exam: Normal Inspection - Neck Neck Exam: Normal Inspection - Chest Chest Inspection: Normal Inspection - Respiratory Respiratory Exam: Bilateral Decreased Breath Sounds - Cardiovascular Cardiovascular Exam: Regular Rate - Abdominal Exam Abdominal Exam: Other (morbid obesity) - Extremities Extremities Exam: Edema, Other (bryan lower legs) - Back Back Exam: Normal Inspection - Neurologic Neurological Exam: Alert, Oriented X3, CN II-XII Intact Speech: Fluid Speech Cranial Nerve Exam: EOM Function (II, III, IV, ): Normal, Tongue Deviation: Normal - Psychiatric Psychiatric Exam: Depressed - Skin Skin Exam: Intact - Vital Signs Vitals: Temperature 98.7 F Pulse Rate [Brachial] 71 Pulse Rate 87 Respiratory Rate 18 Blood Pressure [Left Arm] 179/79 Blood Pressure 183/94 O2 Sat by Pulse Oximetry 100 Course - Consultation Called: 11:20 Call Returned: 11:20 Consultation Comments: case discussed with Dr. Mendes observation for weakness, dyspnea, rhabdomyolysis ROR - Labs Reviewed Result Diagrams: 08/03/19 05:47 08/03/19 05:47 - Labs Reviewed Laboratory: WBC 4.9 X10^3/uL (3.6-10.0) 08/01/19 09:40 RBC 4.12 X10^6/uL (3.5-5.4) 08/01/19 09:40 Hgb 10.6 g/dL (12.0-16.0) L 08/01/19 09:40 Hct 33.3 % (36.0-47.0) L 08/01/19 09:40 MCV 80.8 fL (80.0-100.0) 08/01/19 09:40 MCH 25.8 pg (27.0-34.0) L 08/01/19 09:40 MCHC 32.0 g/dL (33.0-35.0) L 08/01/19 09:40 RDW 17.2 % (11.6-16.5) H 08/01/19 09:40 Plt Count 214 X10^3/uL (150.0-450.0) 08/01/19 09:40 Plt Count Comment Adequate (ADEQUATE) 08/01/19 09:40 MPV 6.8 fL (7.4-11.0) L 08/01/19 09:40 Neut % (Auto) 63.9 % (42.0-75.0) 08/01/19 09:40 Lymph % (Auto) 29.9 % (21.0-51.0) 08/01/19 09:40 [place] % (Auto) 4.4 % (0.0-13.0) 08/01/19 09:40 Eos % (Auto) 1.2 % (0.9-2.9) 08/01/19 09:40 Baso % (Auto) 0.6 % (0.2-1.0) 08/01/19 09:40 Neut # (Auto) 3.2 x10^3/uL (2.2-4.8) 08/01/19 09:40 Lymph # (Auto) 1.5 X10^3/uL (1.3-2.9) 08/01/19 09:40 [place] # (Auto) 0.2 x10^3/uL (0.3-0.8) L 08/01/19 09:40 Eos # (Auto) 0.1 x10^3/uL (0.0-0.2) 08/01/19 09:40 Baso # (Auto) 0.0 X10^3/uL (0.0-0.1) 08/01/19 09:40 Absolute Nucleated RBC 0.1 /100WBC 08/01/19 09:40 Total Counted 100 08/01/19 09:40 Neutrophils % (Manual) 76 % (39-76) 08/01/19 09:40 Lymphocytes % (Manual) 20 % (13-43) 08/01/19 09:40 Monocytes % (Manual) 4 % (4-9) 08/01/19 09:40 Plt Morphology Comment Normal (NORMAL) 08/01/19 09:40 RBC Morphology Normal (NORMAL) 08/01/19 09:40 Sodium 138 mmol/L (136-145) 08/01/19 09:40 Corrected Sodium 139 mmol/L (136-145) 08/01/19 09:40 Potassium 4.2 mmol/L (3.5-5.1) 08/01/19 09:40 Chloride 103 mmol/L (98-107) 08/01/19 09:40 Carbon Dioxide 26.5 mmol/L (21-32) 08/01/19 09:40 BUN 36 mg/dL (7-18) H 08/01/19 09:40 Creatinine 2.35 mg/dL (0.55-1.02) H 08/01/19 09:40 Est GFR (MDRD) Af Amer 27 (>60) L 08/01/19 09:40 Est GFR (MDRD) Non-Af 22 (>60) L 08/01/19 09:40 Glucose 130 mg/dL (65-99) H 08/01/19 09:40 Calcium 8.8 mg/dL (8.5-10.1) 08/01/19 09:40 Corrected Calcium TNP 08/01/19 09:40 Total Bilirubin 0.40 mg/dL (0.2-1.0) 08/01/19 09:40 AST 23 Units/L (15-37) 08/01/19 09:40 ALT 23 Units/L (12-78) 08/01/19 09:40 Alkaline Phosphatase 80 Units/L (46-116) 08/01/19 09:40 Creatine Kinase 495 Units/L (26-192) H 08/01/19 09:40 CK-MB (CK-2) 3.2 ng/mL (0-4.0) 08/01/19 09:40 CK/CKMB % Calc 0.7 % (<4) 08/01/19 09:40 Troponin I < 0.02 ng/mL (0-1.5) 08/01/19 09:40 Total Protein 7.9 g/dL (6.4-8.2) 08/01/19 09:40 Albumin 3.5 g/dL (3.4-5.0) 08/01/19 09:40 Globulin 4.4 g/dL (2.5-4.5) 08/01/19 09:40 Albumin/Globulin Ratio 0.8 Ratio (1.1-2.1) L 08/01/19 09:40 Opioid - Opioid Risk Tool Age ([place] box if 16-45): No Total: 0 Total Score Risk Category: Low Risk - Diagnosis Discharge Problem: Weakness generalized Dyspnea Qualifiers: Dyspnea type: dyspnea on exertion Qualified Code(s): R06.09 - Other forms of dyspnea - Discharge Plan Disposition: 09 ADMITTED INPATIENT Condition: Stable
[2019-08-01] MEDS ORDERED: TORADOL 60 MG VIAL IM ONE (09:32)
[2019-08-01] MEDS ORDERED: TORADOL 60 MG VIAL ONE (09:37)
[2019-08-01 09:56] LABS: BASOPHILS % (AUTO) 0.6 % (0.2-1.0); EOSINOPHILS # (AUTO) 0.1 x10^3/uL (0.0-0.2); EOSINOPHILS % (AUTO) 1.2 % (0.9-2.9); HEMATOCRIT 33.3 % (36.0-47.0); HEMOGLOBIN 10.6 g/dL (12.0-16.0); LYMPHOCYTES # (AUTO) 1.5 X10^3/uL (1.3-2.9); LYMPHOCYTES % (AUTO) 29.9 % (21.0-51.0); MEAN CORPUSCULAR HEMOGLOBIN 25.8 pg (27.0-34.0); MEAN CORPUSCULAR VOLUME 80.8 fL (80.0-100.0); MEAN PLATELET VOLUME 6.8 fL (7.4-11.0); MONOCYTES # (AUTO) 0.2 x10^3/uL (0.3-0.8); MONOCYTES % (AUTO) 4.4 % (0.0-13.0); NEUTROPHILS # (AUTO) 3.2 x10^3/uL (2.2-4.8); NEUTROPHILS % (AUTO) 63.9 % (42.0-75.0); PLATELET COUNT 214 X10^3/uL (150.0-450.0); RED BLOOD COUNT 4.12 X10^6/uL (3.5-5.4); RED CELL DISTRIBUTION WIDTH 17.2 % (11.6-16.5); WHITE BLOOD COUNT 4.9 X10^3/uL (3.6-10.0)
[2019-08-01 10:08] LABS: BLOOD UREA NITROGEN 36 mg/dL (7-18); CALCIUM 8.8 mg/dL (8.5-10.1); CARBON DIOXIDE 26.5 mmol/L (21-32); CHLORIDE 103 mmol/L (98-107); COR NA(FOR HYPERGLY) 139 mmol/L (136-145); CREATININE 2.35 mg/dL (0.55-1.02); SODIUM 138 mmol/L (136-145); TROPONIN I < 0.02 ng/mL (0-1.5); eGFR NON BLACK RACES 22 (>60)
[2019-08-01 10:14] LABS: PLATELET MORPHOLOGY COMMENT NORMAL (NORMAL)
[2019-08-01 10:32] LABS: ALANINE AMINOTRANSFERASE 23 Units/L (12-78); ALBUMIN 3.5 g/dL (3.4-5.0); ALKALINE PHOSPHATASE 80 Units/L (46-116); ASPARTATE AMINO TRANSFERASE 23 Units/L (15-37); CKMB % 0.7 % (<4); CREATINE KINASE 495 Units/L (26-192); CREATINE KINASE MB 3.2 ng/mL (0-4.0); TOTAL PROTEIN 7.9 g/dL (6.4-8.2)
[2019-08-01] MEDS ORDERED: NS 1000 ML 1,000 ML ONE (11:58)
[2019-08-01] MEDS: NS 1000 ML 1,000 ML IV SCH (12:08)
--- NOTE | 2019-08-01 12:36 | RAD ---
HISTORYsob, wheezingSTUDYCHEST, 1 VIEWCOMPARISONChest film July 30, 2019.FINDINGSThe trachea is midline. The cardiac silhouette is mildly enlarged. There is mild central vascular congestion but no interstitial alveolar edema pleural effusions or blaise CHF. The lungs are clear without focal infiltrate or effusion. The bony thorax is unremarkable.IMPRESSIONStable cardiomegaly and mild vascular congestion but no findings of CHF.Electronically signed by: NARENDRA CRABTREE (Aug 01, 2019 12:34:16)
[2019-08-01] MEDS ORDERED: PREVNAR 13 IM ONE (13:58)
[2019-08-01 14:41] VITALS: BMI 61.4
--- NOTE | 2019-08-01 18:30 | DR.H&P ---
H&P - History & Physical for Day of: H&P Date: 08/01/19 - Chief Complaint Chief Complaint: WEAKNESS, LEG PAIN, FALL - History of Present Illness History of Present Illness: PT IS 68 BF ER ADMISSION AFTER PRESENTING WITH REPORTS [facility] DISPATCHED OUT TO PATIENT FOR AMS, WEAKNESS AND WHEEZING. PATIENT STATED THAT HER AIDE CAME TO SEE HER THIS MORNING AND STATED THAT SHE WAS BREATHING BAD SO THEY CALLED EMS. PATIENTS C/O OF WEAKNESS IN LEGS AND LEG PAIN AND STATED THAT SHE HAS BEEN FALLING ALOT THAT SHE FELL X2 THIS AM. PT HAD PMH OF CVA, COPD, HTN,DM, CRF, OA. PT ADMITTED FOR TREATMENT OF ACUTE ILLNESS. - Past Medical History Past Medical History: Coronary Artery Disease, Hypertension, Diabetes, CVA, Arthritis, CHF - Past Surgical History Surgical History: Hysterectomy - Family History Family Medical History: Diabetes Mellitus, Cancer, [place], Hypertension - Social History Does patient currently use any type of tobacco product: No Have you used tobacco products in the last 12 months: No Type of Tobacco Use: None Does any household member use tobacco: Yes Alcohol Use: None Drug Use: None - Medications Home Medications: No Known Drug Allergies Allergy (Verified 07/01/18 02:37) CONTINUE taking the following medications Humulin R Regular U-100 Insuln 0 sliding scale dose SUBCUT ACHS 08/01/19 [History] ipratropium-albuterol 3 ml INHALATION Q4RESP PRN 08/01/19 [History] - Review of Systems Constitutional: Weakness Eyes: No Symptoms Reported ENT: No Symptoms Reported Respiratory: Shortness of Breath, Wheezing Cardiovascular: Edema Gastrointestinal: No Symptoms Reported Genitourinary: Frequency, Incontinence Musculoskeletal: Back Pain, Leg Pain Skin: No Symptoms Reported Neurological: Weakness - Physical Exam Vital Signs: Temperature 97.5 F Pulse Rate [Brachial] 72 Pulse Rate 87 Respiratory Rate 20 Blood Pressure [Left Arm] 188/86 Blood Pressure 183/94 O2 Sat by Pulse Oximetry 100 Oriented: Person Eyes: Normal Ear: Normal Nose: Normal Throat: Normal Respiratory: Wheezes Throughout, RLL Diminished, LLL Diminished Cardiovascular: Normal, Edema : Normal Auscultation: Bowel Sounds: Normal Palpation: Normal Tenderness: Normal Skin: Decreased Turgur Musculoskeletal: Right, Left, Back:Thoracic, Back:Lumbar, Motor Deficit, Sensory Deficit Psychiatric: Anxiety Affect: Anxious Speech Pattern: Appropriate, Delayed - Assessment/Plan (1) Rhabdomyolysis Qualifiers: Rhabdomyolysis type: non-traumatic Qualified Code(s): M62.82 - Rhabdomyolysis Status: Acute Plan: ADMIT, SERIAL CE AND EKG. ADMISSION LABS, EKG MONITORING. BP CONTROL, STRICT I & OS. GENTLE IV HYDRATION. VERIFY HOME MEDICATION, PAIN CONTROL. PT/OT, RESP CONSULT (2) Diabetes Status: Acute (3) Dyspnea Qualifiers: Dyspnea type: dyspnea on exertion Qualified Code(s): R06.09 - Other forms of dyspnea Status: Acute (4) Generalized weakness Status: Acute (5) Renal failure (ARF), acute on chronic Status: Acute (6) CHF (congestive heart failure) Status: Chronic (7) Hypertension Status: Chronic - Allergies Allergies/Adverse Reactions: Allergies Allergy/AdvReac Type Severity Reaction Status Date / Time No Known Drug Allergies Allergy Verified 07/01/18 02:37
[2019-08-02] MEDS: NS 1000 ML 1,000 ML IV SCH ×2 (00:48→15:18)
[2019-08-02 06:44] LABS: BASOPHILS % (AUTO) 0.4 % (0.2-1.0); EOSINOPHILS # (AUTO) 0.1 x10^3/uL (0.0-0.2); EOSINOPHILS % (AUTO) 1.5 % (0.9-2.9); HEMATOCRIT 35.9 % (36.0-47.0); HEMOGLOBIN 11.2 g/dL (12.0-16.0); LYMPHOCYTES # (AUTO) 1.2 X10^3/uL (1.3-2.9); LYMPHOCYTES % (AUTO) 26.7 % (21.0-51.0); MEAN CORPUSCULAR HEMOGLOBIN 25.9 pg (27.0-34.0); MEAN CORPUSCULAR HGB CONC 31.2 g/dL (33.0-35.0); MEAN PLATELET VOLUME 8.1 fL (7.4-11.0); MONOCYTES # (AUTO) 0.3 x10^3/uL (0.3-0.8); MONOCYTES % (AUTO) 6.2 % (0.0-13.0); NEUTROPHILS # (AUTO) 2.9 x10^3/uL (2.2-4.8); NEUTROPHILS % (AUTO) 65.2 % (42.0-75.0); PLATELET COUNT 186 X10^3/uL (150.0-450.0); RED BLOOD COUNT 4.33 X10^6/uL (3.5-5.4); RED CELL DISTRIBUTION WIDTH 17.7 % (11.6-16.5); WHITE BLOOD COUNT 4.5 X10^3/uL (3.6-10.0)
[2019-08-02 06:51] LABS: CALCIUM 8.7 mg/dL (8.5-10.1); CARBON DIOXIDE 27.1 mmol/L (21-32); COR CA(FOR HYPOALB) 9.5 mg/dL (8.5-10.1); CREATININE 2.36 mg/dL (0.55-1.02); TOTAL PROTEIN 7.3 g/dL (6.4-8.2)
[2019-08-02 07:11] LABS: PLATELET MORPHOLOGY COMMENT NORMAL (NORMAL)
[2019-08-02] MEDS ORDERED: DUONEB 0.5 MG/3 MG (3 mL) NEB PRN (08:11)
[2019-08-02] MEDS ORDERED: APRESOLINE TAB 10 MG PO SCH ×2 (08:15→14:00)
[2019-08-02] MEDS: LOVENOX INJ 40 MG SYR SC SCH (11:10)
[2019-08-02] MEDS: LANTUS SC SCH (11:10)
[2019-08-02] MEDS: COREG TAB 6.25 MG PO SCH ×2 (11:11→21:14)
[2019-08-02] MEDS: NEURONTIN CAP 300 MG PO SCH ×3 (11:11→21:14)
[2019-08-02] MEDS: CATAPRES TAB 0.1 MG PO SCH ×2 (11:11→21:14)
[2019-08-02] MEDS: ASPIRIN EC 81 MG PO SCH (11:11)
[2019-08-02] MEDS: NORVASC TAB 10 MG PO SCH (11:12)
[2019-08-02] MEDS: CLARITIN PO SCH (11:12)
[2019-08-02] MEDS: PriLOSEC PO SCH (11:16)
[2019-08-02 17:40] LABS: BILIRUBIN,URINE NEGATIVE (NEGATIVE); BLOOD/HEMOGLOBIN,URINE 2+ (NEGATIVE); GLUCOSE, URINE NEGATIVE (NEGATIVE); KETONES,URINE NEGATIVE (NEGATIVE); LEUKOCYTE ESTERASE ,URINE NEGATIVE (NEGATIVE); NITRITES,URINE NEGATIVE (NEGATIVE); PROTEIN,URINE 4+ (NEGATIVE); UROBILINOGEN,URINE NORMAL (NORMAL)
[2019-08-02] MEDS ORDERED: NORCO 5/325 MG TAB PO PRN (17:46)
[2019-08-02 17:47] LABS: AMORPHOUS SEDIMENT,UR 3+ /HPF (NEGATIVE); APPEARANCE,URINE HAZY (CLEAR); BACTERIA,URINE TRACE /HPF (NEGATIVE); COLOR,URINE YELLOW (YELLOW); SQUAMOUS EPITHELIAL CELL,UR RARE /HPF (NEGATIVE)
--- NOTE | 2019-08-02 17:50 | PCM.PROG ---
Progress Note - Progress Note for Day of Date of Exam: 08/02/19 - Subjective Subjective: PT IS 68BF ER ADMISSION WITH CO WEAKNESS AND SOB WITH RECENTLY FALLS DUE TO LEGS GIVING OUT. PT HAS PMH OF CVA, DM, COPD, HTN, [place]. PT ADMITTED FOR TREATMENT OF ACUTE ON CHRONIC RENAL FAILURE WITH BUN 32, CREAT 2.36 THIS AM AND RHABDO, CREATNINE KINASE DOWN TO 314 WITH GENTLE IV HYDRATION. PT HAD DIFFUSE RHONCHI ON EXAM WITH BILATERAL DIMINSHED LUNG BASES. PT STARTED ON IV LASIX WITH STRICT I&OS, RESP THERAPY, ABG AND CT LSPINE. CONSIDER PT EVALUATION. WE WILL CONTINUE CARDIAC MONITORING AND BS CONTROL. - Past Medical Family Social History Past Med/Fam/Surg Hx: No changes since H&P Allergies: Allergies No Known Drug Allergies Allergy (Verified 07/01/18 02:37) - Review of Systems ROS: No change since H&P - Vital Signs and I&O's Vital Signs: Temperature 98.2 F Pulse Rate [Brachial] 71 Pulse Rate 87 Respiratory Rate 18 Blood Pressure [Left Arm] 99/62 Blood Pressure 183/94 O2 Sat by Pulse Oximetry 93 Intake and Output: Intake & Output 07/31/19 08/01/19 08/02/19 08/03/19 11:59 11:59 11:59 11:59 Intake Total 1890 / 1890 1220 / 1220 Balance 189 / 1890 1220 / 1220 - Physical Exam Oriented: Person Eyes: Normal Ear: Normal Nose: Normal Throat: Normal Respiratory: Diminished, Wheezes Cardiovascular: Normal, Edema : Normal Auscultation: Bowel Sounds: Normal Tenderness: Normal Skin: Decreased Turgur Musculoskeletal: Right, Left, Back:Thoracic, Back:Lumbar, Motor Deficit, Sensory Deficit Psychiatric: Anxiety Affect: Anxious Speech Pattern: Clear - Laboratory and Diagnostics Result Diagrams: 08/02/19 05:45 08/02/19 05:45 Labs: Laboratory WBC 4.5 X10^3/uL (3.6-10.0) 08/02/19 05:45 RBC 4.33 X10^6/uL (3.5-5.4) 08/02/19 05:45 Hgb 11.2 g/dL (12.0-16.0) L 08/02/19 05:45 Hct 35.9 % (36.0-47.0) L 08/02/19 05:45 MCV 83.0 fL (80.0-100.0) 08/02/19 05:45 MCH 25.9 pg (27.0-34.0) L 08/02/19 05:45 MCHC 31.2 g/dL (33.0-35.0) L 08/02/19 05:45 RDW 17.7 % (11.6-16.5) H 08/02/19 05:45 Plt Count 186 X10^3/uL (150.0-450.0) 08/02/19 05:45 Plt Count Comment Adequate (ADEQUATE) 08/02/19 05:45 MPV 8.1 fL (7.4-11.0) 08/02/19 05:45 Neut % (Auto) 65.2 % (42.0-75.0) 08/02/19 05:45 Lymph % (Auto) 26.7 % (21.0-51.0) 08/02/19 05:45 [place] % (Auto) 6.2 % (0.0-13.0) 08/02/19 05:45 Eos % (Auto) 1.5 % (0.9-2.9) 08/02/19 05:45 Baso % (Auto) 0.4 % (0.2-1.0) 08/02/19 05:45 Neut # (Auto) 2.9 x10^3/uL (2.2-4.8) 08/02/19 05:45 Lymph # (Auto) 1.2 X10^3/uL (1.3-2.9) L 08/02/19 05:45 [place] # (Auto) 0.3 x10^3/uL (0.3-0.8) 08/02/19 05:45 Eos # (Auto) 0.1 x10^3/uL (0.0-0.2) 08/02/19 05:45 Baso # (Auto) 0.0 X10^3/uL (0.0-0.1) 08/02/19 05:45 Absolute Nucleated RBC 0.2 /100WBC 08/02/19 05:45 Total Counted 100 08/02/19 05:45 Neutrophils % (Manual) 73 % (39-76) 08/02/19 05:45 Lymphocytes % (Manual) 21 % (13-43) 08/02/19 05:45 Monocytes % (Manual) 4 % (4-9) 08/02/19 05:45 Eosinophils % (Manual) 2 % (0-6) 08/02/19 05:45 Plt Morphology Comment Normal (NORMAL) 08/02/19 05:45 RBC Morphology Normal (NORMAL) 08/02/19 05:45 Sodium 140 mmol/L (136-145) 08/02/19 05:45 Corrected Sodium 140 mmol/L (136-145) 08/02/19 05:45 Potassium 4.7 mmol/L (3.5-5.1) 08/02/19 05:45 Chloride 108 mmol/L (98-107) H 08/02/19 05:45 Carbon Dioxide 27.1 mmol/L (21-32) 08/02/19 05:45 BUN 32 mg/dL (7-18) H 08/02/19 05:45 Creatinine 2.36 mg/dL (0.55-1.02) H 08/02/19 05:45 Est GFR (MDRD) Af Amer 26 (>60) L 08/02/19 05:45 Est GFR (MDRD) Non-Af 22 (>60) L 08/02/19 05:45 Glucose 111 mg/dL (65-99) H 08/02/19 05:45 POC Glucose (mg/dL) 99 mg/dL (65-99) 08/02/19 16:32 Calcium 8.7 mg/dL (8.5-10.1) 08/02/19 05:45 Corrected Calcium 9.5 mg/dL (8.5-10.1) 08/02/19 05:45 Total Bilirubin 0.20 mg/dL (0.2-1.0) 08/02/19 05:45 AST 20 Units/L (15-37) 08/02/19 05:45 ALT 17 Units/L (12-78) 08/02/19 05:45 Alkaline Phosphatase 73 Units/L (46-116) 08/02/19 05:45 Creatine Kinase 314 Units/L (26-192) H 08/02/19 08:34 CK-MB (CK-2) 3.2 ng/mL (0-4.0) 08/01/19 09:40 CK/CKMB % Calc 0.7 % (<4) 08/01/19 09:40 Troponin I < 0.02 ng/mL (0-1.5) 08/01/19 09:40 Total Protein 7.3 g/dL (6.4-8.2) 08/02/19 05:45 Albumin 3.0 g/dL (3.4-5.0) L 08/02/19 05:45 Globulin 4.3 g/dL (2.5-4.5) 08/02/19 05:45 Albumin/Globulin Ratio 0.7 Ratio (1.1-2.1) L 08/02/19 05:45 - Plan (1) Rhabdomyolysis Qualifiers: Rhabdomyolysis type: non-traumatic Qualified Code(s): M62.82 - R habdomyolysis Plan: SERIAL CE AND EKG. AM LABS, EKG MONITORING. BP CONTROL, STRICT I & OS. GENTLE IV HYDRATION. VERIFY HOME MEDICATION, PAIN CONTROL. PT/OT, RESP CONSU LT, SUPPLEMENTAL O2, ABG. CT LUMBAR SPINE, PAIN CONTROL (2) Diabetes Status: Acute (3) Dyspnea Status: Acute Qualifiers: Dyspnea type: dyspnea on exertion Qualified Code(s): R06.09 - Other forms of dyspnea (4) Generalized weakness Status: Acute (5) Renal failure (ARF), acute on chronic Status: Acute (6) CHF (congestive heart failure) Status: Chronic (7) Hypertension Status: Chronic
[2019-08-02] MEDS ORDERED: SOLU-Medrol 40 MG VIAL IVP SCH (18:00)
[2019-08-02] MEDS: LASIX IVP SCH ×2 (21:12→21:13)
[2019-08-02] MEDS: SNACK - Diabetic Appropriate PO SCH (21:13)
[2019-08-02] MEDS: APRESOLINE TAB 10 MG PO SCH (21:14)
[2019-08-03 06:47] LABS: BASOPHILS % (AUTO) 0.5 % (0.2-1.0); HEMATOCRIT 34.5 % (36.0-47.0); HEMOGLOBIN 10.7 g/dL (12.0-16.0); LYMPHOCYTES # (AUTO) 0.6 X10^3/uL (1.3-2.9); LYMPHOCYTES % (AUTO) 11.5 % (21.0-51.0); MEAN CORPUSCULAR HEMOGLOBIN 25.9 pg (27.0-34.0); MEAN CORPUSCULAR VOLUME 83.3 fL (80.0-100.0); MEAN PLATELET VOLUME 7.9 fL (7.4-11.0); MONOCYTES # (AUTO) 0.1 x10^3/uL (0.3-0.8); MONOCYTES % (AUTO) 1.5 % (0.0-13.0); NEUTROPHILS # (AUTO) 4.5 x10^3/uL (2.2-4.8); NEUTROPHILS % (AUTO) 86.5 % (42.0-75.0); PLATELET COUNT 191 X10^3/uL (150.0-450.0); RED BLOOD COUNT 4.15 X10^6/uL (3.5-5.4); RED CELL DISTRIBUTION WIDTH 17.5 % (11.6-16.5); WHITE BLOOD COUNT 5.2 X10^3/uL (3.6-10.0)
[2019-08-03] MEDS: NEURONTIN CAP 300 MG PO SCH ×3 (06:49→21:00)
[2019-08-03 07:05] LABS: ALBUMIN 2.7 g/dL (3.4-5.0); CALCIUM 8.3 mg/dL (8.5-10.1); CARBON DIOXIDE 24.7 mmol/L (21-32); COR CA(FOR HYPOALB) 9.3 mg/dL (8.5-10.1); CREATININE 2.48 mg/dL (0.55-1.02)
[2019-08-03 07:18] LABS: PLATELET MORPHOLOGY COMMENT NORMAL (NORMAL)
[2019-08-03 08:02] LABS: ABG ALLEN TEST POS
[2019-08-03] MEDS: LOVENOX INJ 40 MG SYR SC SCH (08:59)
[2019-08-03] MEDS: ASPIRIN EC 81 MG PO SCH (09:00)
[2019-08-03] MEDS: LASIX IVP SCH ×2 (09:00→09:01)
[2019-08-03] MEDS: APRESOLINE TAB 10 MG PO SCH ×2 (09:00→21:00)
[2019-08-03] MEDS: NORVASC TAB 10 MG PO SCH (09:00)
[2019-08-03] MEDS: CATAPRES TAB 0.1 MG PO SCH ×2 (09:00→20:59)
[2019-08-03] MEDS: COREG TAB 6.25 MG PO SCH ×2 (09:00→21:00)
[2019-08-03] MEDS: PriLOSEC PO SCH (09:00)
[2019-08-03] MEDS: LANTUS SC SCH (09:01)
[2019-08-03] MEDS: CLARITIN PO SCH (09:01)
[2019-08-03] MEDS: KAYEXALATE SUSP PO SCH ×2 (14:44→20:57)
[2019-08-03] MEDS: NS 1000 ML 1,000 ML IV SCH ×2 (14:51→16:32)
[2019-08-03] MEDS: DUONEB 0.5 MG/3 MG (3 mL) NEB SCH ×2 (16:50→20:23)
[2019-08-03] MEDS: SNACK - Diabetic Appropriate PO SCH (20:59)
[2019-08-04] MEDS: DUONEB 0.5 MG/3 MG (3 mL) NEB SCH ×4 (00:25→12:13)
[2019-08-04] MEDS: NEURONTIN CAP 300 MG PO SCH ×2 (05:26→14:57)
[2019-08-04 06:36] LABS: EOSINOPHILS # (AUTO) 0.1 x10^3/uL (0.0-0.2); EOSINOPHILS % (AUTO) 1.7 % (0.9-2.9); HEMATOCRIT 30.4 % (36.0-47.0); HEMOGLOBIN 9.7 g/dL (12.0-16.0); LYMPHOCYTES # (AUTO) 1.9 X10^3/uL (1.3-2.9); LYMPHOCYTES % (AUTO) 36.7 % (21.0-51.0); MEAN CORPUSCULAR HEMOGLOBIN 26.4 pg (27.0-34.0); MEAN CORPUSCULAR VOLUME 82.5 fL (80.0-100.0); MONOCYTES # (AUTO) 0.3 x10^3/uL (0.3-0.8); MONOCYTES % (AUTO) 5.1 % (0.0-13.0); NEUTROPHILS # (AUTO) 2.8 x10^3/uL (2.2-4.8); NEUTROPHILS % (AUTO) 55.5 % (42.0-75.0); PLATELET COUNT 174 X10^3/uL (150.0-450.0); RED BLOOD COUNT 3.68 X10^6/uL (3.5-5.4); RED CELL DISTRIBUTION WIDTH 17.6 % (11.6-16.5); WHITE BLOOD COUNT 5.1 X10^3/uL (3.6-10.0)
[2019-08-04 06:38] LABS: ALANINE AMINOTRANSFERASE 18 Units/L (12-78); ALBUMIN 2.9 g/dL (3.4-5.0); ALKALINE PHOSPHATASE 63 Units/L (46-116); ASPARTATE AMINO TRANSFERASE 12 Units/L (15-37); BLOOD UREA NITROGEN 35 mg/dL (7-18); CARBON DIOXIDE 25.5 mmol/L (21-32); CHLORIDE 106 mmol/L (98-107); COR CA(FOR HYPOALB) 8.9 mg/dL (8.5-10.1); CREATININE 2.41 mg/dL (0.55-1.02); SODIUM 138 mmol/L (136-145); TOTAL PROTEIN 6.7 g/dL (6.4-8.2); eGFR NON BLACK RACES 21 (>60)
[2019-08-04 06:50] LABS: PLATELET MORPHOLOGY COMMENT NORMAL (NORMAL)
[2019-08-04] MEDS: PriLOSEC PO SCH (08:52)
[2019-08-04] MEDS: COREG TAB 6.25 MG PO SCH (08:52)
[2019-08-04] MEDS: CATAPRES TAB 0.1 MG PO SCH (08:53)
[2019-08-04] MEDS: CLARITIN PO SCH (08:53)
[2019-08-04] MEDS: LOVENOX INJ 40 MG SYR SC SCH (08:53)
[2019-08-04] MEDS: ASPIRIN EC 81 MG PO SCH (08:53)
[2019-08-04] MEDS: NORVASC TAB 10 MG PO SCH (08:53)
[2019-08-04] MEDS: APRESOLINE TAB 10 MG PO SCH (08:53)
[2019-08-04] MEDS: LANTUS SC SCH (08:54)
[2019-08-04] MEDS ORDERED: LASIX IVP SCH (09:00)
[2019-08-04] MEDS ORDERED: MILK OF MAGNESIA PO SCH (12:00)
[2019-08-04 12:42] VITALS: BP 128/75
[2019-08-04] MEDS ORDERED: COLACE CAP 100 MG PO SCH (21:00)
== END 2019-08-04 15:52 | disposition home health service (06) | DRG 558 ==
LOC: ER 08:46 → MED/SURG 08:46
PROVIDERS: ADMIT Internal Medicine; ATTEND Internal Medicine
DX: J20.8 Acute bronchitis due to other specified organisms; Z91.81 History of falling; R06.02 Shortness of breath; Z99.81 Dependence on supplemental oxygen; M62.82 Rhabdomyolysis; R41.82 Altered mental status, unspecified; N17.8 Other acute kidney failure; J44.1 Chronic obstructive pulmonary disease with (acute) exacerbation; R94.4 Abnormal results of kidney function studies; R26.89 Other abnormalities of gait and mobility; I13.0 Hypertensive heart and chronic kidney disease with heart failure and stage 1 through stage 4 chronic kidney disease, or unspecified chronic kidney disease; I50.9 Heart failure, unspecified; J44.0 Chronic obstructive pulmonary disease with (acute) lower respiratory infection; N18.9 Chronic kidney disease, unspecified; M79.606 Pain in leg, unspecified; Z79.899 Other long term (current) drug therapy; E11.65 Type 2 diabetes mellitus with hyperglycemia; M51.36 Other intervertebral disc degeneration, lumbar region
CPT/HCPCS: 36415; 36600; 71010; 71045; 80053; 81001; 82550; 82553; 82803; 83880; 84484; 85025; 87086; 90471; 94640; 94660; 94760; 96365; 96372; 97162; 97167; 97530; 99284; A4216; A4222; A4618; A7030; G0378; J1650; J1815; J1885; J1940; J2920; J7030; J7620